=== PATIENT | male | born 1950 | race Hispanic/Latino ===

== ENCOUNTER 2018-06-04 16:01 | Inpatient (IN) | payer MEDICARE ==
[~2018-06-04] VITALS: Ht 165.1 cm; Wt 75.4 kg
--- OUTSIDE RECORDS SUMMARY | 2018-06-04 16:07 | XMS REPORT | Summary of Care ---
Author Author KAT García, SHAWNEE Organization Unknown Address [facility] Phone Unavailable Care Team Providers Care Cabinet Finisher Name Role Phone R.N. 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 Active Isosorbide Mononitrate ER 60 MG Oral Tablet Extended Release 24 Hour * Refills: 0 R.N. Active Aspirin 81 MG TABS * Refills: 0 R.N. Active Atorvastatin Calcium 80 MG Oral Tablet * Refills: 0 R.N. Active Bumetanide 2 MG Oral Tablet * Refills: 0 R.N. Active Famotidine 20 MG Oral Tablet * Refills: 0 R.N. Active Carvedilol 6.25 MG Oral Tablet * Refills: 0 R.N. Active Clopidogrel Bisulfate 75 MG Oral Tablet * Refills: 0 R.N. Active Warfarin Sodium 6 MG Oral Tablet * Refills: 0 R.N. Active Allergies and Adverse Reactions Name Dates Details Allergy history not documented Status: Past Medical History Name Dates Details History of Stage 3 chronic kidney disease (585.3, N18.3) Status: Resolved History of type 2 diabetes mellitus (V12.29, Z86.39) Status: Resolved Procedures Procedure Dates Details [QL] BASIC METABOLIC PANEL W/EGFR Date: 10-Mar-2018 [QL] BASIC METABOLIC PANEL W/EGFR Date: 25-Mar-2018 [QLH] FERRITIN Date: 25-Mar-2018 [QL] VITAMIN D, 25-HYDROXY, LC/MS/MS Date: 25-Mar-2018 [QL] PTH, INTACT (WITHOUT CALCIUM) Date: 25-Mar-2018 Immunization Name Dates Details Immunizations not documented Social History Name Dates Details Unknown if ever smoked Vital Signs Date Test Result Details [id number] BP Systolic 104 mm[Hg] Status: BP Diastolic 63 mm[Hg] Status: Height 65 in Status: Weight 167 lb Status: Body Mass Index Calculated 27.79 kg/m2 Status: Body Surface Area Calculated 1.83 m2 Status: Heart Rate 66 /min Status: Respiration Rate 18 /min Status: O2 SAT 93 % Status: Comments: Source: RA Results Date Description Value Details :06 [[facility]] BASIC METABOLIC PANEL W/EGFR Glucose Lvl 149 mg/dl (Above high threshold) Range: 70-99 Comments: Adult reference range values reflect the clinical guidelinesof the [place] [employer]. Blood Urea Nitrogen 49 mg/dl (Above high threshold) Range: 7-22 Creatinine Lvl 2.90 mg/dl (Above high threshold) Range: 0.50-1.40 Sodium Level 143 {mEq/l} Range: 135-145 Potassium Level 5.1 {mEq/l} Range: 3.5-5.1 Chloride Level 110 {mEq/l} (Above high threshold) Range: 95-109 Carbon Dioxide 27 {mEq/l} Range: 24-32 AGAP 11.1 {mEq/l} Range: 10.0-20.0 Calcium Level Total 8.0 mg/dl (Below low threshold) Range: 8.5-10.5 eGFR 21 {ML/MIN/1.7} Comments: The eGFR is calculated using the CKD-EPI formula. In most young, healthyindividuals the eGFR will be >90 mL/min/1.73m2. The eGFR declines with age. AneGFR of 60-89 may be normal in some populations, particularly the elderly, forwhom the CKD-EPI formula has not been extensively validated. Use of the eGFR isnot recommended in the following populations:Individuals with unstable creatinine concentrations, including patients and those with serious co-morbid conditions.Patients with extremes in muscle mass or diet.The data above are obtained from the National Kidney Disease Education Program(NKDEP) which additionally recommends that when the eGFR is used in patientswith extremes of body mass index for purposes of drug dosing, the eGFR shouldbe multiplied by the estimated BMI. :06 [QL] FERRITIN Ferritin Lvl 384 ng/ml (Above high threshold) Range: 22-275 :06 [QL] IRON AND TOTAL IRON BINDING CAPACITY Iron 28 ug/dL (Below low threshold) Range: 45-160 % Satur Fe 16 % Range: 12-57 TIBC 176 ug/dL (Below low threshold) Range: 228-428 UIBC 148 ug/dL Range: 110-370 [id number] [[facility]] PTH, INTACT (WITHOUT CALCIUM) Parathyroid Hormone Intact 145.5 pg/ml (Above high threshold) Range: 18.4-80.1 :06 [[facility]] URINALYSIS, COMPLETE UA Turbidity Clear Range: Clear UA Spec Grav 1.012 Range: <=1.030 UA pH 5.0 Range: 5.0-8.0 UA Protein >=300 mg/dl (Abnormal) Range: Negative UA Ketones Negative mg/dl Range: Negative UA Bili Negative Range: Negative UA Blood Small (Abnormal) Range: Negative UA Nitrite Negative Range: Negative UA Leuk Est Negative Range: Negative UA RBC 4 {/HPF} (Above high threshold) Range: 0-2 UA WBC 2 {/HPF} Range: 0-5 UA Mucus Few {/LPF} Range: None Seen UA Sq Epi Occasional {/LPF} Range: Few Urine Hyaline Casts 3 {/LPF} (Above high threshold) Range: 0-2 UA Color Ltyellow UA Glucose 50 mg/dl UROBILINOGEN <=1.0 mg/dl Range: 0.1-1.0 [id number] [] PROTEIN, TOTAL W/CREAT, RANDOM URINE U Creatinine 66.90 mg/dl Comments: No established reference ranges. Urine Protein Level 506.5 mg/dl Comments: No established reference ranges. U Prot/Creat 7.57 [id number] [[facility]] VITAMIN D, 25-HYDROXY, LC/MS/MS Vitamin D, 25-OH, Total 10.0 ng/ml (Below low threshold) Range: 30.0-100.0 Comments: Reference range is based on recommendations in the [employer] Clinical Practice Guideline (J Clin Endocrinol [id number];96:8230-6681) Plan of Care Name Dates Details Planned Observations Planned Goals not documented Planned Encounters Appointment; SHAWNEE STEPHENS M.D. On: 29-Jul-2018 14:15 Instructions Name Dates Details Instructions not documented Encounters Appointment; SHAWNEE STEPHENS M.D. Encounter Diagnosis: Problem not documented On: 25-Mar-2018 14:00
--- OUTSIDE RECORDS SUMMARY | 2018-06-04 16:07 | XMS REPORT ---
Author Author [facility] Address Unknown Phone Unavailable Care Team Providers Care Stock Associate Name Role Phone BRIGID GAYTAN PP Unavailable PATRICA WILLOUGHBY M.D. Unavailable Unavailable LYUDMILA DEAN M.D. Unavailable Unavailable HEATHER WOODSON M.D. Unavailable Unavailable Problems This patient has no known problems. Allergies, Adverse Reactions, Alerts This patient has no known allergies or adverse reactions. Medications This patient has no known medications. Encounters Start Date/Time End Date/Time Encounter Type Admission Type Attending [facility] Facility Care Department Encounter ID 2017-10-27 00:01:00 2017-10-27 00:01:00 Outpatient C [facility] [place] [id number] 2017-09-27 00:01:00 2017-09-27 00:01:00 Outpatient C [facility] [place] [id number] 2017-09-19 23:12:00 2017-09-22 07:27:00 Inpatient E PATRICA WILLOUGHBY M.D. [facility] [place] [id number] 2017-08-28 09:15:00 2017-08-28 09:15:00 Inpatient C [facility] [place] [id number] 2017-08-16 12:03:00 2017-08-19 13:21:00 Inpatient E LYUDMILA DEAN M.D. [facility] [place] [facility] [id number] 2017-06-15 09:36:00 2017-06-15 09:36:00 Outpatient HEATHER BARONE M.D. [facility] [place] [facility] [id number] 2014-05-04 08:43:00 2014-05-04 08:43:00 Emergency E [facility] [place] [facility] [id number] Results Test Description Test Time Test Comments Text Results Atomic Results Result Comments AFB Culture and Smear 2017-10-07 14:19:00 Specimen/Source: Abscess/Rt. GroinCollected: 08/18/2017 08:30 Status: Final Last Updated: 10/07/2017 14:19 [id number]-Rczydzmgjdcj (Final) (Final) 08/19/17 No acid fast bacill seen on direct smear Culture Result (Final) (Final) 10/07/17 No growth of AFB at six (6) weeks Fungus Culture with Stain 2017-10-05 09:05:00 Specimen/Source: Abscess/Rt. GroinCollected: 08/18/2017 08:30 Status: Final Last Updated: 10/05/2017 09:05 Fungal Smear Result (Final) (Final) 08/19/17 No yeast or hyphae seen Culture Result (Final) (Final) 10/05/17 No fungus isolated at 6 weeks Culture, Blood Routine 2017-09-24 20:23:00 Specimen: BloodCollected: 09/19/2017 18:31 Status: Final Last Updated: 09/24/2017 20:23 Culture Result (Final) (Final) No Growth After 5 Days Culture, Blood Routine 2017-09-24 20:23:00 Specimen: BloodCollected: 09/19/2017 18:31 Status: Final Last Updated: 09/24/2017 20:23 Culture Result (Final) (Final) No Growth After 5 Days POC Glucose, Blood 2017-09-22 07:47:00 POC Glucose (test code=POCGLUC) 96 mg/dL 70-115 If you consider your patient critically ill, the Miriam Accu-Chek InformII metershould not be used for Glucose determinations.Draw a venous Glucose and send to the Main Lab for Analysis. RBC, Crossmatch 06:00:00* Test Item Value Reference Range Comments Product 1 Code (test code=PRODCODE1) E4532 Unit 1 ID (test code=UNITID1) [id number] Unit 1 ABO (test code=UNITABO1) A Unit 1 Rh (test code=UNITRH1) POS Unit 1 Interp (test code=UNITINTERP1) Compatible Unit 1 Status (test code=UNITSTAT1) PT Product 2 Code (test code=PRODCODE2) E4532 Unit 2 ID (test code=UNITID2) [id number] Unit 2 ABO (test code=UNITABO2) A Unit 2 Rh (test code=UNITRH2) POS Unit 2 Interp (test code=UNITINTERP2) Compatible Unit 2 Status (test code=UNITSTAT2) PT POC Glucose, [id number] 20:32:00* Test Item Value Reference Range Comments POC Glucose (test code=POCGLUC) 176 mg/dL 70-115 If you consider your patient critically ill, the Miriam Accu-Chek InformII metershould not be used for Glucose determinations.Draw a venous Glucose and send to the Main Lab for Analysis. POC Glucose, [id number] 16:37:00* Test Item Value Reference Range Comments POC Glucose (test code=POCGLUC) 132 mg/dL 70-115 If you consider your patient critically ill, the Miriam Accu-Chek InformII metershould not be used for Glucose determinations.Draw a venous Glucose and send to the Main Lab for Analysis. XR CHEST 1 [id number] 12:16:47XR CHEST 1 VIEWLOCATION: [id number]: chest radiograph 09/19/2017INDICATION: edemaDISCUSSION:A single portable chest radiograph was submitted for interpretation.Lines/tubes: None.There is unchanged pulmonary edema with bibasilar opacity.The cardiac silhouette is prominent, but stable.Mild aortic calcification is present. Osseous structures are stable.IMPRESSION:Unchanged pulmonary edema with bibasilar opacity.POC Glucose, [id number] 11:41:00* Test Item Value Reference Range Comments POC Glucose (test code=POCGLUC) 105 mg/dL 70-115 If you consider your patient critically ill, the Miriam Accu-Chek InformII metershould not be used for Glucose determinations.Draw a venous Glucose and send to the Main Lab for Analysis. POC Glucose, [id number] 07:55:00* Test Item Value Reference Range Comments POC Glucose (test code=POCGLUC) 86 mg/dL 70-115 If you consider your patient critically ill, the Miriam Accu-Chek InformII metershould not be used for Glucose determinations.Draw a venous Glucose and send to the Main Lab for Analysis. Basic Metabolic [id number] 07:27:00* Test Item Value Reference Range Comments Sodium (test code=NA) 137 mmol/L 135-145 Potassium (test code=K) 4.2 mmol/L 3.5-5.1 Chloride (test code=CL) 97 mmol/L 98-105 Carbon Dioxide (test code=CO2) 27 mmol/L 22-29 Glucose (test code=GLU) 70 mg/dL 70-115 Blood Urea Nitrogen (test code=BUN) 51 mg/dL 8-23 Creatinine (test code=CREAT) 1.6 mg/dL 0.7-1.2 Calcium (test code=CA) 8.3 mg/dL 8.3-10.5 BUN/Creatinine Ratio (test code=BCRATIO) 31.9 Anion Gap (test code=AGAP) 13 mmol/L 7-16 Estimated GFR (test code=GFR) 46 mL/min/1.73m2 eGFR (estimated Glomerular Filtration Rate) is an estimated value,calculated from the patient's serum creatinine using the MDRD equation.It is NOT the patient's actual GFR. The eGFR provides a more clinicallyuseful measure of kidney disease than serum creatinine alone.This calculation takes sex and race into account, if the informationis provided. If the race is not provided, and the patient isAfrican-Prydeinig, multiply by 1.212. If sex is not provided, and thepatient is female, multiply by 0.742. Results for patients <18 years ofage have not been validated by the MDRD study and should be interpretedwith caution.eGFR Result Interpretation:eGFR > or=60 is in the Normal RangeeGFR < 60 may mean kidney diseaseeGFR < 15 may mean kidney failureRanges recommended by the National Kidney Foundat ion,http://nkdep.nih.gov CBC with [id number] 07:18:00* Test Item Value Reference Range Comments WBC (test code=WBC) 7.0 K/cumm 4.4-10.5 RBC (test code=RBC) 3.25 M/cumm 4.10-5.70 Hemoglobin (test code=HGB) 9.7 gm/dL 13.4-17.4 READ BACK LAB VALUESVERIFIED BY REPEAT TESTINGrechecked& called to dionna,rn @ 1743, no info given/cheryl Hematocrit (test code=HCT) 28.8 % 38.7-52.0 MCV (test code=MCV) 88.6 fL 80-100 MCH (test code=MCH) 29.8 pg 27.0-32.5 MCHC (test code=MCHC) 33.6 g/dL 32.0-37.5 RDW (test code=RDW) 14.9 % 11.5-14.5 Platelet Count (test code=PLTCT) 245 K/cumm 140-440 MPV (test code=MPV) 9.4 fL Diff Method (test code=DIFFM) Auto Neutrophil (test code=NEUT) 43.8 % 36-70 Lymphocyte (test code=LYMPH) 36.0 % 12-44 Monocyte (test code=MONO) 7.0 % 0-11 Eosinophil (test code=EOS) 12.6 % 0-7 Basophil (test code=BASO) 0.7 % 0-2 Neutro Abs (test code=ANEUT) 3.1 K/cumm 1.6-7.4 Lymph Abs (test code=ALYMPH) 2.5 K/cumm 0.5-4.6 Coamo Abs (test code=AMONO) 0.5 K/cumm 0.0-1.2 Eos Abs (test code=AEOS) 0.88 K/cumm 0.00-0.74 Baso Abs (test code=ABASO) 0.1 K/cumm 0.00-0.21 POC Glucose, [id number] 21:51:00* Test Item Value Reference Range Comments POC Glucose (test code=POCGLUC) 91 mg/dL 70-115 If you consider your patient critically ill, the Miriam Accu-Chek InformII metershould not be used for Glucose determinations.Draw a venous Glucose and send to the Main Lab for Analysis. POC Glucose, [id number] 17:19:00* Test Item Value Reference Range Comments POC Glucose (test code=POCGLUC) 102 mg/dL 70-115 If you consider your patient critically ill, the Miriam Accu-Chek InformII metershould not be used for Glucose determinations.Draw a venous Glucose and send to the Main Lab for Analysis. CK [id number] 12:46:00* Test Item Value Reference Range Comments CK (test code=CK) 342 U/L 39-308 Troponin [id number] 12:46:00* Test Item Value Reference Range Comments Troponin T (test code=ABBEY) 0.011 ng/mL 0.000-0.090 CK [id number] 12:46:00* Test Item Value Reference Range Comments CK (test code=CK) 342 U/L 39-308 CKMB (test code=CKMB) 2.4 ng/mL 0.0-4.9 CKMB% (test code=CKMBP) 0.7 % 0.0-3.4 POC Glucose, [id number] 07:38:00* Test Item Value Reference Range Comments POC Glucose (test code=POCGLUC) 128 mg/dL 70-115 Notify RN or MDIf you consider your patient critically ill, the Miriam Accu-Chek InformII metershould not be used for Glucose determinations.Draw a venous Glucose and send to the Main Lab for Analysis. Djy-[id number] 06:00:00* Test Item Value Reference Range Comments NT ProBnp (test code=PBNP) 30096 pg/mL 0-124 Troponin [id number] 06:00:00* Test Item Value Reference Range Comments Troponin T (test code=ABBEY) 0.020 ng/mL 0.000-0.090 CK [id number] 06:00:00* Test Item Value Reference Range Comments CK (test code=CK) 314 U/L 39-308 CKMB (test code=CKMB) 2.6 ng/mL 0.0-4.9 CKMB% (test code=CKMBP) 0.8 % 0.0-3.4 CK [id number] 05:59:00* Test Item Value Reference Range Comments CK (test code=CK) 314 U/L 39-308 Partial Thromboplastin [id number] 22:34:00* Test Item Value Reference Range Comments aPTT (test code=PTT) 31.00 seconds 24.39-37.25 Prothrombin [id number] 22:34:00* Test Item Value Reference Range Comments PT (test code=PT) 13.80 seconds 9.78-13.35 INR (test code=INR) 1.22 Ratio 0.6-1.2 Blood Type and [id number] 22:26:00* Test Item Value Reference Range Comments ABO type (test code=ABO) A Rh Type (test code=RH) Positive Antibody Screen - [id number] 22:26:00* Test Item Value Reference Range Comments Antibody Screen (test code=ABSCR) Negative CK [id number] 21:21:00* Test Item Value Reference Range Comments CK (test code=CK) 211 U/L 39-308 CKMB (test code=CKMB) 1.8 ng/mL 0.0-4.9 CKMB% (test code=CKMBP) 0.9 % 0.0-3.4 CK [id number] 21:21:00* Test Item Value Reference Range Comments CK (test code=CK) 211 U/L 39-308 CBC with [id number] 21:21:00* Test Item Value Reference Range Comments WBC (test code=WBC) 5.6 K/cumm 4.4-10.5 RBC (test code=RBC) 2.34 M/cumm 4.10-5.70 Hemoglobin (test code=HGB) 6.9 gm/dL 13.4-17.4 VERIFIED BY REPEAT TESTINGREAD BACK LAB VALUESLAWSON @ :09/19/2017 EO Hematocrit (test code=HCT) 21.0 % 38.7-52.0 VERIFIED BY REPEAT TESTINGREAD BACK LAB VALUESLAWSON @ :09/19/2017 EO MCV (test code=MCV) 89.6 fL 80-100 MCH (test code=MCH) 29.6 pg 27.0-32.5 MCHC (test code=MCHC) 33.0 g/dL 32.0-37.5 RDW (test code=RDW) 14.8 % 11.5-14.5 Platelet Count (test code=PLTCT) 212 K/cumm 140-440 MPV (test code=MPV) 6.8 fL Diff Method (test code=DIFFM) Auto Neutrophil (test code=NEUT) 71.6 % 36-70 Lymphocyte (test code=LYMPH) 17.8 % 12-44 Monocyte (test code=MONO) 8.7 % 0-11 Eosinophil (test code=EOS) 1.4 % 0-7 Basophil (test code=BASO) 0.5 % 0-2 Neutro Abs (test code=ANEUT) 4.0 K/cumm 1.6-7.4 Lymph Abs (test code=ALYMPH) 1.0 K/cumm 0.5-4.6 Coamo Abs (test code=AMONO) 0.5 K/cumm 0.0-1.2 Eos Abs (test code=AEOS) 0.08 K/cumm 0.00-0.74 Baso Abs (test code=ABASO) 0.0 K/cumm 0.00-0.21 [id number]-[id number] 21:20:00* Test Item Value Reference Range Comments NT ProBnp (test code=PBNP) 21438 pg/mL 0-124 Troponin [id number] 21:20:00* Test Item Value Reference Range Comments Troponin T (test code=ABBEY) 0.017 ng/mL 0.000-0.090 Comprehensive Metabolic [id number] 21:20:00* Test Item Value Reference Range Comments Sodium (test code=NA) 139 mmol/L 135-145 Potassium (test code=K) 4.2 mmol/L 3.5-5.1 Chloride (test code=CL) 101 mmol/L 98-105 Carbon Dioxide (test code=CO2) 27 mmol/L 22-29 Glucose (test code=GLU) 144 mg/dL 70-115 Blood Urea Nitrogen (test code=BUN) 41 mg/dL 8-23 Creatinine (test code=CREAT) 1.5 mg/dL 0.7-1.2 Calcium (test code=CA) 7.9 mg/dL 8.3-10.5 Prot Total (test code=TP) 6.9 g/dL 6.4-8.3 Albumin (test code=ALB) 3.1 g/dL 3.5-5.2 A/G Ratio (test code=AGRATIO) 0.8 Ratio Globulin (test code=GLOB) 3.8 2.9-3.1 Bili Total (test code=TBIL) 0.4 mg/dL 0.1-0.9 Alk Phos (test code=APHOS) 100 U/L 40-129 AST (test code=AST) 15 U/L 1-40 ALT (test code=ALT) 13 U/L 1-41 BUN/Creatinine Ratio (test code=BCRATIO) 27.3 Anion Gap (test code=AGAP) 11 mmol/L 7-16 Estimated GFR (test code=GFR) 49 mL/min/1.73m2 eGFR (estimated Glomerular Filtration Rate) is an estimated value,calculated from the patient's serum creatinine using the MDRD equation.It is NOT the patient's actual GFR. The eGFR provides a more clinicallyuseful measure of kidney disease than serum creatinine alone.This calculation takes sex and race into account, if the informationis provided. If the race is not provided, and the patient isAfrican-Prydeinig, multiply by 1.212. If sex is not provided, and thepatient is female, multiply by 0.742. Results for patients <18 years ofage have not been validated by the MDRD study and should be interpretedwith caution.eGFR Result Interpretation:eGFR > or=60 is in the Normal RangeeGFR < 60 may mean kidney diseaseeGFR < 15 may mean kidney failureRanges recommended by the National Kidney Foundat ion,http://nkdep.nih.gov Influenza B [id number] 20:20:00Specimen: NasalCollected: 09/19/2017 19:15 Status: Final Last Updated: 09/19/2017 20:20 Influenza B Ag (Final) (Final) Negative for Flu B protein antigen FLU COMMENT 1 (Final) (Final) A negative test result does not exclude infection with influenza Aor B. Flu A or B antigen in the sample may be below the detection limitof the test. Culture of negative samples is recommended. Influenza A Antigen 2017-09-19 20:18:00Specimen: NasalCollected: 09/19/2017 19:15 Status: Final Last Updated: 09/19/2017 20:18 Influenza A Ag (Final) (Final) Negative for Flu A protein antigen FLU COMMENT 1 (Final) (Final) A negative test result does not exclude infection with influenza Aor B. Flu A or B antigen in the sample may be below the detection limitof the test. Culture of negative samples is recommended. Lactic Acid [id number] 19:06:00 * Test Item Value Reference Range Comments Lactic Acid, Bld (test code=LAC) 1.2 mmol/L 0.5-1.9 XR CHEST 1 [id number] 19:03:04EXAM: CHEST ONE VIEWINDICATION: Shortness of breathCOMPARISON: July 24, 2017TECHNIQUE: AP view of the chest.FINDINGS: The cardiomediastinal silhouette is enlarged. There are diffusecongestive changes bilaterally. No pneumothorax or pleural effusion isidentified. The osseous structures are unremarkable.IMPRESSION: Cardiomegaly with diffuse congestive changes bilaterally.LOCATION: [id number], Wound [id number] 08:53:00 Specimen/Source: Abscess/Rt. GroinCollected: 08/18/2017 08:30 Status: Final Last Updated: 08/23/2017 08:53 Gram Stain (Final) (Final) No organs ims seen, No WBC's seen Culture Result (Final) (Final) 08/20/17 Rare Diphthe roids 08/23/17 Moderate Peptostreptococcus Isolate (Final) (Final) 8 Few Staph-coag positive Isolate (Final) (Final) 08/20/17 Rare Staph- coag negative Isolate Isolate Staph-coag positive Staph-coag negative MAURY (mcg/ml) Amoxicilli n/Clav (JAN)<=4/2 Susceptible <=4/2 Resistant Ampicillin (AM) 8 Resistant Ampicillin/Sulb (A/S) <=8/4 Susceptible <=8/4 Resistant Cefazolin (CFZ) <=4 Susceptible <=4 Resistant Ceftriaxone (DOOR LINER) <=4 Susceptible 32 Resistant Chloramphenicol (C) <=8 Susceptible <=8 Susceptible Ciprofloxacin (CP) <=1 Susceptible >2 Resistant Clindamycin (CM) <=0.25 Susceptible >4 Resistant Erythromycin (E) 0.5 Susceptible >4 Resistant Gentamicin (GM) 2 Susceptible >8 Resistant Imipenem (IMP) <=4 Susceptible 8 Resistant Levofloxacin (LEV) <=0.5 Susceptible >4 Resistant Linezolid (LNZ) 4 Susceptible 1 Susceptible Oxacillin (OX1) <=0.25 Susceptible >2 Resistant Penicillin (P) >8 Resistant 8 Resistant Rifampin (RA) < =1 Susceptible <=1 Susceptible Tetracycline (TE) <=1 Susceptible 2 Susceptible Trimethoprim/Sulfa <=0.5/9.Susceptible >2/38 Resistant (SXT) 5 Vancomycin (VA) 2 Susceptible 4 Susceptible Antibiotic Summary Grid: JAN AM A/S CFZ DOOR LINER C CP CM E GM IMP Staph-coag positive S R S S S S S S S S S Staph-coag negative R R R R S R R R R R LEV LNZ OX1 P RA TE SXT VA Staph-coag positive S S S R S S S S Staph-coag negative R S R R S S R S Culture, Blood [id number] 08:22:00Specimen: BloodCollected: 08/15/2017 20:23 Status: Final Last Updated: 08/21/2017 08:22 (1) ER Bed 5 Culture Result (Final) (Final) No Growth After 5 Days Culture, Blood [id number] 08:22:00Specimen: BloodCollected: 08/15/2017 20:23 Status: Final Last Updated: 08/21/2017 08:22 (1) ER Bed 5 Culture Result (Final) (Final) No Growth After 5 Days POC Glucose, [id number] 12:05:00* Test Item Value Reference Range Comments POC Glucose (test code=POCGLUC) 119 mg/dL 70-115 Notify RN or MDIf you consider your patient critically ill, the Miriam Accu-Chek InformII metershould not be used for Glucose determinations.Draw a venous Glucose and send to the Main Lab for Analysis. POC Glucose, [id number] 07:28:00* Test Item Value Reference Range Comments POC Glucose (test code=POCGLUC) 111 mg/dL 70-115 If you consider your patient critically ill, the Miriam Accu-Chek InformII metershould not be used for Glucose determinations.Draw a venous Glucose and send to the Main Lab for Analysis. CBC with [id number] 06:43:00* Test Item Value Reference Range Comments WBC (test code=WBC) 7.4 K/cumm 4.4-10.5 RBC (test code=RBC) 2.85 M/cumm 4.10-5.70 Hemoglobin (test code=HGB) 8.2 gm/dL 13.4-17.4 Hematocrit (test code=HCT) 26.0 % 38.7-52.0 MCV (test code=MCV) 91.3 fL 80-100 MCH (test code=MCH) 29.0 pg 27.0-32.5 MCHC (test code=MCHC) 31.7 g/dL 32.0-37.5 RDW (test code=RDW) 14.2 % 11.5-14.5 Platelet Count (test code=PLTCT) 225 K/cumm 140-440 MPV (test code=MPV) 9.4 fL Diff Method (test code=DIFFM) Auto Neutrophil (test code=NEUT) 55.3 % 36-70 Lymphocyte (test code=LYMPH) 25.1 % 12-44 Monocyte (test code=MONO) 7.2 % 0-11 Eosinophil (test code=EOS) 11.7 % 0-7 Basophil (test code=BASO) 0.7 % 0-2 Neutro Abs (test code=ANEUT) 4.1 K/cumm 1.6-7.4 Lymph Abs (test code=ALYMPH) 1.8 K/cumm 0.5-4.6 Coamo Abs (test code=AMONO) 0.5 K/cumm 0.0-1.2 Eos Abs (test code=AEOS) 0.86 K/cumm 0.00-0.74 Baso Abs (test code=ABASO) 0.1 K/cumm 0.00-0.21 Magnesium, [id number] 06:38:00* Test Item Value Reference Range Comments Magnesium (test code=MG) 2.1 mg/dL 1.7-2.5 [id number] 06:38:00* Test Item Value Reference Range Comments Phosphorus (test code=PO4) 4.9 mg/dL 2.70-4.50 Basic Metabolic [id number] 06:38:00* Test Item Value Reference Range Comments Sodium (test code=NA) 135 mmol/L 135-145 Potassium (test code=K) 4.9 mmol/L 3.5-5.1 Chloride (test code=CL) 101 mmol/L 98-105 Carbon Dioxide (test code=CO2) 26 mmol/L 22-29 Glucose (test code=GLU) 101 mg/dL 70-115 Blood Urea Nitrogen (test code=BUN) 39 mg/dL 8-23 Creatinine (test code=CREAT) 1.9 mg/dL 0.7-1.2 Calcium (test code=CA) 8.2 mg/dL 8.3-10.5 BUN/Creatinine Ratio (test code=BCRATIO) 20.5 Anion Gap (test code=AGAP) 8 mmol/L 7-16 Estimated GFR (test code=GFR) 38 mL/min/1.73m2 eGFR (estimated Glomerular Filtration Rate) is an estimated value,calculated from the patient's serum creatinine using the MDRD equation.It is NOT the patient's actual GFR. The eGFR provides a more clinicallyuseful measure of kidney disease than serum creatinine alone.This calculation takes sex and race into account, if the informationis provided. If the race is not provided, and the patient isAfrican-Prydeinig, multiply by 1.212. If sex is not provided, and thepatient is female, multiply by 0.742. Results for patients <18 years ofage have not been validated by the MDRD study and should be interpretedwith caution.eGFR Result Interpretation:eGFR > or=60 is in the Normal RangeeGFR < 60 may mean kidney diseaseeGFR < 15 may mean kidney failureRanges recommended by the National Kidney Foundat ion,http://nkdep.nih.gov Vancomycin, [id number] 22:26:00* Test Item Value Reference Range Comments [place] (test code=VANTR) 13.4 ug/mL 10.0-20.0 POC Glucose, [id number] 20:35:00* Test Item Value Reference Range Comments POC Glucose (test code=POCGLUC) 161 mg/dL 70-115 If you consider your patient critically ill, the Miriam Accu-Chek InformII metershould not be used for Glucose determinations.Draw a venous Glucose and send to the Main Lab for Analysis. POC Glucose, [id number] 16:31:00* Test Item Value Reference Range Comments POC Glucose (test code=POCGLUC) 116 mg/dL 70-115 Notify RN or MDIf you consider your patient critically ill, the Miriam Accu-Chek InformII metershould not be used for Glucose determinations.Draw a venous Glucose and send to the Main Lab for Analysis. POC Glucose, [id number] 12:12:00* Test Item Value Reference Range Comments POC Glucose (test code=POCGLUC) 96 mg/dL 70-115 Notify RN or MDIf you consider your patient critically ill, the Miriam Accu-Chek InformII metershould not be used for Glucose determinations.Draw a venous Glucose and send to the Main Lab for Analysis. POC Glucose, [id number] 09:55:00* Test Item Value Reference Range Comments POC Glucose (test code=POCGLUC) 101 mg/dL 70-115 If you consider your patient critically ill, the Miriam Accu-Chek InformII metershould not be used for Glucose determinations.Draw a venous Glucose and send to the Main Lab for Analysis. Sed Rate ESR ([place])2017-08-18 08:06:00* Test Item Value Reference Range Comments ESR (test code=HESR) 89 mm/Hr 0-9 Basic Metabolic [id number] 07:22:00* Test Item Value Reference Range Comments Sodium (test code=NA) 139 mmol/L 135-145 Potassium (test code=K) 4.7 mmol/L 3.5-5.1 Chloride (test code=CL) 102 mmol/L 98-105 Carbon Dioxide (test code=CO2) 25 mmol/L 22-29 Glucose (test code=GLU) 106 mg/dL 70-115 Blood Urea Nitrogen (test code=BUN) 30 mg/dL 8-23 Creatinine (test code=CREAT) 1.5 mg/dL 0.7-1.2 Calcium (test code=CA) 9.1 mg/dL 8.3-10.5 BUN/Creatinine Ratio (test code=BCRATIO) 20.0 Anion Gap (test code=AGAP) 12 mmol/L 7-16 Estimated GFR (test code=GFR) 49 mL/min/1.73m2 eGFR (estimated Glomerular Filtration Rate) is an estimated value,calculated from the patient's serum creatinine using the MDRD equation.It is NOT the patient's actual GFR. The eGFR provides a more clinicallyuseful measure of kidney disease than serum creatinine alone.This calculation takes sex and race into account, if the informationis provided. If the race is not provided, and the patient isAfrican-Prydeinig, multiply by 1.212. If sex is not provided, and thepatient is female, multiply by 0.742. Results for patients <18 years ofage have not been validated by the MDRD study and should be interpretedwith caution.eGFR Result Interpretation:eGFR > or=60 is in the Normal RangeeGFR < 60 may mean kidney diseaseeGFR < 15 may mean kidney failureRanges recommended by the National Kidney Foundat ion,http://nkdep.nih.gov C-Reactive Protein, [id number] 07:22:00* Test Item Value Reference Range Comments CRP (test code=CRP) 4.0 mg/L 0.0-5.0 POC Glucose, [id number] 04:20:00* Test Item Value Reference Range Comments POC Glucose (test code=POCGLUC) 108 mg/dL 70-115 Notify RN or MDIf you consider your patient critically ill, the Miriam Accu-Chek InformII metershould not be used for Glucose determinations.Draw a venous Glucose and send to the Main Lab for Analysis. POC Glucose, [id number] 20:54:00* Test Item Value Reference Range Comments POC Glucose (test code=POCGLUC) 146 mg/dL 70-115 Notify RN or MDIf you consider your patient critically ill, the Miriam Accu-Chek InformII metershould not be used for Glucose determinations.Draw a venous Glucose and send to the Main Lab for Analysis. POC Glucose, [id number] 17:18:00* Test Item Value Reference Range Comments POC Glucose (test code=POCGLUC) 128 mg/dL 70-115 Notify RN or MDIf you consider your patient critically ill, the Miriam Accu-Chek InformII metershould not be used for Glucose determinations.Draw a venous Glucose and send to the Main Lab for Analysis. POC Glucose, [id number] 11:56:00* Test Item Value Reference Range Comments POC Glucose (test code=POCGLUC) 160 mg/dL 70-115 Notify RN or MDIf you consider your patient critically ill, the [facility] Accu-Chek InformII metershould not be used for Glucose determinations.Draw a venous Glucose and send to the Main Lab for Analysis. US DUPLX LWR EXT ART/BPG, [id number] 08:14:56EXAM: US RIGHT LOWER EXTREMITY ARTERIAL DOPPLERDATE: 08/16/2017 9:17 PM INDICATION: Peripheral vascular disease ADDITIONAL INFORMATION: None.COMPARISON: Right lower extremity arterial Doppler July 31, 2017 TECHNIQUE: Multiplanar grayscale, color Doppler and spectral Dopplerultrasound images of the right lower extremity arteries.LOCATION: [id number]:Right Extremity Waveforms:Common Femoral Artery: 132cm/s TriphasicSuperficial Femoral Artery: 258cm/s Triphasic. At area of st enosisDistal superficial femoral artery: 110 cm/s, triphasic.Popliteal Artery: 7 7cm/s TriphasicPosterior Tibialis Artery: 141cm/s TriphasicAnterior Tibialis Art cornelius: 72cm/s TriphasicDorsalis Pedis Artery: 54cm/s monophasicIMPRESSION:1. Flow -limiting stenosis of the mid superficial femoral artery2. Probable additional stenosis in the posterior tibialis artery3. Abnormal waveform in the dorsalis p rylee artery may be secondary toupstream focal stenoses or diffuse stenosis of th e distal vasculature.Further evaluation could be obtained with digitally subtrac tedangiogram.POC Glucose, [id number] 07:49:00* Test Item Value Reference Range Comments POC Glucose (test code=POCGLUC) 145 mg/dL 70-115 Notify RN or MDIf you consider your patient critically ill, the [facility] Accu-Chek InformII metershould not be used for Glucose determinations.Draw a venous Glucose and send to the Main Lab for Analysis. Basic Metabolic [id number] 07:17:00* Test Item Value Reference Range Comments Sodium (test code=NA) 138 mmol/L 135-145 Potassium (test code=K) 4.7 mmol/L 3.5-5.1 Chloride (test code=CL) 104 mmol/L 98-105 Carbon Dioxide (test code=CO2) 25 mmol/L 22-29 Glucose (test code=GLU) 142 mg/dL 70-115 Blood Urea Nitrogen (test code=BUN) 34 mg/dL 8-23 Creatinine (test code=CREAT) 1.5 mg/dL 0.7-1.2 Calcium (test code=CA) 8.3 mg/dL 8.3-10.5 BUN/Creatinine Ratio (test code=BCRATIO) 22.7 Anion Gap (test code=AGAP) 9 mmol/L 7-16 Estimated GFR (test code=GFR) 49 mL/min/1.73m2 eGFR (estimated Glomerular Filtration Rate) is an estimated value,calculated from the patient's serum creatinine using the MDRD equation.It is NOT the patient's actual GFR. The eGFR provides a more clinicallyuseful measure of kidney disease than serum creatinine alone.This calculation takes sex and race into account, if the informationis provided. If the race is not provided, and the patient isAfrican-Prydeinig, multiply by 1.212. If sex is not provided, and thepatient is female, multiply by 0.742. Results for patients <18 years ofage have not been validated by the MDRD study and should be interpretedwith caution.eGFR Result Interpretation:eGFR > or=60 is in the Normal RangeeGFR < 60 may mean kidney diseaseeGFR < 15 may mean kidney failureRanges recommended by the National Kidney Foundat ion,http://nkdep.nih.gov Magnesium, [id number] 07:17:00* Test Item Value Reference Range Comments Magnesium (test code=MG) 2.1 mg/dL 1.7-2.5 [id number] 07:17:00* Test Item Value Reference Range Comments Phosphorus (test code=PO4) 4.4 mg/dL 2.70-4.50 POC Glucose, [id number] 19:16:00* Test Item Value Reference Range Comments POC Glucose (test code=POCGLUC) 173 mg/dL 70-115 If you consider your patient critically ill, the [facility] Accu-Chek InformII metershould not be used for Glucose determinations.Draw a venous Glucose and send to the Main Lab for Analysis. POC Glucose, [id number] 16:36:00* Test Item Value Reference Range Comments POC Glucose (test code=POCGLUC) 127 mg/dL 70-115 If you consider your patient critically ill, the [facility] Accu-Chek InformII metershould not be used for Glucose determinations.Draw a venous Glucose and send to the Main Lab for Analysis. POC Glucose, [id number] 11:21:00* Test Item Value Reference Range Comments POC Glucose (test code=POCGLUC) 143 mg/dL 70-115 If you consider your patient critically ill, the [facility] Accu-Chek InformII metershould not be used for Glucose determinations.Draw a venous Glucose and send to the Main Lab for Analysis. CBC with [id number] 06:59:00* Test Item Value Reference Range Comments WBC (test code=WBC) 9.4 K/cumm 4.4-10.5 RBC (test code=RBC) 3.30 M/cumm 4.10-5.70 Hemoglobin (test code=HGB) 9.7 gm/dL 13.4-17.4 Hematocrit (test code=HCT) 29.9 % 38.7-52.0 MCV (test code=MCV) 90.5 fL 80-100 MCH (test code=MCH) 29.3 pg 27.0-32.5 MCHC (test code=MCHC) 32.4 g/dL 32.0-37.5 RDW (test code=RDW) 14.0 % 11.5-14.5 Platelet Count (test code=PLTCT) 282 K/cumm 140-440 MPV (test code=MPV) 9.5 fL Diff Method (test code=DIFFM) Auto Neutrophil (test code=NEUT) 56.1 % 36-70 Lymphocyte (test code=LYMPH) 22.8 % 12-44 Monocyte (test code=MONO) 6.6 % 0-11 Eosinophil (test code=EOS) 13.4 % 0-7 Basophil (test code=BASO) 1.0 % 0-2 Neutro Abs (test code=ANEUT) 5.3 K/cumm 1.6-7.4 Lymph Abs (test code=ALYMPH) 2.1 K/cumm 0.5-4.6 Coamo Abs (test code=AMONO) 0.6 K/cumm 0.0-1.2 Eos Abs (test code=AEOS) 1.26 K/cumm 0.00-0.74 Baso Abs (test code=ABASO) 0.1 K/cumm 0.00-0.21 Comprehensive Metabolic [id number] 06:59:00* Test Item Value Reference Range Comments Sodium (test code=NA) 138 mmol/L 135-145 Potassium (test code=K) 5.3 mmol/L 3.5-5.1 Chloride (test code=CL) 104 mmol/L 98-105 Carbon Dioxide (test code=CO2) 25 mmol/L 22-29 Glucose (test code=GLU) 123 mg/dL 70-115 Blood Urea Nitrogen (test code=BUN) 37 mg/dL 8-23 Creatinine (test code=CREAT) 1.5 mg/dL 0.7-1.2 Calcium (test code=CA) 8.6 mg/dL 8.3-10.5 Prot Total (test code=TP) 7.2 g/dL 6.4-8.3 Albumin (test code=ALB) 3.3 g/dL 3.5-5.2 A/G Ratio (test code=AGRATIO) 0.8 Ratio Globulin (test code=GLOB) 3.9 2.9-3.1 Bili Total (test code=TBIL) 0.4 mg/dL 0.1-0.9 Alk Phos (test code=APHOS) 94 U/L 40-129 AST (test code=AST) 19 U/L 1-40 ALT (test code=ALT) 32 U/L 1-41 BUN/Creatinine Ratio (test code=BCRATIO) 24.7 Anion Gap (test code=AGAP) 9 mmol/L 7-16 Estimated GFR (test code=GFR) 49 mL/min/1.73m2 eGFR (estimated Glomerular Filtration Rate) is an estimated value,calculated from the patient's serum creatinine using the MDRD equation.It is NOT the patient's actual GFR. The eGFR provides a more clinicallyuseful measure of kidney disease than serum creatinine alone.This calculation takes sex and race into account, if the informationis provided. If the race is not provided, and the patient isAfrican-Prydeinig, multiply by 1.212. If sex is not provided, and thepatient is female, multiply by 0.742. Results for patients <18 years ofage have not been validated by the MDRD study and should be interpretedwith caution.eGFR Result Interpretation:eGFR > or=60 is in the Normal RangeeGFR < 60 may mean kidney diseaseeGFR < 15 may mean kidney failureRanges recommended by the National Kidney Foundat ion,http://nkdep.nih.gov CBC with [id number] 21:23:00* Test Item Value Reference Range Comments WBC (test code=WBC) 8.5 K/cumm 4.4-10.5 RBC (test code=RBC) 3.34 M/cumm 4.10-5.70 Hemoglobin (test code=HGB) 9.9 gm/dL 13.4-17.4 Hematocrit (test code=HCT) 30.4 % 38.7-52.0 MCV (test code=MCV) 91.0 fL 80-100 MCH (test code=MCH) 29.7 pg 27.0-32.5 MCHC (test code=MCHC) 32.7 g/dL 32.0-37.5 RDW (test code=RDW) 14.2 % 11.5-14.5 Platelet Count (test code=PLTCT) 300 K/cumm 140-440 MPV (test code=MPV) 9.2 fL Diff Method (test code=DIFFM) Manual Neutrophil (test code=NEUT) 52.0 % 36-70 Lymphocyte (test code=LYMPH) 25.0 % 12-44 Monocyte (test code=MONO) 4.0 % 0-11 Eosinophil (test code=EOS) 18.0 % 0-7 Basophil (test code=BASO) 1.0 % 0-2 Neutro Abs (test code=ANEUT) 4.4 K/cumm 1.6-7.4 Lymph Abs (test code=ALYMPH) 2.1 K/cumm 0.5-4.6 Coamo Abs (test code=AMONO) 0.3 K/cumm 0.0-1.2 Eos Abs (test code=AEOS) 1.53 K/cumm 0.00-0.74 Baso Abs (test code=ABASO) 0.1 K/cumm 0.00-0.21 RBC Morphology (test code=RBCMRPH) Moderate Hypochromia Platelet Est (test code=PLTEST) Normal Platelet on Smear Lactic Acid [id number] 20:53:00* Test Item Value Reference Range Comments Lactic Acid, Bld (test code=LAC) 0.9 mmol/L 0.5-1.9 Comprehensive Metabolic [id number] 20:53:00* Test Item Value Reference Range Comments Sodium (test code=NA) 134 mmol/L 135-145 Potassium (test code=K) 5.7 mmol/L 3.5-5.1 Chloride (test code=CL) 102 mmol/L 98-105 Carbon Dioxide (test code=CO2) 26 mmol/L 22-29 Glucose (test code=GLU) 145 mg/dL 70-115 Blood Urea Nitrogen (test code=BUN) 40 mg/dL 8-23 Creatinine (test code=CREAT) 1.7 mg/dL 0.7-1.2 Calcium (test code=CA) 8.5 mg/dL 8.3-10.5 Prot Total (test code=TP) 7.7 g/dL 6.4-8.3 Albumin (test code=ALB) 3.6 g/dL 3.5-5.2 A/G Ratio (test code=AGRATIO) 0.9 Ratio Globulin (test code=GLOB) 4.1 2.9-3.1 Bili Total (test code=TBIL) 0.3 mg/dL 0.1-0.9 Alk Phos (test code=APHOS) 97 U/L 40-129 AST (test code=AST) 18 U/L 1-40 ALT (test code=ALT) 32 U/L 1-41 BUN/Creatinine Ratio (test code=BCRATIO) 23.5 Anion Gap (test code=AGAP) 6 mmol/L 7-16 Estimated GFR (test code=GFR) 43 mL/min/1.73m2 eGFR (estimated Glomerular Filtration Rate) is an estimated value,calculated from the patient's serum creatinine using the MDRD equation.It is NOT the patient's actual GFR. The eGFR provides a more clinicallyuseful measure of kidney disease than serum creatinine alone.This calculation takes sex and race into account, if the informationis provided. If the race is not provided, and the patient isAfrican-Prydeinig, multiply by 1.212. If sex is not provided, and thepatient is female, multiply by 0.742. Results for patients <18 years ofage have not been validated by the MDRD study and should be interpretedwith caution.eGFR Result Interpretation:eGFR > or=60 is in the Normal RangeeGFR < 60 may mean kidney diseaseeGFR < 15 may mean kidney failureRanges recommended by the National Kidney Foundat ion,http://nkdep.nih.gov POC Glucose, [id number] 11:05:00* Test Item Value Reference Range Comments POC Glucose (test code=POCGLUC) 168 mg/dL 70-115 Notify RN or MDIf you consider your patient critically ill, the [facility] Accu-Chek InformII metershould not be used for Glucose determinations.Draw a venous Glucose and send to the Main Lab for Analysis. POC Glucose, [id number] 07:53:00* Test Item Value Reference Range Comments POC Glucose (test code=POCGLUC) 130 mg/dL 70-115 If you consider your patient critically ill, the [facility] Accu-Chek InformII metershould not be used for Glucose determinations.Draw a venous Glucose and send to the Main Lab for Analysis. CBC with [id number] 06:28:00* Test Item Value Reference Range Comments WBC (test code=WBC) 8.1 K/cumm 4.4-10.5 RBC (test code=RBC) 3.14 M/cumm 4.10-5.70 Hemoglobin (test code=HGB) 9.3 gm/dL 13.4-17.4 Hematocrit (test code=HCT) 28.8 % 38.7-52.0 MCV (test code=MCV) 91.9 fL 80-100 MCH (test code=MCH) 29.6 pg 27.0-32.5 MCHC (test code=MCHC) 32.2 g/dL 32.0-37.5 RDW (test code=RDW) 13.1 % 11.5-14.5 Platelet Count (test code=PLTCT) 354 K/cumm 140-440 MPV (test code=MPV) 6.4 fL Diff Method (test code=DIFFM) Auto Neutrophil (test code=NEUT) 54.1 % 36-70 Lymphocyte (test code=LYMPH) 26.6 % 12-44 Monocyte (test code=MONO) 6.9 % 0-11 Eosinophil (test code=EOS) 11.4 % 0-7 Basophil (test code=BASO) 0.9 % 0-2 Neutro Abs (test code=ANEUT) 4.4 K/cumm 1.6-7.4 Lymph Abs (test code=ALYMPH) 2.2 K/cumm 0.5-4.6 Coamo Abs (test code=AMONO) 0.6 K/cumm 0.0-1.2 Eos Abs (test code=AEOS) 0.93 K/cumm 0.00-0.74 Baso Abs (test code=ABASO) 0.1 K/cumm 0.00-0.21 POC Glucose, [id number] 21:31:00* Test Item Value Reference Range Comments POC Glucose (test code=POCGLUC) 186 mg/dL 70-115 If you consider your patient critically ill, the [facility] Accu-Chek InformII metershould not be used for Glucose determinations.Draw a venous Glucose and send to the Main Lab for Analysis. POC Glucose, [id number] 17:25:00* Test Item Value Reference Range Comments POC Glucose (test code=POCGLUC) 107 mg/dL 70-115 If you consider your patient critically ill, the [facility] Accu-Chek InformII metershould not be used for Glucose determinations.Draw a venous Glucose and send to the Main Lab for Analysis. POC Glucose, [id number] 12:17:00* Test Item Value Reference Range Comments POC Glucose (test code=POCGLUC) 99 mg/dL 70-115 If you consider your patient critically ill, the [facility] Accu-Chek InformII metershould not be used for Glucose determinations.Draw a venous Glucose and send to the Main Lab for Analysis. POC Glucose, [id number] 07:45:00* Test Item Value Reference Range Comments POC Glucose (test code=POCGLUC) 111 mg/dL 70-115 If you consider your patient critically ill, the [facility] Accu-Chek InformII metershould not be used for Glucose determinations.Draw a venous Glucose and send to the Main Lab for Analysis. CBC with [id number] 05:49:00* Test Item Value Reference Range Comments WBC (test code=WBC) 7.9 K/cumm 4.4-10.5 RBC (test code=RBC) 3.13 M/cumm 4.10-5.70 Hemoglobin (test code=HGB) 9.1 gm/dL 13.4-17.4 Hematocrit (test code=HCT) 27.0 % 38.7-52.0 MCV (test code=MCV) 86.2 fL 80-100 MCH (test code=MCH) 29.0 pg 27.0-32.5 MCHC (test code=MCHC) 33.7 g/dL 32.0-37.5 RDW (test code=RDW) 13.5 % 11.5-14.5 Platelet Count (test code=PLTCT) 342 K/cumm 140-440 MPV (test code=MPV) 9.7 fL Diff Method (test code=DIFFM) Auto Neutrophil (test code=NEUT) 52.5 % 36-70 Lymphocyte (test code=LYMPH) 22.6 % 12-44 Monocyte (test code=MONO) 9.4 % 0-11 Eosinophil (test code=EOS) 14.1 % 0-7 Basophil (test code=BASO) 1.5 % 0-2 Neutro Abs (test code=ANEUT) 4.1 K/cumm 1.6-7.4 Lymph Abs (test code=ALYMPH) 1.8 K/cumm 0.5-4.6 Coamo Abs (test code=AMONO) 0.7 K/cumm 0.0-1.2 Eos Abs (test code=AEOS) 1.11 K/cumm 0.00-0.74 Baso Abs (test code=ABASO) 0.1 K/cumm 0.00-0.21 POC Glucose, [id number] 20:54:00* Test Item Value Reference Range Comments POC Glucose (test code=POCGLUC) 119 mg/dL 70-115 If you consider your patient critically ill, the [facility] Accu-Chek InformII metershould not be used for Glucose determinations.Draw a venous Glucose and send to the Main Lab for Analysis. POC Glucose, [id number] 16:20:00* Test Item Value Reference Range Comments POC Glucose (test code=POCGLUC) 120 mg/dL 70-115 If you consider your patient critically ill, the [facility] Accu-Chek InformII metershould not be used for Glucose determinations.Draw a venous Glucose and send to the Main Lab for Analysis. POC Glucose, [id number] 11:11:00* Test Item Value Reference Range Comments POC Glucose (test code=POCGLUC) 98 mg/dL 70-115 If you consider your patient critically ill, the [facility] Accu-Chek InformII metershould not be used for Glucose determinations.Draw a venous Glucose and send to the Main Lab for Analysis. POC Glucose, [id number] 07:21:00* Test Item Value Reference Range Comments POC Glucose (test code=POCGLUC) 90 mg/dL 70-115 If you consider your patient critically ill, the [facility] Accu-Chek InformII metershould not be used for Glucose determinations.Draw a venous Glucose and send to the Main Lab for Analysis. CBC with [id number] 05:40:00* Test Item Value Reference Range Comments WBC (test code=WBC) 8.1 K/cumm 4.4-10.5 RBC (test code=RBC) 3.04 M/cumm 4.10-5.70 Hemoglobin (test code=HGB) 8.8 gm/dL 13.4-17.4 Hematocrit (test code=HCT) 26.3 % 38.7-52.0 MCV (test code=MCV) 86.5 fL 80-100 MCH (test code=MCH) 28.9 pg 27.0-32.5 MCHC (test code=MCHC) 33.4 g/dL 32.0-37.5 RDW (test code=RDW) 13.5 % 11.5-14.5 Platelet Count (test code=PLTCT) 343 K/cumm 140-440 MPV (test code=MPV) 9.3 fL Diff Method (test code=DIFFM) Auto Neutrophil (test code=NEUT) 51.0 % 36-70 Lymphocyte (test code=LYMPH) 24.7 % 12-44 Monocyte (test code=MONO) 9.2 % 0-11 Eosinophil (test code=EOS) 14.1 % 0-7 Basophil (test code=BASO) 1.0 % 0-2 Neutro Abs (test code=ANEUT) 4.1 K/cumm 1.6-7.4 Lymph Abs (test code=ALYMPH) 2.0 K/cumm 0.5-4.6 Coamo Abs (test code=AMONO) 0.7 K/cumm 0.0-1.2 Eos Abs (test code=AEOS) 1.14 K/cumm 0.00-0.74 Baso Abs (test code=ABASO) 0.1 K/cumm 0.00-0.21 POC Glucose, [id number] 20:03:00* Test Item Value Reference Range Comments POC Glucose (test code=POCGLUC) 85 mg/dL 70-115 If you consider your patient critically ill, the [facility] Accu-Chek InformII metershould not be used for Glucose determinations.Draw a venous Glucose and send to the Main Lab for Analysis. POC Glucose, [id number] 15:56:00* Test Item Value Reference Range Comments POC Glucose (test code=POCGLUC) 80 mg/dL 70-115 If you consider your patient critically ill, the [facility] Accu-Chek InformII metershould not be used for Glucose determinations.Draw a venous Glucose and send to the Main Lab for Analysis. POC Glucose, [id number] 15:56:00* Test Item Value Reference Range Comments POC Glucose (test code=POCGLUC) 88 mg/dL 70-115 If you consider your patient critically ill, the [facility] Accu-Chek InformII metershould not be used for Glucose determinations.Draw a venous Glucose and send to the Main Lab for Analysis. POC Glucose, [id number] 11:12:00* Test Item Value Reference Range Comments POC Glucose (test code=POCGLUC) 181 mg/dL 70-115 If you consider your patient critically ill, the [facility] Accu-Chek InformII metershould not be used for Glucose determinations.Draw a venous Glucose and send to the Main Lab for Analysis. Renal [id number] 07:14:00* Test Item Value Reference Range Comments Sodium (test code=NA) 139 mmol/L 135-145 Potassium (test code=K) 5.0 mmol/L 3.5-5.1 Chloride (test code=CL) 104 mmol/L 98-105 Carbon Dioxide (test code=CO2) 25 mmol/L 22-29 Glucose (test code=GLU) 78 mg/dL 70-115 Blood Urea Nitrogen (test code=BUN) 32 mg/dL 8-23 Creatinine (test code=CREAT) 1.7 mg/dL 0.7-1.2 Calcium (test code=CA) 8.1 mg/dL 8.3-10.5 Albumin (test code=ALB) 3.0 g/dL 3.5-5.2 Phosphorus (test code=PO4) 3.7 mg/dL 2.70-4.50 BUN/Creatinine Ratio (test code=BCRATIO) 18.8 Anion Gap (test code=AGAP) 10 mmol/L 7-16 Estimated GFR (test code=GFR) 43 mL/min/1.73m2 eGFR (estimated Glomerular Filtration Rate) is an estimated value,calculated from the patient's serum creatinine using the MDRD equation.It is NOT the patient's actual GFR. The eGFR provides a more clinicallyuseful measure of kidney disease than serum creatinine alone.This calculation takes sex and race into account, if the informationis provided. If the race is not provided, and the patient isAfrican-Prydeinig, multiply by 1.212. If sex is not provided, and thepatient is female, multiply by 0.742. Results for patients <18 years ofage have not been validated by the MDRD study and should be interpretedwith caution.eGFR Result Interpretation:eGFR > or=60 is in the Normal RangeeGFR < 60 may mean kidney diseaseeGFR < 15 may mean kidney failureRanges recommended by the National Kidney Foundat ion,http://nkdep.nih.gov Basic Metabolic [id number] 07:12:00* Test Item Value Reference Range Comments Sodium (test code=NA) 137 mmol/L 135-145 Potassium (test code=K) 4.9 mmol/L 3.5-5.1 Chloride (test code=CL) 102 mmol/L 98-105 Carbon Dioxide (test code=CO2) 25 mmol/L 22-29 Glucose (test code=GLU) 76 mg/dL 70-115 Blood Urea Nitrogen (test code=BUN) 32 mg/dL 8-23 Creatinine (test code=CREAT) 1.7 mg/dL 0.7-1.2 Calcium (test code=CA) 8.1 mg/dL 8.3-10.5 BUN/Creatinine Ratio (test code=BCRATIO) 18.8 Anion Gap (test code=AGAP) 10 mmol/L 7-16 Estimated GFR (test code=GFR) 43 mL/min/1.73m2 eGFR (estimated Glomerular Filtration Rate) is an estimated value,calculated from the patient's serum creatinine using the MDRD equation.It is NOT the patient's actual GFR. The eGFR provides a more clinicallyuseful measure of kidney disease than serum creatinine alone.This calculation takes sex and race into account, if the informationis provided. If the race is not provided, and the patient isAfrican-Prydeinig, multiply by 1.212. If sex is not provided, and thepatient is female, multiply by 0.742. Results for patients <18 years ofage have not been validated by the MDRD study and should be interpretedwith caution.eGFR Result Interpretation:eGFR > or=60 is in the Normal RangeeGFR < 60 may mean kidney diseaseeGFR < 15 may mean kidney failureRanges recommended by the National Kidney Foundat ion,http://nkdep.nih.gov [id number] 07:12:00* Test Item Value Reference Range Comments Phosphorus (test code=PO4) 3.7 mg/dL 2.70-4.50 Magnesium, [id number] 07:12:00* Test Item Value Reference Range Comments Magnesium (test code=MG) 2.3 mg/dL 1.7-2.5 POC Glucose, [id number] 06:50:00* Test Item Value Reference Range Comments POC Glucose (test code=POCGLUC) 96 mg/dL 70-115 If you consider your patient critically ill, the [facility] Accu-Chek InformII metershould not be used for Glucose determinations.Draw a venous Glucose and send to the Main Lab for Analysis. CBC with [id number] 06:37:00* Test Item Value Reference Range Comments WBC (test code=WBC) 8.1 K/cumm 4.4-10.5 RBC (test code=RBC) 3.09 M/cumm 4.10-5.70 Hemoglobin (test code=HGB) 9.2 gm/dL 13.4-17.4 Hematocrit (test code=HCT) 28.3 % 38.7-52.0 MCV (test code=MCV) 91.5 fL 80-100 MCH (test code=MCH) 29.8 pg 27.0-32.5 MCHC (test code=MCHC) 32.5 g/dL 32.0-37.5 RDW (test code=RDW) 13.4 % 11.5-14.5 Platelet Count (test code=PLTCT) 308 K/cumm 140-440 MPV (test code=MPV) 6.7 fL Diff Method (test code=DIFFM) Auto Neutrophil (test code=NEUT) 56.8 % 36-70 Lymphocyte (test code=LYMPH) 22.3 % 12-44 Monocyte (test code=MONO) 8.4 % 0-11 Eosinophil (test code=EOS) 11.5 % 0-7 Basophil (test code=BASO) 1.0 % 0-2 Neutro Abs (test code=ANEUT) 4.6 K/cumm 1.6-7.4 Lymph Abs (test code=ALYMPH) 1.8 K/cumm 0.5-4.6 Coamo Abs (test code=AMONO) 0.7 K/cumm 0.0-1.2 Eos Abs (test code=AEOS) 0.93 K/cumm 0.00-0.74 Baso Abs (test code=ABASO) 0.1 K/cumm 0.00-0.21 POC Glucose, [id number] 20:54:00* Test Item Value Reference Range Comments POC Glucose (test code=POCGLUC) 156 mg/dL 70-115 Notify RN or MDIf you consider your patient critically ill, the [facility] Accu-Chek InformII metershould not be used for Glucose determinations.Draw a venous Glucose and send to the Main Lab for Analysis. US DUPLX LWR EXT ART/BPG, [id number] 17:44:09Right lower extremity arterial ultrasoundLocation R 16INDICATION: Rule out groin pseudoaneurysm.COMPARISON: 07/23/2017.TECHNIQUE: Vera scale and color-flow Doppl er images were obtained.FINDINGS: Triphasic flow with diffuse spectral broadenin g is present inthe common femoral, superficial femoral, popliteal, posterior tib ial,anterior tibial and posterior tibial arteries. Peak systolic velocity iselev ated in the mid superficial femoral artery at 213 cm/s, and isnormal elsewhere.A right common femoral artery stent has been placed. No evidence ofpseudoaneurysm formation.IMPRESSION:1. Right common femoral artery stent.2. No evidence of pse udoaneurysm formation.3. Excellent flow throughout the right lower extremity.4. Elevated peak systolic velocity in the mid right SFA at 213 cm/ssuggests presenc e of focal high-grade (greater than 50%) stenosis.POC Glucose, [id number] 16:27:00* Test Item Value Reference Range Comments POC Glucose (test code=POCGLUC) 144 mg/dL 70-115 If you consider your patient critically ill, the [facility] Accu-Chek InformII metershould not be used for Glucose determinations.Draw a venous Glucose and send to the Main Lab for Analysis. Culture, Wound [id number] 13:40:00Specimen: GroinCollected: 07/28/2017 04:45 Status: Final Last Updated: 07/31/2017 13:40 (1) left groin Gram Stain (Final) (Final) 07/28/17 Few Gram Positive Cocci In Pairs and clumps , Few WBC'S Culture Result (Final) (Final) 07/29/17 Normal jeff at 24 hours 2 Normal jeff at 48 hours POC Glucose, [id number] 12:10:00* Test Item Value Reference Range Comments POC Glucose (test code=POCGLUC) 160 mg/dL 70-115 If you consider your patient critically ill, the [facility] Accu-Chek InformII metershould not be used for Glucose determinations.Draw a venous Glucose and send to the Main Lab for Analysis. POC Glucose, [id number] 08:36:00* Test Item Value Reference Range Comments POC Glucose (test code=POCGLUC) 95 mg/dL 70-115 If you consider your patient critically ill, the [facility] Accu-Chek InformII metershould not be used for Glucose determinations.Draw a venous Glucose and send to the Main Lab for Analysis. Renal [id number] 07:34:00* Test Item Value Reference Range Comments Sodium (test code=NA) 136 mmol/L 135-145 Potassium (test code=K) 5.4 mmol/L 3.5-5.1 Chloride (test code=CL) 102 mmol/L 98-105 Carbon Dioxide (test code=CO2) 24 mmol/L 22-29 Glucose (test code=GLU) 80 mg/dL 70-115 Blood Urea Nitrogen (test code=BUN) 31 mg/dL 8-23 Creatinine (test code=CREAT) 1.7 mg/dL 0.7-1.2 Calcium (test code=CA) 8.0 mg/dL 8.3-10.5 Albumin (test code=ALB) 3.0 g/dL 3.5-5.2 Phosphorus (test code=PO4) 2.8 mg/dL 2.70-4.50 BUN/Creatinine Ratio (test code=BCRATIO) 18.2 Anion Gap (test code=AGAP) 10 mmol/L 7-16 Estimated GFR (test code=GFR) 43 mL/min/1.73m2 eGFR (estimated Glomerular Filtration Rate) is an estimated value,calculated from the patient's serum creatinine using the MDRD equation.It is NOT the patient's actual GFR. The eGFR provides a more clinicallyuseful measure of kidney disease than serum creatinine alone.This calculation takes sex and race into account, if the informationis provided. If the race is not provided, and the patient isAfrican-Prydeinig, multiply by 1.212. If sex is not provided, and thepatient is female, multiply by 0.742. Results for patients <18 years ofage have not been validated by the MDRD study and should be interpretedwith caution.eGFR Result Interpretation:eGFR > or=60 is in the Normal RangeeGFR < 60 may mean kidney diseaseeGFR < 15 may mean kidney failureRanges recommended by the National Kidney Foundat ion,http://nkdep.nih.gov CK [id number] 07:32:00* Test Item Value Reference Range Comments CK (test code=CK) 148 U/L 39-308 CBC with [id number] 07:05:00* Test Item Value Reference Range Comments WBC (test code=WBC) 8.3 K/cumm 4.4-10.5 RBC (test code=RBC) 2.84 M/cumm 4.10-5.70 Hemoglobin (test code=HGB) 8.6 gm/dL 13.4-17.4 Hematocrit (test code=HCT) 25.9 % 38.7-52.0 MCV (test code=MCV) 91.1 fL 80-100 MCH (test code=MCH) 30.2 pg 27.0-32.5 MCHC (test code=MCHC) 33.1 g/dL 32.0-37.5 RDW (test code=RDW) 13.6 % 11.5-14.5 Platelet Count (test code=PLTCT) 289 K/cumm 140-440 MPV (test code=MPV) 6.4 fL Diff Method (test code=DIFFM) Auto Neutrophil (test code=NEUT) 55.0 % 36-70 Lymphocyte (test code=LYMPH) 23.3 % 12-44 Monocyte (test code=MONO) 9.2 % 0-11 Eosinophil (test code=EOS) 11.8 % 0-7 Basophil (test code=BASO) 0.8 % 0-2 Neutro Abs (test code=ANEUT) 4.5 K/cumm 1.6-7.4 Lymph Abs (test code=ALYMPH) 1.9 K/cumm 0.5-4.6 Coamo Abs (test code=AMONO) 0.8 K/cumm 0.0-1.2 Eos Abs (test code=AEOS) 0.97 K/cumm 0.00-0.74 Baso Abs (test code=ABASO) 0.1 K/cumm 0.00-0.21 POC Glucose, [id number] 21:32:00* Test Item Value Reference Range Comments POC Glucose (test code=POCGLUC) 146 mg/dL 70-115 If you consider your patient critically ill, the [facility] Accu-Chek InformII metershould not be used for Glucose determinations.Draw a venous Glucose and send to the Main Lab for Analysis. POC Glucose, [id number] 17:09:00* Test Item Value Reference Range Comments POC Glucose (test code=POCGLUC) 179 mg/dL 70-115 If you consider your patient critically ill, the [facility] Accu-Chek InformII metershould not be used for Glucose determinations.Draw a venous Glucose and send to the Main Lab for Analysis. POC Glucose, [id number] 11:50:00* Test Item Value Reference Range Comments POC Glucose (test code=POCGLUC) 130 mg/dL 70-115 If you consider your patient critically ill, the [facility] Accu-Chek InformII metershould not be used for Glucose determinations.Draw a venous Glucose and send to the Main Lab for Analysis. POC Glucose, [id number] 07:30:00* Test Item Value Reference Range Comments POC Glucose (test code=POCGLUC) 87 mg/dL 70-115 Notify RN or MDIf you consider your patient critically ill, the [facility] Accu-Chek InformII metershould not be used for Glucose determinations.Draw a venous Glucose and send to the Main Lab for Analysis. CBC with [id number] 05:20:00* Test Item Value Reference Range Comments WBC (test code=WBC) 9.5 K/cumm 4.4-10.5 RBC (test code=RBC) 3.01 M/cumm 4.10-5.70 Hemoglobin (test code=HGB) 8.8 gm/dL 13.4-17.4 Hematocrit (test code=HCT) 25.9 % 38.7-52.0 MCV (test code=MCV) 85.9 fL 80-100 MCH (test code=MCH) 29.4 pg 27.0-32.5 MCHC (test code=MCHC) 34.2 g/dL 32.0-37.5 RDW (test code=RDW) 13.7 % 11.5-14.5 Platelet Count (test code=PLTCT) 276 K/cumm 140-440 MPV (test code=MPV) 8.9 fL Diff Method (test code=DIFFM) Auto Neutrophil (test code=NEUT) 56.3 % 36-70 Lymphocyte (test code=LYMPH) 22.0 % 12-44 Monocyte (test code=MONO) 7.5 % 0-11 Eosinophil (test code=EOS) 13.4 % 0-7 Basophil (test code=BASO) 0.7 % 0-2 Neutro Abs (test code=ANEUT) 5.3 K/cumm 1.6-7.4 Lymph Abs (test code=ALYMPH) 2.1 K/cumm 0.5-4.6 Coamo Abs (test code=AMONO) 0.7 K/cumm 0.0-1.2 Eos Abs (test code=AEOS) 1.27 K/cumm 0.00-0.74 Baso Abs (test code=ABASO) 0.1 K/cumm 0.00-0.21 POC Glucose, [id number] 21:16:00* Test Item Value Reference Range Comments POC Glucose (test code=POCGLUC) 174 mg/dL 70-115 If you consider your patient critically ill, the [facility] Accu-Chek InformII metershould not be used for Glucose determinations.Draw a venous Glucose and send to the Main Lab for Analysis. POC Glucose, [id number] 16:12:00* Test Item Value Reference Range Comments POC Glucose (test code=POCGLUC) 106 mg/dL 70-115 If you consider your patient critically ill, the [facility] Accu-Chek InformII metershould not be used for Glucose determinations.Draw a venous Glucose and send to the Main Lab for Analysis. POC Glucose, [id number] 11:11:00* Test Item Value Reference Range Comments POC Glucose (test code=POCGLUC) 163 mg/dL 70-115 If you consider your patient critically ill, the [facility] Accu-Chek InformII metershould not be used for Glucose determinations.Draw a venous Glucose and send to the Main Lab for Analysis. POC Glucose, [id number] 07:32:00* Test Item Value Reference Range Comments POC Glucose (test code=POCGLUC) 113 mg/dL 70-115 If you consider your patient critically ill, the [facility] Accu-Chek InformII metershould not be used for Glucose determinations.Draw a venous Glucose and send to the Main Lab for Analysis. Renal [id number] 06:51:00* Test Item Value Reference Range Comments Sodium (test code=NA) 136 mmol/L 135-145 Potassium (test code=K) 5.1 mmol/L 3.5-5.1 Chloride (test code=CL) 103 mmol/L 98-105 Carbon Dioxide (test code=CO2) 25 mmol/L 22-29 Glucose (test code=GLU) 105 mg/dL 70-115 Blood Urea Nitrogen (test code=BUN) 47 mg/dL 8-23 Creatinine (test code=CREAT) 2.6 mg/dL 0.7-1.2 Calcium (test code=CA) 8.0 mg/dL 8.3-10.5 Albumin (test code=ALB) 3.0 g/dL 3.5-5.2 Phosphorus (test code=PO4) 2.8 mg/dL 2.70-4.50 BUN/Creatinine Ratio (test code=BCRATIO) 18.1 Anion Gap (test code=AGAP) 8 mmol/L 7-16 Estimated GFR (test code=GFR) 26 mL/min/1.73m2 eGFR (estimated Glomerular Filtration Rate) is an estimated value,calculated from the patient's serum creatinine using the MDRD equation.It is NOT the patient's actual GFR. The eGFR provides a more clinicallyuseful measure of kidney disease than serum creatinine alone.This calculation takes sex and race into account, if the informationis provided. If the race is not provided, and the patient isAfrican-Prydeinig, multiply by 1.212. If sex is not provided, and thepatient is female, multiply by 0.742. Results for patients <18 years ofage have not been validated by the MDRD study and should be interpretedwith caution.eGFR Result Interpretation:eGFR > or=60 is in the Normal RangeeGFR < 60 may mean kidney diseaseeGFR < 15 may mean kidney failureRanges recommended by the National Kidney Foundat ion,http://nkdep.nih.gov CK [id number] 06:51:00* Test Item Value Reference Range Comments CK (test code=CK) 317 U/L 39-308 CBC with [id number] 06:50:00* Test Item Value Reference Range Comments WBC (test code=WBC) 8.9 K/cumm 4.4-10.5 RBC (test code=RBC) 3.10 M/cumm 4.10-5.70 Hemoglobin (test code=HGB) 9.0 gm/dL 13.4-17.4 Hematocrit (test code=HCT) 26.2 % 38.7-52.0 MCV (test code=MCV) 84.8 fL 80-100 MCH (test code=MCH) 29.2 pg 27.0-32.5 MCHC (test code=MCHC) 34.4 g/dL 32.0-37.5 RDW (test code=RDW) 14.0 % 11.5-14.5 Platelet Count (test code=PLTCT) 253 K/cumm 140-440 MPV (test code=MPV) 9.4 fL Diff Method (test code=DIFFM) Auto Neutrophil (test code=NEUT) 61.7 % 36-70 Lymphocyte (test code=LYMPH) 17.0 % 12-44 Monocyte (test code=MONO) 8.2 % 0-11 Eosinophil (test code=EOS) 12.5 % 0-7 Basophil (test code=BASO) 0.7 % 0-2 Neutro Abs (test code=ANEUT) 5.5 K/cumm 1.6-7.4 Lymph Abs (test code=ALYMPH) 1.5 K/cumm 0.5-4.6 Coamo Abs (test code=AMONO) 0.7 K/cumm 0.0-1.2 Eos Abs (test code=AEOS) 1.12 K/cumm 0.00-0.74 Baso Abs (test code=ABASO) 0.1 K/cumm 0.00-0.21 POC Glucose, [id number] 21:43:00* Test Item Value Reference Range Comments POC Glucose (test code=POCGLUC) 159 mg/dL 70-115 If you consider your patient critically ill, the [facility] Accu-Chek InformII metershould not be used for Glucose determinations.Draw a venous Glucose and send to the Main Lab for Analysis. POC Glucose, [id number] 16:31:00* Test Item Value Reference Range Comments POC Glucose (test code=POCGLUC) 98 mg/dL 70-115 If you consider your patient critically ill, the [facility] Accu-Chek InformII metershould not be used for Glucose determinations.Draw a venous Glucose and send to the Main Lab for Analysis. POC Glucose, [id number] 11:22:00* Test Item Value Reference Range Comments POC Glucose (test code=POCGLUC) 124 mg/dL 70-115 If you consider your patient critically ill, the [facility] Accu-Chek InformII metershould not be used for Glucose determinations.Draw a venous Glucose and send to the Main Lab for Analysis. Magnesium, [id number] 08:10:00* Test Item Value Reference Range Comments Magnesium (test code=MG) 2.4 mg/dL 1.7-2.5 POC Glucose, [id number] 05:30:00* Test Item Value Reference Range Comments POC Glucose (test code=POCGLUC) 155 mg/dL 70-115 If you consider your patient critically ill, the [facility] Accu-Chek InformII metershould not be used for Glucose determinations.Draw a venous Glucose and send to the Main Lab for Analysis. POC Glucose, [id number] 04:52:00* Test Item Value Reference Range Comments POC Glucose (test code=POCGLUC) 70 mg/dL 70-115 If you consider your patient critically ill, the [facility] Accu-Chek InformII metershould not be used for Glucose determinations.Draw a venous Glucose and send to the Main Lab for Analysis. Renal [id number] 04:31:00* Test Item Value Reference Range Comments Sodium (test code=NA) 136 mmol/L 135-145 Potassium (test code=K) 4.4 mmol/L 3.5-5.1 Chloride (test code=CL) 100 mmol/L 98-105 Carbon Dioxide (test code=CO2) 22 mmol/L 22-29 Glucose (test code=GLU) 61 mg/dL 70-115 Blood Urea Nitrogen (test code=BUN) 64 mg/dL 8-23 Creatinine (test code=CREAT) 4.3 mg/dL 0.7-1.2 Calcium (test code=CA) 7.8 mg/dL 8.3-10.5 Albumin (test code=ALB) 3.2 g/dL 3.5-5.2 Phosphorus (test code=PO4) 4.3 mg/dL 2.70-4.50 BUN/Creatinine Ratio (test code=BCRATIO) 14.9 Anion Gap (test code=AGAP) 14 mmol/L 7-16 Estimated GFR (test code=GFR) 15 mL/min/1.73m2 eGFR (estimated Glomerular Filtration Rate) is an estimated value,calculated from the patient's serum creatinine using the MDRD equation.It is NOT the patient's actual GFR. The eGFR provides a more clinicallyuseful measure of kidney disease than serum creatinine alone.This calculation takes sex and race into account, if the informationis provided. If the race is not provided, and the patient isAfrican-Prydeinig, multiply by 1.212. If sex is not provided, and thepatient is female, multiply by 0.742. Results for patients <18 years ofage have not been validated by the MDRD study and should be interpretedwith caution.eGFR Result Interpretation:eGFR > or=60 is in the Normal RangeeGFR < 60 may mean kidney diseaseeGFR < 15 may mean kidney failureRanges recommended by the National Kidney Foundat ion,http://nkdep.nih.gov [id number] 04:31:00* Test Item Value Reference Range Comments NT ProBnp (test code=PBNP) 87899 pg/mL 0-124 CBC with [id number] 04:12:00* Test Item Value Reference Range Comments WBC (test code=WBC) 10.8 K/cumm 4.4-10.5 RBC (test code=RBC) 3.40 M/cumm 4.10-5.70 Hemoglobin (test code=HGB) 9.7 gm/dL 13.4-17.4 Hematocrit (test code=HCT) 28.9 % 38.7-52.0 MCV (test code=MCV) 85.0 fL 80-100 MCH (test code=MCH) 28.6 pg 27.0-32.5 MCHC (test code=MCHC) 33.7 g/dL 32.0-37.5 RDW (test code=RDW) 14.2 % 11.5-14.5 Platelet Count (test code=PLTCT) 229 K/cumm 140-440 MPV (test code=MPV) 9.2 fL Diff Method (test code=DIFFM) Auto Neutrophil (test code=NEUT) 66.9 % 36-70 Lymphocyte (test code=LYMPH) 17.2 % 12-44 Monocyte (test code=MONO) 6.8 % 0-11 Eosinophil (test code=EOS) 8.3 % 0-7 Basophil (test code=BASO) 0.6 % 0-2 Neutro Abs (test code=ANEUT) 7.2 K/cumm 1.6-7.4 Lymph Abs (test code=ALYMPH) 1.9 K/cumm 0.5-4.6 Coamo Abs (test code=AMONO) 0.7 K/cumm 0.0-1.2 Eos Abs (test code=AEOS) 0.90 K/cumm 0.00-0.74 Baso Abs (test code=ABASO) 0.1 K/cumm 0.00-0.21 POC Glucose, [id number] 21:30:00* Test Item Value Reference Range Comments POC Glucose (test code=POCGLUC) 162 mg/dL 70-115 If you consider your patient critically ill, the [facility] Accu-Chek InformII metershould not be used for Glucose determinations.Draw a venous Glucose and send to the Main Lab for Analysis. POC Glucose, [id number] 17:27:00* Test Item Value Reference Range Comments POC Glucose (test code=POCGLUC) 230 mg/dL 70-115 If you consider your patient critically ill, the [facility] Accu-Chek InformII metershould not be used for Glucose determinations.Draw a venous Glucose and send to the Main Lab for Analysis. POC Glucose, [id number] 14:00:00* Test Item Value Reference Range Comments POC Glucose (test code=POCGLUC) 156 mg/dL 70-115 If you consider your patient critically ill, the [facility] Accu-Chek InformII metershould not be used for Glucose determinations.Draw a venous Glucose and send to the Main Lab for Analysis. POC Glucose, [id number] 09:33:00* Test Item Value Reference Range Comments POC Glucose (test code=POCGLUC) 106 mg/dL 70-115 If you consider your patient critically ill, the [facility] Accu-Chek InformII metershould not be used for Glucose determinations.Draw a venous Glucose and send to the Main Lab for Analysis. RBC, Crossmatch 06:00:00* Test Item Value Reference Range Comments Product 1 Code (test code=PRODCODE1) E4543 Unit 1 ID (test code=UNITID1) [id number] Unit 1 ABO (test code=UNITABO1) A Unit 1 Rh (test code=UNITRH1) POS Unit 1 Interp (test code=UNITINTERP1) Compatible Unit 1 Status (test code=UNITSTAT1) PT Product 2 Code (test code=PRODCODE2) E0336 Unit 2 ID (test code=UNITID2) [id number] Unit 2 ABO (test code=UNITABO2) A Unit 2 Rh (test code=UNITRH2) POS Unit 2 Interp (test code=UNITINTERP2) Compatible Unit 2 Status (test code=UNITSTAT2) RE RBC, Crossmatch 06:00:00* Test Item Value Reference Range Comments Product 1 Code (test code=PRODCODE1) E4533 Unit 1 ID (test code=UNITID1) [id number] Unit 1 ABO (test code=UNITABO1) A Unit 1 Rh (test code=UNITRH1) POS Unit 1 Interp (test code=UNITINTERP1) Compatible Unit 1 Status (test code=UNITSTAT1) PT Product 2 Code (test code=PRODCODE2) E4533 Unit 2 ID (test code=UNITID2) [id number] Unit 2 ABO (test code=UNITABO2) A Unit 2 Rh (test code=UNITRH2) POS Unit 2 Interp (test code=UNITINTERP2) Compatible Unit 2 Status (test code=UNITSTAT2) PT Thyroid Stimulating Hormone (TSH)2017-07-27 05:03:00* Test Item Value Reference Range Comments TSH (test code=TSH) 1.47 mIU/mL 0.270-4.200 Renal [id number] 04:32:00* Test Item Value Reference Range Comments Sodium (test code=NA) 135 mmol/L 135-145 Potassium (test code=K) 5.1 mmol/L 3.5-5.1 Chloride (test code=CL) 98 mmol/L 98-105 Carbon Dioxide (test code=CO2) 23 mmol/L 22-29 Glucose (test code=GLU) 85 mg/dL 70-115 Blood Urea Nitrogen (test code=BUN) 86 mg/dL 8-23 Creatinine (test code=CREAT) 6.5 mg/dL 0.7-1.2 Calcium (test code=CA) 7.3 mg/dL 8.3-10.5 Albumin (test code=ALB) 2.9 g/dL 3.5-5.2 Phosphorus (test code=PO4) 6.8 mg/dL 2.70-4.50 BUN/Creatinine Ratio (test code=BCRATIO) 13.2 Anion Gap (test code=AGAP) 14 mmol/L 7-16 Estimated GFR (test code=GFR) 9 mL/min/1.73m2 eGFR (estimated Glomerular Filtration Rate) is an estimated value,calculated from the patient's serum creatinine using the MDRD equation.It is NOT the patient's actual GFR. The eGFR provides a more clinicallyuseful measure of kidney disease than serum creatinine alone.This calculation takes sex and race into account, if the informationis provided. If the race is not provided, and the patient isAfrican-Prydeinig, multiply by 1.212. If sex is not provided, and thepatient is female, multiply by 0.742. Results for patients <18 years ofage have not been validated by the MDRD study and should be interpretedwith caution.eGFR Result Interpretation:eGFR > or=60 is in the Normal RangeeGFR < 60 may mean kidney diseaseeGFR < 15 may mean kidney failureRanges recommended by the National Kidney Foundat ion,http://nkdep.nih.gov CBC with [id number] 04:11:00* Test Item Value Reference Range Comments WBC (test code=WBC) 10.6 K/cumm 4.4-10.5 RBC (test code=RBC) 3.08 M/cumm 4.10-5.70 Hemoglobin (test code=HGB) 9.1 gm/dL 13.4-17.4 Hematocrit (test code=HCT) 27.0 % 38.7-52.0 MCV (test code=MCV) 87.7 fL 80-100 MCH (test code=MCH) 29.7 pg 27.0-32.5 MCHC (test code=MCHC) 33.9 g/dL 32.0-37.5 RDW (test code=RDW) 14.4 % 11.5-14.5 Platelet Count (test code=PLTCT) 184 K/cumm 140-440 MPV (test code=MPV) 7.0 fL Diff Method (test code=DIFFM) Auto Neutrophil (test code=NEUT) 69.3 % 36-70 Lymphocyte (test code=LYMPH) 16.0 % 12-44 Monocyte (test code=MONO) 6.5 % 0-11 Eosinophil (test code=EOS) 7.6 % 0-7 Basophil (test code=BASO) 0.6 % 0-2 Neutro Abs (test code=ANEUT) 7.4 K/cumm 1.6-7.4 Lymph Abs (test code=ALYMPH) 1.7 K/cumm 0.5-4.6 Coamo Abs (test code=AMONO) 0.7 K/cumm 0.0-1.2 Eos Abs (test code=AEOS) 0.81 K/cumm 0.00-0.74 Baso Abs (test code=ABASO) 0.1 K/cumm 0.00-0.21 POC Glucose, [id number] 22:18:00* Test Item Value Reference Range Comments POC Glucose (test code=POCGLUC) 119 mg/dL 70-115 If you consider your patient critically ill, the [facility] Accu-Chek InformII metershould not be used for Glucose determinations.Draw a venous Glucose and send to the Main Lab for Analysis. POC Glucose, [id number] 17:42:00* Test Item Value Reference Range Comments POC Glucose (test code=POCGLUC) 229 mg/dL 70-115 If you consider your patient critically ill, the [facility] Accu-Chek InformII metershould not be used for Glucose determinations.Draw a venous Glucose and send to the Main Lab for Analysis. POC Glucose, [id number] 13:55:00* Test Item Value Reference Range Comments POC Glucose (test code=POCGLUC) 143 mg/dL 70-115 If you consider your patient critically ill, the [facility] Accu-Chek InformII metershould not be used for Glucose determinations.Draw a venous Glucose and send to the Main Lab for Analysis. POC Glucose, [id number] 09:51:00* Test Item Value Reference Range Comments POC Glucose (test code=POCGLUC) 104 mg/dL 70-115 If you consider your patient critically ill, the [facility] Accu-Chek InformII metershould not be used for Glucose determinations.Draw a venous Glucose and send to the Main Lab for Analysis. Microalb/Creat Ratio, Randm [id number] 07:42:00* Test Item Value Reference Range Comments Creatinine, Urine Rm (test code=CREURRM) 76.2 mg/dL 10.0-300.0 Microalbumin, Urine (test code=MAUR) 813 mg/L 0-23 Microalb/Creat Ratio (test code=MACRRUR) 1067 mg/G 0-20 Urinalysis [id number] 07:29:00* Test Item Value Reference Range Comments Color (test code=COLOR) Yellow Yellow,Straw,Pl yellow Clarity (test code=CLAR) Clear Clear Specific Hollis (test code=SPGR) 1.027 1.001-1.035 pH (test code=PH) 5.0 5.0-9.0 Ketone (test code=KET) Negative mg/dL Negative Glucose (test code=GLUCUR) 100 mg/dL Negative Protein (test code=PROT) 150 mg/dL Negative Bilirubin (test code=BILI) Negative mg/dL Negative Occult Blood (test code=UDOB) Small Negative Urobilinogen (test code=UROB) 0.2 mg/dL 0.2-1.0 Nitrite (test code=NIT) Negative Negative Leuk Esterase (test code=LEUK) Negative Negative Micros Exam (test code=MEXAM) Indicated Epithelial Cells (test code=EPI) Few /LPF 0-30 WBC, Urine (test code=UWBC) 0-5 /HPF 0-5 RBC, Urine (test code=URBC) 3-5 /HPF 0-5 Bacteria (test code=BACT) Few /HPF US [id number] 07:12:57RENAL ULTRASOUNDCLINICAL HISTORY: Acute kidney injuryCOMMENTS: Grayscale and color Doppler ultrasound the kidneys wasperformed.Both kidneys show increased cortical echogenicity compatible withunderlying medical renal disease. A simple cyst in the mid right kidneymeasures 1.4 cm. A simple cyst in the mid left kidney measures 0.9 cm. No hydronephrosis or nephrolithiasis is seen.The right kidney measures 11.9 x 4.9 x 5.2 cm. The left kidney tuxritav43.6 x 6.2 x 5.2 cm.The urinary bladder wall appears mildly thickened. Bladder volume is240 mL.There is trace free fluid in the right upper quadrant/subhepatic recess. IMPRESSION: 1. Medical renal disease.2. No hydronephrosis.3. Trace fluid in the right upper max drant.Location: [facility] with [id number] 04:07:00* Test Item Value Reference Range Comments WBC (test code=WBC) 10.0 K/cumm 4.4-10.5 RBC (test code=RBC) 2.50 M/cumm 4.10-5.70 Hemoglobin (test code=HGB) 7.6 gm/dL 13.4-17.4 Hematocrit (test code=HCT) 22.6 % 38.7-52.0 MCV (test code=MCV) 90.6 fL 80-100 MCH (test code=MCH) 30.2 pg 27.0-32.5 MCHC (test code=MCHC) 33.4 g/dL 32.0-37.5 RDW (test code=RDW) 14.2 % 11.5-14.5 Platelet Count (test code=PLTCT) 178 K/cumm 140-440 MPV (test code=MPV) 7.0 fL Diff Method (test code=DIFFM) Auto Neutrophil (test code=NEUT) 65.6 % 36-70 Lymphocyte (test code=LYMPH) 18.4 % 12-44 Monocyte (test code=MONO) 9.8 % 0-11 Eosinophil (test code=EOS) 5.5 % 0-7 Basophil (test code=BASO) 0.6 % 0-2 Neutro Abs (test code=ANEUT) 6.6 K/cumm 1.6-7.4 Lymph Abs (test code=ALYMPH) 1.8 K/cumm 0.5-4.6 Coamo Abs (test code=AMONO) 1.0 K/cumm 0.0-1.2 Eos Abs (test code=AEOS) 0.55 K/cumm 0.00-0.74 Baso Abs (test code=ABASO) 0.1 K/cumm 0.00-0.21 Renal [id number] 03:56:00* Test Item Value Reference Range Comments Sodium (test code=NA) 130 mmol/L 135-145 Potassium (test code=K) 5.3 mmol/L 3.5-5.1 Chloride (test code=CL) 93 mmol/L 98-105 Carbon Dioxide (test code=CO2) 23 mmol/L 22-29 Glucose (test code=GLU) 89 mg/dL 70-115 Blood Urea Nitrogen (test code=BUN) 84 mg/dL 8-23 Creatinine (test code=CREAT) 6.4 mg/dL 0.7-1.2 Calcium (test code=CA) 7.3 mg/dL 8.3-10.5 Albumin (test code=ALB) 2.9 g/dL 3.5-5.2 Phosphorus (test code=PO4) 7.6 mg/dL 2.70-4.50 BUN/Creatinine Ratio (test code=BCRATIO) 13.1 Anion Gap (test code=AGAP) 14 mmol/L 7-16 Estimated GFR (test code=GFR) 9 mL/min/1.73m2 eGFR (estimated Glomerular Filtration Rate) is an estimated value,calculated from the patient's serum creatinine using the MDRD equation.It is NOT the patient's actual GFR. The eGFR provides a more clinicallyuseful measure of kidney disease than serum creatinine alone.This calculation takes sex and race into account, if the informationis provided. If the race is not provided, and the patient isAfrican-P[place]dein[place], multiply by 1.212. If sex is not provided, and thepatient is female, multiply by 0.742. Results for patients <18 years ofage have not been validated by the MDRD study and should be interpretedwith caution.eGFR Result Interpretation:eGFR > or=60 is in the Normal RangeeGFR < 60 may mean kidney diseaseeGFR < 15 may mean kidney failureRanges recommended by the National Kidney Foundat ion,http://nkdep.nih.gov POC Glucose, [id number] 21:30:00* Test Item Value Reference Range Comments POC Glucose (test code=POCGLUC) 197 mg/dL 70-115 If you consider your patient critically ill, the [facility] Accu-Chek InformII metershould not be used for Glucose determinations.Draw a venous Glucose and send to the Main Lab for Analysis. PTH, [id number] 18:18:00* Test Item Value Reference Range Comments Parathyroid Hormone, Intact (test code=PTH INTACT) 146.80 pg/mL 15.00-65.00 CK [id number] 18:15:00* Test Item Value Reference Range Comments CK (test code=CK) 882 U/L 39-308 [id number]-[id number] 18:15:00* Test Item Value Reference Range Comments NT ProBnp (test code=PBNP) 8659 pg/mL 0-124 POC Glucose, [id number] 18:14:00* Test Item Value Reference Range Comments POC Glucose (test code=POCGLUC) 77 mg/dL 70-115 If you consider your patient critically ill, the [facility] Accu-Chek InformII metershould not be used for Glucose determinations.Draw a venous Glucose and send to the Main Lab for Analysis. POC Glucose, [id number] 11:46:00* Test Item Value Reference Range Comments POC Glucose (test code=POCGLUC) 176 mg/dL 70-115 If you consider your patient critically ill, the [facility] Accu-Chek InformII metershould not be used for Glucose determinations.Draw a venous Glucose and send to the Main Lab for Analysis. POC Glucose, [id number] 08:06:00* Test Item Value Reference Range Comments POC Glucose (test code=POCGLUC) 108 mg/dL 70-115 If you consider your patient critically ill, the [facility] Accu-Chek InformII metershould not be used for Glucose determinations.Draw a venous Glucose and send to the Main Lab for Analysis. Magnesium, [id number] 04:56:00* Test Item Value Reference Range Comments Magnesium (test code=MG) 2.3 mg/dL 1.7-2.5 [id number] 04:56:00* Test Item Value Reference Range Comments Phosphorus (test code=PO4) 7.6 mg/dL 2.70-4.50 CBC with Ddnvluuoezzo5732-02-30 04:36:00* Test Item Value Reference Range Comments WBC (test code=WBC) 12.0 K/cumm 4.4-10.5 RBC (test code=RBC) 3.14 M/cumm 4.10-5.70 Hemoglobin (test code=HGB) 9.2 gm/dL 13.4-17.4 Hematocrit (test code=HCT) 26.7 % 38.7-52.0 MCV (test code=MCV) 85.0 fL 80-100 MCH (test code=MCH) 29.2 pg 27.0-32.5 MCHC (test code=MCHC) 34.4 g/dL 32.0-37.5 RDW (test code=RDW) 14.6 % 11.5-14.5 Platelet Count (test code=PLTCT) 212 K/cumm 140-440 MPV (test code=MPV) 9.0 fL Diff Method (test code=DIFFM) Auto Neutrophil (test code=NEUT) 71.8 % 36-70 Lymphocyte (test code=LYMPH) 16.3 % 12-44 Monocyte (test code=MONO) 7.9 % 0-11 Eosinophil (test code=EOS) 3.3 % 0-7 Basophil (test code=BASO) 0.7 % 0-2 Neutro Abs (test code=ANEUT) 8.6 K/cumm 1.6-7.4 Lymph Abs (test code=ALYMPH) 2.0 K/cumm 0.5-4.6 Coamo Abs (test code=AMONO) 1.0 K/cumm 0.0-1.2 Eos Abs (test code=AEOS) 0.40 K/cumm 0.00-0.74 Baso Abs (test code=ABASO) 0.1 K/cumm 0.00-0.21 Basic Metabolic [id number] 04:34:00* Test Item Value Reference Range Comments Sodium (test code=NA) 133 mmol/L 135-145 Potassium (test code=K) 5.3 mmol/L 3.5-5.1 Chloride (test code=CL) 93 mmol/L 98-105 Carbon Dioxide (test code=CO2) 27 mmol/L 22-29 Glucose (test code=GLU) 89 mg/dL 70-115 Blood Urea Nitrogen (test code=BUN) 73 mg/dL 8-23 Creatinine (test code=CREAT) 4.7 mg/dL 0.7-1.2 Calcium (test code=CA) 7.9 mg/dL 8.3-10.5 BUN/Creatinine Ratio (test code=BCRATIO) 15.5 Anion Gap (test code=AGAP) 13 mmol/L 7-16 Estimated GFR (test code=GFR) 13 mL/min/1.73m2 eGFR (estimated Glomerular Filtration Rate) is an estimated value,calculated from the patient's serum creatinine using the MDRD equation.It is NOT the patient's actual GFR. The eGFR provides a more clinicallyuseful measure of kidney disease than serum creatinine alone.This calculation takes sex and race into account, if the informationis provided. If the race is not provided, and the patient isAfrican-Prydeinig, multiply by 1.212. If sex is not provided, and thepatient is female, multiply by 0.742. Results for patients <18 years ofage have not been validated by the MDRD study and should be interpretedwith caution.eGFR Result Interpretation:eGFR > or=60 is in the Normal RangeeGFR < 60 may mean kidney diseaseeGFR < 15 may mean kidney failureRanges recommended by the National Kidney Foundat ion,http://nkdep.nih.gov POC Glucose, [id number] 20:43:00* Test Item Value Reference Range Comments POC Glucose (test code=POCGLUC) 196 mg/dL 70-115 If you consider your patient critically ill, the [facility] Accu-Chek InformII metershould not be used for Glucose determinations.Draw a venous Glucose and send to the Main Lab for Analysis. Prothrombin [id number] 19:28:00* Test Item Value Reference Range Comments PT (test code=PT) 13.20 seconds 9.78-13.35 INR (test code=INR) 1.16 Ratio 0.6-1.2 Prothrombin [id number] 17:33:00* Test Item Value Reference Range Comments PT (test code=PT) 12.80 seconds 9.78-13.35 INR (test code=INR) 1.12 Ratio 0.6-1.2 CBC with [id number] 17:33:00* Test Item Value Reference Range Comments WBC (test code=WBC) 12.6 K/cumm 4.4-10.5 RBC (test code=RBC) 3.29 M/cumm 4.10-5.70 Hemoglobin (test code=HGB) 9.9 gm/dL 13.4-17.4 Hematocrit (test code=HCT) 30.3 % 38.7-52.0 MCV (test code=MCV) 92.1 fL 80-100 MCH (test code=MCH) 29.9 pg 27.0-32.5 MCHC (test code=MCHC) 32.5 g/dL 32.0-37.5 RDW (test code=RDW) 14.1 % 11.5-14.5 Platelet Count (test code=PLTCT) 211 K/cumm 140-440 MPV (test code=MPV) 7.4 fL Diff Method (test code=DIFFM) Auto Neutrophil (test code=NEUT) 79.1 % 36-70 Lymphocyte (test code=LYMPH) 14.0 % 12-44 Monocyte (test code=MONO) 6.1 % 0-11 Eosinophil (test code=EOS) 0.2 % 0-7 Basophil (test code=BASO) 0.5 % 0-2 Neutro Abs (test code=ANEUT) 10.0 K/cumm 1.6-7.4 Lymph Abs (test code=ALYMPH) 1.8 K/cumm 0.5-4.6 Coamo Abs (test code=AMONO) 0.8 K/cumm 0.0-1.2 Eos Abs (test code=AEOS) 0.02 K/cumm 0.00-0.74 Baso Abs (test code=ABASO) 0.1 K/cumm 0.00-0.21 POC Glucose, [id number] 17:19:00* Test Item Value Reference Range Comments POC Glucose (test code=POCGLUC) 178 mg/dL 70-115 If you consider your patient critically ill, the [facility] Accu-Chek InformII metershould not be used for Glucose determinations.Draw a venous Glucose and send to the Main Lab for Analysis. XR CHEST 1 [id number] 16:42:07XR CHEST 1 VIEWLOCATION: [id number]: chest radiograph 07/20/2017 at 1358INDICATION: picc line placementDISCUSSION:A single portable chest radiograph was submitted for interpretation.Lines/tubes: Right PICC line terminates over the low SVC.There is mild central pulmonary vascular congestion with mild bibasilaropacity.No pneumothorax is seen.The cardiac silhouette is prominent, but stable. Mild aortic calcifications are present. Osseous structures are stable.IMPRESSION:1. Right PICC line terminates over the low SVC.2. No evidence for pneumothorax. 3. Mild central pulmonary vascular congestion with mild bibasilaropacity.POC Glucose, [id number] 12:31:00* Test Item Value Reference Range Comments POC Glucose (test code=POCGLUC) 182 mg/dL 70-115 Notify RN or MDIf you consider your patient critically ill, the [facility] Accu-Chek InformII metershould not be used for Glucose determinations.Draw a venous Glucose and send to the Main Lab for Analysis. Prothrombin [id number] 09:32:00* Test Item Value Reference Range Comments PT (test code=PT) 13.20 seconds 9.78-13.35 INR (test code=INR) 1.17 Ratio 0.6-1.2 CBC with [id number] 09:13:00* Test Item Value Reference Range Comments WBC (test code=WBC) 8.9 K/cumm 4.4-10.5 RBC (test code=RBC) 2.92 M/cumm 4.10-5.70 Hemoglobin (test code=HGB) 8.7 gm/dL 13.4-17.4 Hematocrit (test code=HCT) 25.3 % 38.7-52.0 MCV (test code=MCV) 86.6 fL 80-100 MCH (test code=MCH) 29.8 pg 27.0-32.5 MCHC (test code=MCHC) 34.4 g/dL 32.0-37.5 RDW (test code=RDW) 14.3 % 11.5-14.5 Platelet Count (test code=PLTCT) 254 K/cumm 140-440 MPV (test code=MPV) 9.2 fL Diff Method (test code=DIFFM) Auto Neutrophil (test code=NEUT) 71.4 % 36-70 Lymphocyte (test code=LYMPH) 19.9 % 12-44 Monocyte (test code=MONO) 7.7 % 0-11 Eosinophil (test code=EOS) 0.2 % 0-7 Basophil (test code=BASO) 0.8 % 0-2 Neutro Abs (test code=ANEUT) 6.4 K/cumm 1.6-7.4 Lymph Abs (test code=ALYMPH) 1.8 K/cumm 0.5-4.6 Coamo Abs (test code=AMONO) 0.7 K/cumm 0.0-1.2 Eos Abs (test code=AEOS) 0.02 K/cumm 0.00-0.74 Baso Abs (test code=ABASO) 0.1 K/cumm 0.00-0.21 Basic Metabolic [id number] 04:34:00* Test Item Value Reference Range Comments Sodium (test code=NA) 135 mmol/L 135-145 Potassium (test code=K) 4.9 mmol/L 3.5-5.1 Chloride (test code=CL) 96 mmol/L 98-105 Carbon Dioxide (test code=CO2) 27 mmol/L 22-29 Glucose (test code=GLU) 162 mg/dL 70-115 Blood Urea Nitrogen (test code=BUN) 55 mg/dL 8-23 Creatinine (test code=CREAT) 2.8 mg/dL 0.7-1.2 Calcium (test code=CA) 7.5 mg/dL 8.3-10.5 BUN/Creatinine Ratio (test code=BCRATIO) 19.6 Anion Gap (test code=AGAP) 12 mmol/L 7-16 Estimated GFR (test code=GFR) 24 mL/min/1.73m2 eGFR (estimated Glomerular Filtration Rate) is an estimated value,calculated from the patient's serum creatinine using the MDRD equation.It is NOT the patient's actual GFR. The eGFR provides a more clinicallyuseful measure of kidney disease than serum creatinine alone.This calculation takes sex and race into account, if the informationis provided. If the race is not provided, and the patient isAfrican-Prydeinig, multiply by 1.212. If sex is not provided, and thepatient is female, multiply by 0.742. Results for patients <18 years ofage have not been validated by the MDRD study and should be interpretedwith caution.eGFR Result Interpretation:eGFR > or=60 is in the Normal RangeeGFR < 60 may mean kidney diseaseeGFR < 15 may mean kidney failureRanges recommended by the National Kidney Foundat ion,http://nkdep.nih.gov CBC with [id number] 04:04:00* Test Item Value Reference Range Comments WBC (test code=WBC) 9.3 K/cumm 4.4-10.5 RBC (test code=RBC) 3.04 M/cumm 4.10-5.70 Hemoglobin (test code=HGB) 9.0 gm/dL 13.4-17.4 Hematocrit (test code=HCT) 26.2 % 38.7-52.0 MCV (test code=MCV) 86.1 fL 80-100 MCH (test code=MCH) 29.8 pg 27.0-32.5 MCHC (test code=MCHC) 34.6 g/dL 32.0-37.5 RDW (test code=RDW) 14.2 % 11.5-14.5 Platelet Count (test code=PLTCT) 259 K/cumm 140-440 MPV (test code=MPV) 9.3 fL Diff Method (test code=DIFFM) Auto Neutrophil (test code=NEUT) 78.7 % 36-70 Lymphocyte (test code=LYMPH) 13.6 % 12-44 Monocyte (test code=MONO) 7.1 % 0-11 Eosinophil (test code=EOS) 0.2 % 0-7 Basophil (test code=BASO) 0.4 % 0-2 Neutro Abs (test code=ANEUT) 7.3 K/cumm 1.6-7.4 Lymph Abs (test code=ALYMPH) 1.3 K/cumm 0.5-4.6 Coamo Abs (test code=AMONO) 0.7 K/cumm 0.0-1.2 Eos Abs (test code=AEOS) 0.02 K/cumm 0.00-0.74 Baso Abs (test code=ABASO) 0.0 K/cumm 0.00-0.21 Prothrombin [id number] 03:15:00* Test Item Value Reference Range Comments PT (test code=PT) 13.10 seconds 9.78-13.35 INR (test code=INR) 1.16 Ratio 0.6-1.2 Prothrombin [id number] 22:41:00* Test Item Value Reference Range Comments PT (test code=PT) 13.30 seconds 9.78-13.35 INR (test code=INR) 1.18 Ratio 0.6-1.2 [id number] 22:10:00* Test Item Value Reference Range Comments WBC (test code=WBC) 9.7 K/cumm 4.4-10.5 RBC (test code=RBC) 3.56 M/cumm 4.10-5.70 Hemoglobin (test code=HGB) 10.4 gm/dL 13.4-17.4 Hematocrit (test code=HCT) 30.9 % 38.7-52.0 MCV (test code=MCV) 86.9 fL 80-100 MCH (test code=MCH) 29.2 pg 27.0-32.5 MCHC (test code=MCHC) 33.6 g/dL 32.0-37.5 RDW (test code=RDW) 14.3 % 11.5-14.5 Platelet Count (test code=PLTCT) 275 K/cumm 140-440 MPV (test code=MPV) 9.0 fL POC Glucose, [id number] 21:58:00* Test Item Value Reference Range Comments POC Glucose (test code=POCGLUC) 194 mg/dL 70-115 If you consider your patient critically ill, the [facility] Accu-Chek InformII metershould not be used for Glucose determinations.Draw a venous Glucose and send to the Main Lab for Analysis. POC Glucose, [id number] 17:49:00* Test Item Value Reference Range Comments POC Glucose (test code=POCGLUC) 154 mg/dL 70-115 Notify RN or MDIf you consider your patient critically ill, the [facility] Accu-Chek InformII metershould not be used for Glucose determinations.Draw a venous Glucose and send to the Main Lab for Analysis. Antibody Screen - [id number] 16:37:00* Test Item Value Reference Range Comments Antibody Screen (test code=ABSCR) Negative Blood Type and [id number] 16:21:00* Test Item Value Reference Range Comments ABO type (test code=ABO) A Rh Type (test code=RH) Positive US DUPLX LWR EXT ART/BPG, UNI/KMP-[id number] 13:11:14RIGHT LOWER EXTREMITY ARTERIAL DOPPLER:CLINICAL HISTORY: Cold leg, arterial occlusionTECHNIQUE: Vera scale, color, and duplex spectral waveform analysissonography of the arteries of the right lower extremities was performed.FINDINGS: The right common femoral, superficial femoral, popliteal, andinfrapopliteal arteries are occluded. 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 [id number] 06:05:00* Test Item Value Reference Range Comments Phosphorus (test code=PO4) 5.4 mg/dL 2.70-4.50 Magnesium, [id number] 06:05:00* Test Item Value Reference Range Comments Magnesium (test code=MG) 2.0 mg/dL 1.7-2.5 Basic Metabolic [id number] 06:05:00* Test Item Value Reference Range Comments Sodium (test code=NA) 137 mmol/L 135-145 Potassium (test code=K) 4.5 mmol/L 3.5-5.1 Chloride (test code=CL) 96 mmol/L 98-105 Carbon Dioxide (test code=CO2) 32 mmol/L 22-29 Glucose (test code=GLU) 118 mg/dL 70-115 Blood Urea Nitrogen (test code=BUN) 51 mg/dL 8-23 Creatinine (test code=CREAT) 2.0 mg/dL 0.7-1.2 Calcium (test code=CA) 8.7 mg/dL 8.3-10.5 BUN/Creatinine Ratio (test code=BCRATIO) 25.5 Anion Gap (test code=AGAP) 9 mmol/L 7-16 Estimated GFR (test code=GFR) 35 mL/min/1.73m2 eGFR (estimated Glomerular Filtration Rate) is an estimated value,calculated from the patient's serum creatinine using the MDRD equation.It is NOT the patient's actual GFR. The eGFR provides a more clinicallyuseful measure of kidney disease than serum creatinine alone.This calculation takes sex and race into account, if the informationis provided. If the race is not provided, and the patient isAfrican-Prydeinig, multiply by 1.212. If sex is not provided, and thepatient is female, multiply by 0.742. Results for patients <18 years ofage have not been validated by the MDRD study and should be interpretedwith caution.eGFR Result Interpretation:eGFR > or=60 is in the Normal RangeeGFR < 60 may mean kidney diseaseeGFR < 15 may mean kidney failureRanges recommended by the National Kidney Foundat ion,http://nkdep.nih.gov POC Glucose, [id number] 20:26:00* Test Item Value Reference Range Comments POC Glucose (test code=POCGLUC) 89 mg/dL 70-115 If you consider your patient critically ill, the [facility] Accu-Chek InformII metershould not be used for Glucose determinations.Draw a venous Glucose and send to the Main Lab for Analysis. POC Glucose, [id number] 16:34:00* Test Item Value Reference Range Comments POC Glucose (test code=POCGLUC) 204 mg/dL 70-115 If you consider your patient critically ill, the [facility] Accu-Chek InformII metershould not be used for Glucose determinations.Draw a venous Glucose and send to the Main Lab for Analysis. POC Glucose, [id number] 12:10:00* Test Item Value Reference Range Comments POC Glucose (test code=POCGLUC) 109 mg/dL 70-115 If you consider your patient critically ill, the [facility] Accu-Chek InformII metershould not be used for Glucose determinations.Draw a venous Glucose and send to the Main Lab for Analysis. POC Glucose, [id number] 10:49:00* Test Item Value Reference Range Comments POC Glucose (test code=POCGLUC) 73 mg/dL 70-115 If you consider your patient critically ill, the [facility] Accu-Chek InformII metershould not be used for Glucose determinations.Draw a venous Glucose and send to the Main Lab for Analysis. POC Glucose, [id number] 07:35:00* Test Item Value Reference Range Comments POC Glucose (test code=POCGLUC) 258 mg/dL 70-115 If you consider your patient critically ill, the [facility] Accu-Chek InformII metershould not be used for Glucose determinations.Draw a venous Glucose and send to the Main Lab for Analysis. CBC with [id number] 06:15:00* Test Item Value Reference Range Comments WBC (test code=WBC) 8.4 K/cumm 4.4-10.5 RBC (test code=RBC) 3.55 M/cumm 4.10-5.70 Hemoglobin (test code=HGB) 10.7 gm/dL 13.4-17.4 Hematocrit (test code=HCT) 32.7 % 38.7-52.0 MCV (test code=MCV) 91.9 fL 80-100 MCH (test code=MCH) 30.2 pg 27.0-32.5 MCHC (test code=MCHC) 32.8 g/dL 32.0-37.5 RDW (test code=RDW) 14.3 % 11.5-14.5 Platelet Count (test code=PLTCT) 259 K/cumm 140-440 MPV (test code=MPV) 7.1 fL Diff Method (test code=DIFFM) Auto Neutrophil (test code=NEUT) 55.7 % 36-70 Lymphocyte (test code=LYMPH) 23.0 % 12-44 Monocyte (test code=MONO) 7.8 % 0-11 Eosinophil (test code=EOS) 12.7 % 0-7 Basophil (test code=BASO) 0.9 % 0-2 Neutro Abs (test code=ANEUT) 4.7 K/cumm 1.6-7.4 Lymph Abs (test code=ALYMPH) 1.9 K/cumm 0.5-4.6 Coamo Abs (test code=AMONO) 0.7 K/cumm 0.0-1.2 Eos Abs (test code=AEOS) 1.07 K/cumm 0.00-0.74 Baso Abs (test code=ABASO) 0.1 K/cumm 0.00-0.21 [id number] 05:44:00* Test Item Value Reference Range Comments Phosphorus (test code=PO4) 5.7 mg/dL 2.70-4.50 Magnesium, [id number] 05:44:00* Test Item Value Reference Range Comments Magnesium (test code=MG) 1.9 mg/dL 1.7-2.5 POC Glucose, [id number] 20:12:00* Test Item Value Reference Range Comments POC Glucose (test code=POCGLUC) 136 mg/dL 70-115 If you consider your patient critically ill, the [facility] Accu-Chek InformII metershould not be used for Glucose determinations.Draw a venous Glucose and send to the Main Lab for Analysis. POC Glucose, [id number] 16:34:00* Test Item Value Reference Range Comments POC Glucose (test code=POCGLUC) 240 mg/dL 70-115 If you consider your patient critically ill, the [facility] Accu-Chek InformII metershould not be used for Glucose determinations.Draw a venous Glucose and send to the Main Lab for Analysis. POC Glucose, [id number] 11:49:00* Test Item Value Reference Range Comments POC Glucose (test code=POCGLUC) 107 mg/dL 70-115 If you consider your patient critically ill, the [facility] Accu-Chek InformII metershould not be used for Glucose determinations.Draw a venous Glucose and send to the Main Lab for Analysis. [id number] 08:20:00* Test Item Value Reference Range Comments Phosphorus (test code=PO4) 4.7 mg/dL 2.70-4.50 Comprehensive Metabolic [id number] 08:20:00* Test Item Value Reference Range Comments Sodium (test code=NA) 138 mmol/L 135-145 Potassium (test code=K) 4.7 mmol/L 3.5-5.1 Chloride (test code=CL) 99 mmol/L 98-105 Carbon Dioxide (test code=CO2) 30 mmol/L 22-29 Glucose (test code=GLU) 78 mg/dL 70-115 Blood Urea Nitrogen (test code=BUN) 34 mg/dL 8-23 Creatinine (test code=CREAT) 1.6 mg/dL 0.7-1.2 Calcium (test code=CA) 8.5 mg/dL 8.3-10.5 Prot Total (test code=TP) 6.1 g/dL 6.4-8.3 Albumin (test code=ALB) 3.0 g/dL 3.5-5.2 A/G Ratio (test code=AGRATIO) 1.0 Ratio Globulin (test code=GLOB) 3.1 2.9-3.1 Bili Total (test code=TBIL) 0.7 mg/dL 0.1-0.9 Alk Phos (test code=APHOS) 100 U/L 40-129 AST (test code=AST) 13 U/L 1-40 ALT (test code=ALT) 12 U/L 1-41 BUN/Creatinine Ratio (test code=BCRATIO) 21.3 Anion Gap (test code=AGAP) 9 mmol/L 7-16 Estimated GFR (test code=GFR) 46 mL/min/1.73m2 eGFR (estimated Glomerular Filtration Rate) is an estimated value,calculated from the patient's serum creatinine using the MDRD equation.It is NOT the patient's actual GFR. The eGFR provides a more clinicallyuseful measure of kidney disease than serum creatinine alone.This calculation takes sex and race into account, if the informationis provided. If the race is not provided, and the patient isAfrican-Prydeinig, multiply by 1.212. If sex is not provided, and thepatient is female, multiply by 0.742. Results for patients <18 years ofage have not been validated by the MDRD study and should be interpretedwith caution.eGFR Result Interpretation:eGFR > or=60 is in the Normal RangeeGFR < 60 may mean kidney diseaseeGFR < 15 may mean kidney failureRanges recommended by the National Kidney Foundat ion,http://nkdep.nih.gov Lactate [id number] 08:20:00* Test Item Value Reference Range Comments LDH (test code=LDH) 201 U/L 135-225 Magnesium, [id number] 08:20:00* Test Item Value Reference Range Comments Magnesium (test code=MG) 2.0 mg/dL 1.7-2.5 POC Glucose, [id number] 07:39:00* Test Item Value Reference Range Comments POC Glucose (test code=POCGLUC) 86 mg/dL 70-115 If you consider your patient critically ill, the [facility] Accu-Chek InformII metershould not be used for Glucose determinations.Draw a venous Glucose and send to the Main Lab for Analysis. CBC with [id number] 07:39:00* Test Item Value Reference Range Comments WBC (test code=WBC) 8.0 K/cumm 4.4-10.5 RBC (test code=RBC) 3.60 M/cumm 4.10-5.70 Hemoglobin (test code=HGB) 10.6 gm/dL 13.4-17.4 Hematocrit (test code=HCT) 30.6 % 38.7-52.0 MCV (test code=MCV) 84.9 fL 80-100 MCH (test code=MCH) 29.5 pg 27.0-32.5 MCHC (test code=MCHC) 34.8 g/dL 32.0-37.5 RDW (test code=RDW) 14.6 % 11.5-14.5 Platelet Count (test code=PLTCT) 254 K/cumm 140-440 MPV (test code=MPV) 9.0 fL Diff Method (test code=DIFFM) Auto Neutrophil (test code=NEUT) 59.5 % 36-70 Lymphocyte (test code=LYMPH) 23.1 % 12-44 Monocyte (test code=MONO) 6.0 % 0-11 Eosinophil (test code=EOS) 10.6 % 0-7 Basophil (test code=BASO) 0.7 % 0-2 Neutro Abs (test code=ANEUT) 4.7 K/cumm 1.6-7.4 Lymph Abs (test code=ALYMPH) 1.8 K/cumm 0.5-4.6 Coamo Abs (test code=AMONO) 0.5 K/cumm 0.0-1.2 Eos Abs (test code=AEOS) 0.85 K/cumm 0.00-0.74 Baso Abs (test code=ABASO) 0.1 K/cumm 0.00-0.21 RBC, Crossmatch 06:00:00* Test Item Value Reference Range Comments Product 1 Code (test code=PRODCODE1) E4543 Unit 1 ID (test code=UNITID1) [id number] Unit 1 ABO (test code=UNITABO1) A Unit 1 Rh (test code=UNITRH1) POS Unit 1 Interp (test code=UNITINTERP1) Compatible Unit 1 Status (test code=UNITSTAT1) PT Product 2 Code (test code=PRODCODE2) E0336 Unit 2 ID (test code=UNITID2) [id number] Unit 2 ABO (test code=UNITABO2) A Unit 2 Rh (test code=UNITRH2) POS Unit 2 Interp (test code=UNITINTERP2) Compatible Unit 2 Status (test code=UNITSTAT2) PT POC Glucose, [id number] 21:16:00* Test Item Value Reference Range Comments POC Glucose (test code=POCGLUC) 188 mg/dL 70-115 Notify RN or MDIf you consider your patient critically ill, the [facility] Accu-Chek InformII metershould not be used for Glucose determinations.Draw a venous Glucose and send to the Main Lab for Analysis. POC Glucose, [id number] 16:26:00* Test Item Value Reference Range Comments POC Glucose (test code=POCGLUC) 98 mg/dL 70-115 If you consider your patient critically ill, the [facility] Accu-Chek InformII metershould not be used for Glucose determinations.Draw a venous Glucose and send to the Main Lab for Analysis. SP ASPIRATE PLEURA W/ [id number] 14:30:28ULTRASOUND-GUIDED THORACENTESISHISTORY: Right pleural effusionPROCEDURE IN DETAIL:Following the explanation of risks, benefits and alternative treatmentoptions, informed written consent was obtained. The procedure wasperformed with the patient in the seated position. 1% Xylocaine was usedfor local anesthesia.Under ultrasound guidance, a 5 Divehi SignalSetesis catheter needle wasadvanced into the right pleural space from a posterior access.Approximately 1 L of clear straw-colored fluid was drained. The catheterwas removed, and a sterile dressing was applied. The patient toleratedthe procedure well and left the radiology department in stablecondition.Complications: None immediateIMPRESSION: Successful removal of 1 L of clear fluid from the right hemithoraxwithout complication. Location: R16 XR CHEST 1 [id number] 14:28:24EXAM: Portable AP chest x-rayLOCATION: R16 INDICATION: thoracentesisCOMPARISON: 07/18/2017FINDINGS:The cardiac silhouette is stable and enlarged. There is aortic archcalcification.Diffuse bilateral interstitial opacities are seen. There are smallbilateral pleural effusions. No discernible pneumothorax. IMPRESSION:Interstitial edema and small bilateral pleural effusions.Vitamin [id number] 13:18:00* Test Item Value Reference Range Comments Vitamin B 12 (test code=VITB12) 553 pg/mL [id number] Ferritin, [id number] 13:18:00* Test Item Value Reference Range Comments Ferritin (test code=FERR) 352 ng/mL 30-400 TIBC and [id number] 13:02:00* Test Item Value Reference Range Comments Iron (test code=FE) 145 ug/dL 59-158 UIBC (test code=UIBC) 64 ug/dL 112-346 TIBC (test code=TIBC) 209 ug/dL 171-504 % Saturation (test code=PSAT) 69 % 20-50 [id number] 11:42:00* Test Item Value Reference Range Comments Phosphorus (test code=PO4) 4.3 mg/dL 2.70-4.50 Lipid [id number] 11:42:00* Test Item Value Reference Range Comments Cholesterol (test code=CHOL) 119 mg/dL 0-200 Triglycerides (test code=TRIG) 130 mg/dL 9-200 HDL (test code=HDL) 39 mg/dL 40-60 Chol/HDL (test code=CHOLPHDL) 3.1 Ratio 0.0-5.0 LDL, Calculated (test code=LDLC) 54 0-130 (NOTE)RISK OF HEART DISEASEPublished by Prydeinig Heart AssociationAnalyte Optimal Boderline Increased RiskCHOL <200 200-239 >240TRIG <150 150- 199 >200HDL Male: >60 <40HDL Female: >60 <50LDL <100 130-159 >160LDL NEAR OPTIMAL IS 100-129 VLDL (test code=VLDL) 26 mg/dL 5-40 LDL/HDL (test code=LDLPHDL) 1 Basic Metabolic [id number] 11:42:00* Test Item Value Reference Range Comments Sodium (test code=NA) 138 mmol/L 135-145 Potassium (test code=K) 4.5 mmol/L 3.5-5.1 Chloride (test code=CL) 101 mmol/L 98-105 Carbon Dioxide (test code=CO2) 28 mmol/L 22-29 Glucose (test code=GLU) 168 mg/dL 70-115 Blood Urea Nitrogen (test code=BUN) 33 mg/dL 8-23 Creatinine (test code=CREAT) 1.6 mg/dL 0.7-1.2 Calcium (test code=CA) 8.7 mg/dL 8.3-10.5 BUN/Creatinine Ratio (test code=BCRATIO) 20.6 Anion Gap (test code=AGAP) 9 mmol/L 7-16 Estimated GFR (test code=GFR) 46 mL/min/1.73m2 eGFR (estimated Glomerular Filtration Rate) is an estimated value,calculated from the patient's serum creatinine using the MDRD equation.It is NOT the patient's actual GFR. The eGFR provides a more clinicallyuseful measure of kidney disease than serum creatinine alone.This calculation takes sex and race into account, if the informationis provided. If the race is not provided, and the patient isAfrican-Prydein[place], multiply by 1.212. If sex is not provided, and thepatient is female, multiply by 0.742. Results for patients <18 years ofage have not been validated by the MDRD study and should be interpretedwith caution.eGFR Result Interpretation:eGFR > or=60 is in the Normal RangeeGFR < 60 may mean kidney diseaseeGFR < 15 may mean kidney failureRanges recommended by the National Kidney Foundat ion,http://nkdep.nih.gov Magnesium, [id number] 11:42:00* Test Item Value Reference Range Comments Magnesium (test code=MG) 2.1 mg/dL 1.7-2.5 POC Glucose, [id number] 11:27:00* Test Item Value Reference Range Comments POC Glucose (test code=POCGLUC) 180 mg/dL 70-115 If you consider your patient critically ill, the [facility] Accu-Chek InformII metershould not be used for Glucose determinations.Draw a venous Glucose and send to the Main Lab for Analysis. Prothrombin [id number] 11:21:00* Test Item Value Reference Range Comments PT (test code=PT) 13.20 seconds 9.78-13.35 INR (test code=INR) 1.17 Ratio 0.6-1.2 Thyroid Stimulating Hormone (TSH)2017-07-20 11:13:00* Test Item Value Reference Range Comments TSH (test code=TSH) 4.23 mIU/mL 0.270-4.200 Glycosylated [id number] 11:07:00* Test Item Value Reference Range Comments HBA1c (test code=HBA1C) 7.3 % 4.8-5.9 CBC with [id number] 10:36:00* Test Item Value Reference Range Comments WBC (test code=WBC) 7.9 K/cumm 4.4-10.5 RBC (test code=RBC) 3.31 M/cumm 4.10-5.70 Hemoglobin (test code=HGB) 10.1 gm/dL 13.4-17.4 READ BACK LAB VALUESVERIFIED BY REPEAT TESTINGrechecked & called to hank,rn @ 6290, post txn/mdj Hematocrit (test code=HCT) 29.8 % 38.7-52.0 MCV (test code=MCV) 89.9 fL 80-100 MCH (test code=MCH) 30.6 pg 27.0-32.5 MCHC (test code=MCHC) 34.1 g/dL 32.0-37.5 RDW (test code=RDW) 14.5 % 11.5-14.5 Platelet Count (test code=PLTCT) 237 K/cumm 140-440 MPV (test code=MPV) 7.1 fL Diff Method (test code=DIFFM) Auto Neutrophil (test code=NEUT) 58.6 % 36-70 Lymphocyte (test code=LYMPH) 23.9 % 12-44 Monocyte (test code=MONO) 6.3 % 0-11 Eosinophil (test code=EOS) 10.5 % 0-7 Basophil (test code=BASO) 0.7 % 0-2 Neutro Abs (test code=ANEUT) 4.6 K/cumm 1.6-7.4 Lymph Abs (test code=ALYMPH) 1.9 K/cumm 0.5-4.6 Coamo Abs (test code=AMONO) 0.5 K/cumm 0.0-1.2 Eos Abs (test code=AEOS) 0.84 K/cumm 0.00-0.74 Baso Abs (test code=ABASO) 0.1 K/cumm 0.00-0.21 Occult [id number] 09:58:00* Test Item Value Reference Range Comments Occ Bld (test code=HSOB) Negative Negative POC Glucose, [id number] 08:07:00* Test Item Value Reference Range Comments POC Glucose (test code=POCGLUC) 94 mg/dL 70-115 If you consider your patient critically ill, the [facility] Accu-Chek InformII metershould not be used for Glucose determinations.Draw a venous Glucose and send to the Main Lab for Analysis. POC Glucose, [id number] 22:07:00* Test Item Value Reference Range Comments POC Glucose (test code=POCGLUC) 80 mg/dL 70-115 If you consider your patient critically ill, the [facility] Accu-Chek InformII metershould not be used for Glucose determinations.Draw a venous Glucose and send to the Main Lab for Analysis. POC Glucose, [id number] 16:18:00* Test Item Value Reference Range Comments POC Glucose (test code=POCGLUC) 189 mg/dL 70-115 Notify RN or MDIf you consider your patient critically ill, the [facility] Accu-Chek InformII metershould not be used for Glucose determinations.Draw a venous Glucose and send to the Main Lab for Analysis. Blood Type and [id number] 13:52:00* Test Item Value Reference Range Comments ABO type (test code=ABO) A Rh Type (test code=RH) Positive Antibody Screen - [id number] 13:52:00* Test Item Value Reference Range Comments Antibody Screen (test code=ABSCR) Negative POC Glucose, [id number] 12:29:00* Test Item Value Reference Range Comments POC Glucose (test code=POCGLUC) 206 mg/dL 70-115 Notify RN or MDIf you consider your patient critically ill, the [facility] Accu-Chek InformII metershould not be used for Glucose determinations.Draw a venous Glucose and send to the Main Lab for Analysis. POC Glucose, [id number] 07:39:00* Test Item Value Reference Range Comments POC Glucose (test code=POCGLUC) 97 mg/dL 70-115 If you consider your patient critically ill, the [facility] Accu-Chek InformII metershould not be used for Glucose determinations.Draw a venous Glucose and send to the Main Lab for Analysis. CBC with [id number] 06:11:00* Test Item Value Reference Range Comments WBC (test code=WBC) 7.6 K/cumm 4.4-10.5 RBC (test code=RBC) 2.39 M/cumm 4.10-5.70 Hemoglobin (test code=HGB) 7.0 gm/dL 13.4-17.4 Hematocrit (test code=HCT) 21.8 % 38.7-52.0 MCV (test code=MCV) 91.2 fL 80-100 MCH (test code=MCH) 29.1 pg 27.0-32.5 MCHC (test code=MCHC) 31.9 g/dL 32.0-37.5 RDW (test code=RDW) 14.8 % 11.5-14.5 Platelet Count (test code=PLTCT) 247 K/cumm 140-440 MPV (test code=MPV) 6.9 fL Diff Method (test code=DIFFM) Auto Neutrophil (test code=NEUT) 57.3 % 36-70 Lymphocyte (test code=LYMPH) 27.1 % 12-44 Monocyte (test code=MONO) 6.3 % 0-11 Eosinophil (test code=EOS) 8.6 % 0-7 Basophil (test code=BASO) 0.6 % 0-2 Neutro Abs (test code=ANEUT) 4.3 K/cumm 1.6-7.4 Lymph Abs (test code=ALYMPH) 2.0 K/cumm 0.5-4.6 Coamo Abs (test code=AMONO) 0.5 K/cumm 0.0-1.2 Eos Abs (test code=AEOS) 0.65 K/cumm 0.00-0.74 Baso Abs (test code=ABASO) 0.1 K/cumm 0.00-0.21 CK [id number] 06:05:00* Test Item Value Reference Range Comments CK (test code=CK) na U/L 39-308 CKMB (test code=CKMB) 2.4 ng/mL 0.0-4.9 CKMB% (test code=CKMBP) 0.0 % 0.0-3.4 Lipid [id number] 05:58:00* Test Item Value Reference Range Comments Cholesterol (test code=CHOL) 111 mg/dL 0-200 Triglycerides (test code=TRIG) 113 mg/dL 9-200 HDL (test code=HDL) 37 mg/dL 40-60 Chol/HDL (test code=CHOLPHDL) 3.0 Ratio 0.0-5.0 LDL, Calculated (test code=LDLC) 51 0-130 (NOTE)RISK OF HEART DISEASEPublished by Prydeinig Heart AssociationAnalyte Optimal Boderline Increased RiskCHOL <200 200-239 >240TRIG <150 150- 199 >200HDL Male: >60 <40HDL Female: >60 <50LDL <100 130-159 >160LDL NEAR OPTIMAL IS 100-129 VLDL (test code=VLDL) 23 mg/dL 5-40 LDL/HDL (test code=LDLPHDL) 1 Troponin [id number] 05:57:00* Test Item Value Reference Range Comments Troponin T (test code=ABBEY) <0.010 ng/mL 0.000-0.090 Urinalysis [id number] 05:48:00* Test Item Value Reference Range Comments Color (test code=COLOR) Yellow Yellow,Straw,Pl yellow Clarity (test code=CLAR) Clear Clear Specific Hollis (test code=SPGR) 1.014 1.001-1.035 pH (test code=PH) 5.0 5.0-9.0 Ketone (test code=KET) Negative mg/dL Negative Glucose (test code=GLUCUR) Negative mg/dL Negative Protein (test code=PROT) 500 mg/dL Negative Bilirubin (test code=BILI) Negative mg/dL Negative Occult Blood (test code=UDOB) Trace Negative Urobilinogen (test code=UROB) 0.2 mg/dL 0.2-1.0 Nitrite (test code=NIT) Negative Negative Leuk Esterase (test code=LEUK) Negative Negative Micros Exam (test code=MEXAM) Indicated Epithelial Cells (test code=EPI) Few /LPF 0-30 WBC, Urine (test code=UWBC) 0-5 /HPF 0-5 RBC, Urine (test code=URBC) 0-3 /HPF 0-5 Bacteria (test code=BACT) Few /HPF CK [id number] 02:17:00* Test Item Value Reference Range Comments CK (test code=CK) 144 U/L 39-308 CKMB (test code=CKMB) 2.2 ng/mL 0.0-4.9 CKMB% (test code=CKMBP) 1.5 % 0.0-3.4 Troponin [id number] 02:11:00* Test Item Value Reference Range Comments Troponin T (test code=ABBEY) <0.010 ng/mL 0.000-0.090 POC Glucose, [id number] 23:54:00* Test Item Value Reference Range Comments POC Glucose (test code=POCGLUC) 122 mg/dL 70-115 If you consider your patient critically ill, the [facility] Accu-Chek InformII metershould not be used for Glucose determinations.Draw a venous Glucose and send to the Main Lab for Analysis. [id number] 20:14:00* Test Item Value Reference Range Comments NT ProBnp (test code=PBNP) 7002 pg/mL 0-124 Troponin [id number] 20:14:00* Test Item Value Reference Range Comments Troponin T (test code=ABBEY) <0.010 ng/mL 0.000-0.090 CK [id number] 20:14:00* Test Item Value Reference Range Comments CK (test code=CK) 158 U/L 39-308 Comprehensive Metabolic [id number] 20:14:00* Test Item Value Reference Range Comments Sodium (test code=NA) 139 mmol/L 135-145 Potassium (test code=K) 5.6 mmol/L 3.5-5.1 Chloride (test code=CL) 105 mmol/L 98-105 Carbon Dioxide (test code=CO2) 28 mmol/L 22-29 Glucose (test code=GLU) 136 mg/dL 70-115 Blood Urea Nitrogen (test code=BUN) 37 mg/dL 8-23 Creatinine (test code=CREAT) 1.6 mg/dL 0.7-1.2 Calcium (test code=CA) 8.5 mg/dL 8.3-10.5 Prot Total (test code=TP) 6.9 g/dL 6.4-8.3 Albumin (test code=ALB) 3.4 g/dL 3.5-5.2 A/G Ratio (test code=AGRATIO) 1.0 Ratio Globulin (test code=GLOB) 3.5 2.9-3.1 Bili Total (test code=TBIL) 0.4 mg/dL 0.1-0.9 Alk Phos (test code=APHOS) 107 U/L 40-129 AST (test code=AST) 16 U/L 1-40 ALT (test code=ALT) 19 U/L 1-41 BUN/Creatinine Ratio (test code=BCRATIO) 23.1 Anion Gap (test code=AGAP) 6 mmol/L 7-16 Estimated GFR (test code=GFR) 46 mL/min/1.73m2 eGFR (estimated Glomerular Filtration Rate) is an estimated value,calculated from the patient's serum creatinine using the MDRD equation.It is NOT the patient's actual GFR. The eGFR provides a more clinicallyuseful measure of kidney disease than serum creatinine alone.This calculation takes sex and race into account, if the informationis provided. If the race is not provided, and the patient isAfrican-Prydein[place], multiply by 1.212. If sex is not provided, and thepatient is female, multiply by 0.742. Results for patients <18 years ofage have not been validated by the MDRD study and should be interpretedwith caution.eGFR Result Interpretation:eGFR > or=60 is in the Normal RangeeGFR < 60 may mean kidney diseaseeGFR < 15 may mean kidney failureRanges recommended by the National Kidney Foundat ion,http://nkdep.nih.gov CBC with [id number] 19:21:00* Test Item Value Reference Range Comments WBC (test code=WBC) 7.6 K/cumm 4.4-10.5 RBC (test code=RBC) 2.46 M/cumm 4.10-5.70 Hemoglobin (test code=HGB) 7.3 gm/dL 13.4-17.4 Hematocrit (test code=HCT) 22.7 % 38.7-52.0 MCV (test code=MCV) 91.9 fL 80-100 MCH (test code=MCH) 29.5 pg 27.0-32.5 MCHC (test code=MCHC) 32.1 g/dL 32.0-37.5 RDW (test code=RDW) 14.9 % 11.5-14.5 Platelet Count (test code=PLTCT) 253 K/cumm 140-440 MPV (test code=MPV) 7.6 fL Diff Method (test code=DIFFM) Auto Neutrophil (test code=NEUT) 56.3 % 36-70 Lymphocyte (test code=LYMPH) 28.2 % 12-44 Monocyte (test code=MONO) 5.5 % 0-11 Eosinophil (test code=EOS) 9.2 % 0-7 Basophil (test code=BASO) 0.9 % 0-2 Neutro Abs (test code=ANEUT) 4.3 K/cumm 1.6-7.4 Lymph Abs (test code=ALYMPH) 2.1 K/cumm 0.5-4.6 Coamo Abs (test code=AMONO) 0.4 K/cumm 0.0-1.2 Eos Abs (test code=AEOS) 0.70 K/cumm 0.00-0.74 Baso Abs (test code=ABASO) 0.1 K/cumm 0.00-0.21 XR CHEST 1 [id number] 19:12:50AFTER HOURS SERVICE ON: 07/18/2017 7:12 PMAP Portable ChestLocation Code [id number]: DyspneaFINDINGS: There is pulmonary edema. There are small bilateral pleural effusions. Apatchy infiltrate is present in the right lung base as well as streakysubsegmental atelectatic changes. Cardiac silhouette is mildly enlarged.There is no pneumothorax.IMPRESSION: 1. Pulmonary edema and small pleural effusions.2. Right basilar alveolar infiltrate. POC Glucose, [id number] 11:41:00* Test Item Value Reference Range Comments POC Glucose (test code=POCGLUC) 132 mg/dL 70-115 If you consider your patient critically ill, the [facility] Accu-Chek InformII metershould not be used for Glucose determinations.Draw a venous Glucose and send to the Main Lab for Analysis. POC Glucose, [id number] 07:38:00* Test Item Value Reference Range Comments POC Glucose (test code=POCGLUC) 87 mg/dL 70-115 If you consider your patient critically ill, the [facility] Accu-Chek InformII metershould not be used for Glucose determinations.Draw a venous Glucose and send to the Main Lab for Analysis. Magnesium, [id number] 05:23:00* Test Item Value Reference Range Comments Magnesium (test code=MG) 2.2 mg/dL 1.7-2.5 [id number] 05:23:00* Test Item Value Reference Range Comments Phosphorus (test code=PO4) 5.2 mg/dL 2.70-4.50 Basic Metabolic [id number] 05:23:00* Test Item Value Reference Range Comments Sodium (test code=NA) 140 mmol/L 135-145 Potassium (test code=K) 4.4 mmol/L 3.5-5.1 Chloride (test code=CL) 102 mmol/L 98-105 Carbon Dioxide (test code=CO2) 31 mmol/L 22-29 Glucose (test code=GLU) 98 mg/dL 70-115 Blood Urea Nitrogen (test code=BUN) 51 mg/dL 8-23 Creatinine (test code=CREAT) 1.7 mg/dL 0.7-1.2 Calcium (test code=CA) 9.0 mg/dL 8.3-10.5 BUN/Creatinine Ratio (test code=BCRATIO) 30.0 Anion Gap (test code=AGAP) 7 mmol/L 7-16 Estimated GFR (test code=GFR) 43 mL/min/1.73m2 eGFR (estimated Glomerular Filtration Rate) is an estimated value,calculated from the patient's serum creatinine using the MDRD equation.It is NOT the patient's actual GFR. The eGFR provides a more clinicallyuseful measure of kidney disease than serum creatinine alone.This calculation takes sex and race into account, if the informationis provided. If the race is not provided, and the patient isAfrican-P[place]in[place], multiply by 1.212. If sex is not provided, and thepatient is female, multiply by 0.742. Results for patients <18 years ofage have not been validated by the MDRD study and should be interpretedwith caution.eGFR Result Interpretation:eGFR > or=60 is in the Normal RangeeGFR < 60 may mean kidney diseaseeGFR < 15 may mean kidney failureRanges recommended by the National Kidney Foundat ion,http://nkdep.nih.gov POC Glucose, [id number] 19:37:00* Test Item Value Reference Range Comments POC Glucose (test code=POCGLUC) 131 mg/dL 70-115 Notify RN or MDIf you consider your patient critically ill, the [facility] Accu-Chek InformII metershould not be used for Glucose determinations.Draw a venous Glucose and send to the Main Lab for Analysis. POC Glucose, [id number] 16:26:00* Test Item Value Reference Range Comments POC Glucose (test code=POCGLUC) 102 mg/dL 70-115 Notify RN or MDIf you consider your patient critically ill, the [facility] Accu-Chek InformII metershould not be used for Glucose determinations.Draw a venous Glucose and send to the Main Lab for Analysis. POC Glucose, [id number] 12:41:00* Test Item Value Reference Range Comments POC Glucose (test code=POCGLUC) 187 mg/dL 70-115 Notify RN or MDIf you consider your patient critically ill, the [facility] Accu-Chek InformII metershould not be used for Glucose determinations.Draw a venous Glucose and send to the Main Lab for Analysis. POC Glucose, [id number] 07:40:00* Test Item Value Reference Range Comments POC Glucose (test code=POCGLUC) 133 mg/dL 70-115 If you consider your patient critically ill, the [facility] Accu-Chek InformII metershould not be used for Glucose determinations.Draw a venous Glucose and send to the Main Lab for Analysis. Renal [id number] 06:08:00* Test Item Value Reference Range Comments Sodium (test code=NA) 141 mmol/L 135-145 Potassium (test code=K) 4.5 mmol/L 3.5-5.1 Chloride (test code=CL) 103 mmol/L 98-105 Carbon Dioxide (test code=CO2) 26 mmol/L 22-29 Glucose (test code=GLU) 107 mg/dL 70-115 Blood Urea Nitrogen (test code=BUN) 47 mg/dL 8-23 Creatinine (test code=CREAT) 1.7 mg/dL 0.7-1.2 Calcium (test code=CA) 8.4 mg/dL 8.3-10.5 Albumin (test code=ALB) 3.1 g/dL 3.5-5.2 Phosphorus (test code=PO4) 5.0 mg/dL 2.70-4.50 BUN/Creatinine Ratio (test code=BCRATIO) 27.6 Anion Gap (test code=AGAP) 12 mmol/L 7-16 Estimated GFR (test code=GFR) 43 mL/min/1.73m2 eGFR (estimated Glomerular Filtration Rate) is an estimated value,calculated from the patient's serum creatinine using the MDRD equation.It is NOT the patient's actual GFR. The eGFR provides a more clinicallyuseful measure of kidney disease than serum creatinine alone.This calculation takes sex and race into account, if the informationis provided. If the race is not provided, and the patient isAfrican-P[place]dein[place], multiply by 1.212. If sex is not provided, and thepatient is female, multiply by 0.742. Results for patients <18 years ofage have not been validated by the MDRD study and should be interpretedwith caution.eGFR Result Interpretation:eGFR > or=60 is in the Normal RangeeGFR < 60 may mean kidney diseaseeGFR < 15 may mean kidney failureRanges recommended by the National Kidney Foundat ion,http://nkdep.nih.gov Epz-[id number] 06:07:00* Test Item Value Reference Range Comments NT ProBnp (test code=PBNP) 6516 pg/mL 0-124 CBC with [id number] 05:36:00* Test Item Value Reference Range Comments WBC (test code=WBC) 8.7 K/cumm 4.4-10.5 RBC (test code=RBC) 2.92 M/cumm 4.10-5.70 Hemoglobin (test code=HGB) 8.7 gm/dL 13.4-17.4 Hematocrit (test code=HCT) 25.9 % 38.7-52.0 MCV (test code=MCV) 88.9 fL 80-100 MCH (test code=MCH) 29.7 pg 27.0-32.5 MCHC (test code=MCHC) 33.4 g/dL 32.0-37.5 RDW (test code=RDW) 13.9 % 11.5-14.5 Platelet Count (test code=PLTCT) 255 K/cumm 140-440 MPV (test code=MPV) 9.7 fL Diff Method (test code=DIFFM) Auto Neutrophil (test code=NEUT) 59.5 % 36-70 Lymphocyte (test code=LYMPH) 24.4 % 12-44 Monocyte (test code=MONO) 7.2 % 0-11 Eosinophil (test code=EOS) 8.2 % 0-7 Basophil (test code=BASO) 0.6 % 0-2 Neutro Abs (test code=ANEUT) 5.2 K/cumm 1.6-7.4 Lymph Abs (test code=ALYMPH) 2.1 K/cumm 0.5-4.6 Coamo Abs (test code=AMONO) 0.6 K/cumm 0.0-1.2 Eos Abs (test code=AEOS) 0.71 K/cumm 0.00-0.74 Baso Abs (test code=ABASO) 0.1 K/cumm 0.00-0.21 POC Glucose, [id number] 21:13:00* Test Item Value Reference Range Comments POC Glucose (test code=POCGLUC) 221 mg/dL 70-115 Notify RN or MDIf you consider your patient critically ill, the [facility] Accu-Chek InformII metershould not be used for Glucose determinations.Draw a venous Glucose and send to the Main Lab for Analysis. POC Glucose, [id number] 16:41:00* Test Item Value Reference Range Comments POC Glucose (test code=POCGLUC) 207 mg/dL 70-115 If you consider your patient critically ill, the [facility] Accu-Chek InformII metershould not be used for Glucose determinations.Draw a venous Glucose and send to the Main Lab for Analysis. POC Glucose, [id number] 12:37:00* Test Item Value Reference Range Comments POC Glucose (test code=POCGLUC) 104 mg/dL 70-115 If you consider your patient critically ill, the [facility] Accu-Chek InformII metershould not be used for Glucose determinations.Draw a venous Glucose and send to the Main Lab for Analysis. US [id number] 11:10:12DICTATION LOCATION: [id number]: [id number]: None available.TECHNIQUE: Sonography of the kidneys and bladder. FINDINGS:Right kidney: 11.7 x 6.0 x 5.7 cm. 1.4 x 1.7 x 0.9 cm lower polesimple cyst. No hydronephrosis or gross calculi.Left kidney: 10.8 x 5.7 x 5.0 cm. 1.1 x 1.1 x 0.8 cm simple cyst at thelower pole. No hydronephrosis or gross calculi.Urinary bladder: Within normal limits.IMPRESSION: No hydronephrosis.Bilateral simple cysts measuring 1.7 cm on the right and 1.1 cm on theleft.XR CHEST 2V, [id number] 10:48:23EXAM: Chest x-ray, 2 viewsLOCATION: R16 INDICATION: sobCOMPARISON: 05/13/2017DISCUSSION:The cardiomediastinal silhouette is within normal limits. There are diffuse bilateral interstitial opacities. Small bilateralpleural effusions with ove rlying atelectasis/consolidation. No acute bony abnormalities are identified. I MPRESSION:Pulmonary edema with small bilateral pleural effusions.Bibasilar opaci ties may represent compressive atelectasis orsuperimposed pneumonia.POC Glucose, [id number] 07:28:00* Test Item Value Reference Range Comments POC Glucose (test code=POCGLUC) 104 mg/dL 70-115 If you consider your patient critically ill, the [facility] Accu-Chek InformII metershould not be used for Glucose determinations.Draw a venous Glucose and send to the Main Lab for Analysis. RBC, Crossmatch [id number] 06:00:00* Test Item Value Reference Range Comments Product 1 Code (test code=PRODCODE1) E4533 Unit 1 ID (test code=UNITID1) [id number] Unit 1 ABO (test code=UNITABO1) A Unit 1 Rh (test code=UNITRH1) POS Unit 1 Interp (test code=UNITINTERP1) Compatible Unit 1 Status (test code=UNITSTAT1) PT RBC, Crossmatch 06:00:00* Test Item Value Reference Range Comments Product 1 Code (test code=PRODCODE1) E4533 Unit 1 ID (test code=UNITID1) [id number] Unit 1 ABO (test code=UNITABO1) A Unit 1 Rh (test code=UNITRH1) POS Unit 1 Interp (test code=UNITINTERP1) Compatible Unit 1 Status (test code=UNITSTAT1) RE Product 2 Code (test code=PRODCODE2) E4533 Unit 2 ID (test code=UNITID2) [id number] Unit 2 ABO (test code=UNITABO2) A Unit 2 Rh (test code=UNITRH2) POS Unit 2 Interp (test code=UNITINTERP2) Compatible Unit 2 Status (test code=UNITSTAT2) PT Basic Metabolic [id number] 05:45:00* Test Item Value Reference Range Comments Sodium (test code=NA) 140 mmol/L 135-145 Potassium (test code=K) 5.1 mmol/L 3.5-5.1 Chloride (test code=CL) 105 mmol/L 98-105 Carbon Dioxide (test code=CO2) 24 mmol/L 22-29 Glucose (test code=GLU) 107 mg/dL 70-115 Blood Urea Nitrogen (test code=BUN) 42 mg/dL 8-23 Creatinine (test code=CREAT) 1.6 mg/dL 0.7-1.2 Calcium (test code=CA) 8.4 mg/dL 8.3-10.5 BUN/Creatinine Ratio (test code=BCRATIO) 26.3 Anion Gap (test code=AGAP) 11 mmol/L 7-16 Estimated GFR (test code=GFR) 46 mL/min/1.73m2 eGFR (estimated Glomerular Filtration Rate) is an estimated value,calculated from the patient's serum creatinine using the MDRD equation.It is NOT the patient's actual GFR. The eGFR provides a more clinicallyuseful measure of kidney disease than serum creatinine alone.This calculation takes sex and race into account, if the informationis provided. If the race is not provided, and the patient isAfrican-Prydein[place], multiply by 1.212. If sex is not provided, and thepatient is female, multiply by 0.742. Results for patients <18 years ofage have not been validated by the MDRD study and should be interpretedwith caution.eGFR Result Interpretation:eGFR > or=60 is in the Normal RangeeGFR < 60 may mean kidney diseaseeGFR < 15 may mean kidney failureRanges recommended by the National Kidney Foundat ion,http://nkdep.nih.gov CBC with [id number] 05:21:00* Test Item Value Reference Range Comments WBC (test code=WBC) 11.1 K/cumm 4.4-10.5 RBC (test code=RBC) 3.18 M/cumm 4.10-5.70 Hemoglobin (test code=HGB) 9.5 gm/dL 13.4-17.4 Hematocrit (test code=HCT) 27.5 % 38.7-52.0 MCV (test code=MCV) 86.5 fL 80-100 MCH (test code=MCH) 30.0 pg 27.0-32.5 MCHC (test code=MCHC) 34.7 g/dL 32.0-37.5 RDW (test code=RDW) 14.1 % 11.5-14.5 Platelet Count (test code=PLTCT) 273 K/cumm 140-440 MPV (test code=MPV) 9.8 fL Diff Method (test code=DIFFM) Auto Neutrophil (test code=NEUT) 65.3 % 36-70 Lymphocyte (test code=LYMPH) 19.9 % 12-44 Monocyte (test code=MONO) 6.1 % 0-11 Eosinophil (test code=EOS) 8.0 % 0-7 Basophil (test code=BASO) 0.6 % 0-2 Neutro Abs (test code=ANEUT) 7.2 K/cumm 1.6-7.4 Lymph Abs (test code=ALYMPH) 2.2 K/cumm 0.5-4.6 Coamo Abs (test code=AMONO) 0.7 K/cumm 0.0-1.2 Eos Abs (test code=AEOS) 0.89 K/cumm 0.00-0.74 Baso Abs (test code=ABASO) 0.1 K/cumm 0.00-0.21 POC Glucose, [id number] 20:40:00* Test Item Value Reference Range Comments POC Glucose (test code=POCGLUC) 137 mg/dL 70-115 Notify RN or MDIf you consider your patient critically ill, the [facility] Accu-Chek InformII metershould not be used for Glucose determinations.Draw a venous Glucose and send to the Main Lab for Analysis. POC Glucose, [id number] 16:44:00* Test Item Value Reference Range Comments POC Glucose (test code=POCGLUC) 137 mg/dL 70-115 If you consider your patient critically ill, the [facility] Accu-Chek InformII metershould not be used for Glucose determinations.Draw a venous Glucose and send to the Main Lab for Analysis. POC Glucose, [id number] 12:06:00* Test Item Value Reference Range Comments POC Glucose (test code=POCGLUC) 217 mg/dL 70-115 If you consider your patient critically ill, the [facility] Accu-Chek InformII metershould not be used for Glucose determinations.Draw a venous Glucose and send to the Main Lab for Analysis. POC Glucose, [id number] 07:22:00* Test Item Value Reference Range Comments POC Glucose (test code=POCGLUC) 131 mg/dL 70-115 If you consider your patient critically ill, the [facility] Accu-Chek InformII metershould not be used for Glucose determinations.Draw a venous Glucose and send to the Main Lab for Analysis. Magnesium, [id number] 06:00:00* Test Item Value Reference Range Comments Magnesium (test code=MG) 2.5 mg/dL 1.7-2.5 [id number] 06:00:00* Test Item Value Reference Range Comments Phosphorus (test code=PO4) 4.7 mg/dL 2.70-4.50 Basic Metabolic [id number] 06:00:00* Test Item Value Reference Range Comments Sodium (test code=NA) 137 mmol/L 135-145 Potassium (test code=K) 4.8 mmol/L 3.5-5.1 Chloride (test code=CL) 102 mmol/L 98-105 Carbon Dioxide (test code=CO2) 25 mmol/L 22-29 Glucose (test code=GLU) 90 mg/dL 70-115 Blood Urea Nitrogen (test code=BUN) 41 mg/dL 8-23 Creatinine (test code=CREAT) 1.7 mg/dL 0.7-1.2 Calcium (test code=CA) 8.4 mg/dL 8.3-10.5 BUN/Creatinine Ratio (test code=BCRATIO) 24.1 Anion Gap (test code=AGAP) 10 mmol/L 7-16 Estimated GFR (test code=GFR) 43 mL/min/1.73m2 eGFR (estimated Glomerular Filtration Rate) is an estimated value,calculated from the patient's serum creatinine using the MDRD equation.It is NOT the patient's actual GFR. The eGFR provides a more clinicallyuseful measure of kidney disease than serum creatinine alone.This calculation takes sex and race into account, if the informationis provided. If the race is not provided, and the patient isAfrican-Prydein[place], multiply by 1.212. If sex is not provided, and thepatient is female, multiply by 0.742. Results for patients <18 years ofage have not been validated by the MDRD study and should be interpretedwith caution.eGFR Result Interpretation:eGFR > or=60 is in the Normal RangeeGFR < 60 may mean kidney diseaseeGFR < 15 may mean kidney failureRanges recommended by the National Kidney Foundat ion,http://nkdep.nih.gov CBC with [id number] 05:58:00* Test Item Value Reference Range Comments WBC (test code=WBC) 8.6 K/cumm 4.4-10.5 RBC (test code=RBC) 2.70 M/cumm 4.10-5.70 Hemoglobin (test code=HGB) 8.0 gm/dL 13.4-17.4 Hematocrit (test code=HCT) 25.1 % 38.7-52.0 MCV (test code=MCV) 92.8 fL 80-100 MCH (test code=MCH) 29.7 pg 27.0-32.5 MCHC (test code=MCHC) 32.0 g/dL 32.0-37.5 RDW (test code=RDW) 13.9 % 11.5-14.5 Platelet Count (test code=PLTCT) 283 K/cumm 140-440 MPV (test code=MPV) 7.3 fL Diff Method (test code=DIFFM) Auto Neutrophil (test code=NEUT) 53.9 % 36-70 Lymphocyte (test code=LYMPH) 29.6 % 12-44 Monocyte (test code=MONO) 6.4 % 0-11 Eosinophil (test code=EOS) 9.4 % 0-7 Basophil (test code=BASO) 0.7 % 0-2 Neutro Abs (test code=ANEUT) 4.6 K/cumm 1.6-7.4 Lymph Abs (test code=ALYMPH) 2.5 K/cumm 0.5-4.6 Coamo Abs (test code=AMONO) 0.6 K/cumm 0.0-1.2 Eos Abs (test code=AEOS) 0.81 K/cumm 0.00-0.74 Baso Abs (test code=ABASO) 0.1 K/cumm 0.00-0.21 POC Glucose, [id number] 22:14:00* Test Item Value Reference Range Comments POC Glucose (test code=POCGLUC) 187 mg/dL 70-115 Notify RN or MDIf you consider your patient critically ill, the [facility] Accu-Chek InformII metershould not be used for Glucose determinations.Draw a venous Glucose and send to the Main Lab for Analysis. POC Glucose, [id number] 20:13:00* Test Item Value Reference Range Comments POC Glucose (test code=POCGLUC) 186 mg/dL 70-115 Notify RN or MDIf you consider your patient critically ill, the [facility] Accu-Chek InformII metershould not be used for Glucose determinations.Draw a venous Glucose and send to the Main Lab for Analysis. Blood Type and [id number] 16:30:00* Test Item Value Reference Range Comments ABO type (test code=ABO) A Rh Type (test code=RH) Positive Antibody Screen - [id number] 16:30:00* Test Item Value Reference Range Comments Antibody Screen (test code=ABSCR) Negative POC Glucose, [id number] 15:56:00* Test Item Value Reference Range Comments POC Glucose (test code=POCGLUC) 150 mg/dL 70-115 If you consider your patient critically ill, the [facility] Accu-Chek InformII metershould not be used for Glucose determinations.Draw a venous Glucose and send to the Main Lab for Analysis. POC Glucose, [id number] 11:17:00* Test Item Value Reference Range Comments POC Glucose (test code=POCGLUC) 216 mg/dL 70-115 If you consider your patient critically ill, the [facility] Accu-Chek InformII metershould not be used for Glucose determinations.Draw a venous Glucose and send to the Main Lab for Analysis. POC Glucose, [id number] 07:08:00* Test Item Value Reference Range Comments POC Glucose (test code=POCGLUC) 165 mg/dL 70-115 If you consider your patient critically ill, the [facility] Accu-Chek InformII metershould not be used for Glucose determinations.Draw a venous Glucose and send to the Main Lab for Analysis. CBC with [id number] 06:12:00* Test Item Value Reference Range Comments WBC (test code=WBC) 8.2 K/cumm 4.4-10.5 RBC (test code=RBC) 2.41 M/cumm 4.10-5.70 Hemoglobin (test code=HGB) 7.1 gm/dL 13.4-17.4 Hematocrit (test code=HCT) 21.0 % 38.7-52.0 MCV (test code=MCV) 87.3 fL 80-100 MCH (test code=MCH) 29.4 pg 27.0-32.5 MCHC (test code=MCHC) 33.7 g/dL 32.0-37.5 RDW (test code=RDW) 13.2 % 11.5-14.5 Platelet Count (test code=PLTCT) 256 K/cumm 140-440 MPV (test code=MPV) 10.5 fL Diff Method (test code=DIFFM) Auto Neutrophil (test code=NEUT) 49.0 % 36-70 Lymphocyte (test code=LYMPH) 33.4 % 12-44 Monocyte (test code=MONO) 6.4 % 0-11 Eosinophil (test code=EOS) 10.4 % 0-7 Basophil (test code=BASO) 0.7 % 0-2 Neutro Abs (test code=ANEUT) 4.0 K/cumm 1.6-7.4 Lymph Abs (test code=ALYMPH) 2.7 K/cumm 0.5-4.6 Coamo Abs (test code=AMONO) 0.5 K/cumm 0.0-1.2 Eos Abs (test code=AEOS) 0.85 K/cumm 0.00-0.74 Baso Abs (test code=ABASO) 0.1 K/cumm 0.00-0.21 Renal [id number] 05:56:00* Test Item Value Reference Range Comments Sodium (test code=NA) 138 mmol/L 135-145 Potassium (test code=K) HEMO mmol/L 3.5-5.1 Chloride (test code=CL) 103 mmol/L 98-105 Carbon Dioxide (test code=CO2) 23 mmol/L 22-29 Glucose (test code=GLU) 104 mg/dL 70-115 Blood Urea Nitrogen (test code=BUN) 41 mg/dL 8-23 Creatinine (test code=CREAT) 1.9 mg/dL 0.7-1.2 Calcium (test code=CA) 8.2 mg/dL 8.3-10.5 Albumin (test code=ALB) 3.0 g/dL 3.5-5.2 Phosphorus (test code=PO4) 4.9 mg/dL 2.70-4.50 BUN/Creatinine Ratio (test code=BCRATIO) 21.6 Anion Gap (test code=AGAP) 12 mmol/L 7-16 Estimated GFR (test code=GFR) 38 mL/min/1.73m2 eGFR (estimated Glomerular Filtration Rate) is an estimated value,calculated from the patient's serum creatinine using the MDRD equation.It is NOT the patient's actual GFR. The eGFR provides a more clinicallyuseful measure of kidney disease than serum creatinine alone.This calculation takes sex and race into account, if the informationis provided. If the race is not provided, and the patient isAfrican-[place], multiply by 1.212. If sex is not provided, and thepatient is female, multiply by 0.742. Results for patients <18 years ofage have not been validated by the MDRD study and should be interpretedwith caution.eGFR Result Interpretation:eGFR > or=60 is in the Normal RangeeGFR < 60 may mean kidney diseaseeGFR < 15 may mean kidney failureRanges recommended by the National Kidney Foundat ion,http://nkdep.nih.gov Occult [id number] 00:11:00* Test Item Value Reference Range Comments Occ Bld (test code=HSOB) Negative Negative POC Glucose, [id number] 19:56:00* Test Item Value Reference Range Comments POC Glucose (test code=POCGLUC) 181 mg/dL 70-115 Notify RN or MDIf you consider your patient critically ill, the [facility] Accu-Chek InformII metershould not be used for Glucose determinations.Draw a venous Glucose and send to the Main Lab for Analysis. POC Glucose, [id number] 16:37:00* Test Item Value Reference Range Comments POC Glucose (test code=POCGLUC) 102 mg/dL 70-115 Notify RN or MDIf you consider your patient critically ill, the [facility] Accu-Chek InformII metershould not be used for Glucose determinations.Draw a venous Glucose and send to the Main Lab for Analysis. POC Glucose, [id number] 12:16:00* Test Item Value Reference Range Comments POC Glucose (test code=POCGLUC) 190 mg/dL 70-115 Notify RN or MDIf you consider your patient critically ill, the [facility] Accu-Chek InformII metershould not be used for Glucose determinations.Draw a venous Glucose and send to the Main Lab for Analysis. Renal [id number] 07:17:00* Test Item Value Reference Range Comments Sodium (test code=NA) 137 mmol/L 135-145 Potassium (test code=K) 4.6 mmol/L 3.5-5.1 Chloride (test code=CL) 102 mmol/L 98-105 Carbon Dioxide (test code=CO2) 27 mmol/L 22-29 Glucose (test code=GLU) 94 mg/dL 70-115 Blood Urea Nitrogen (test code=BUN) 43 mg/dL 8-23 Creatinine (test code=CREAT) 1.8 mg/dL 0.7-1.2 Calcium (test code=CA) 8.4 mg/dL 8.3-10.5 Albumin (test code=ALB) 3.1 g/dL 3.5-5.2 Phosphorus (test code=PO4) 5.6 mg/dL 2.70-4.50 BUN/Creatinine Ratio (test code=BCRATIO) 23.9 Anion Gap (test code=AGAP) 8 mmol/L 7-16 Estimated GFR (test code=GFR) 40 mL/min/1.73m2 eGFR (estimated Glomerular Filtration Rate) is an estimated value,calculated from the patient's serum creatinine using the MDRD equation.It is NOT the patient's actual GFR. The eGFR provides a more clinicallyuseful measure of kidney disease than serum creatinine alone.This calculation takes sex and race into account, if the informationis provided. If the race is not provided, and the patient isAfrican-[place], multiply by 1.212. If sex is not provided, and thepatient is female, multiply by 0.742. Results for patients <18 years ofage have not been validated by the MDRD study and should be interpretedwith caution.eGFR Result Interpretation:eGFR > or=60 is in the Normal RangeeGFR < 60 may mean kidney diseaseeGFR < 15 may mean kidney failureRanges recommended by the National Kidney Foundat ion,http://nkdep.nih.gov CK [id number] 07:17:00* Test Item Value Reference Range Comments CK (test code=CK) 351 U/L 39-308 CBC with [id number] 07:07:00* Test Item Value Reference Range Comments WBC (test code=WBC) 8.7 K/cumm 4.4-10.5 RBC (test code=RBC) 2.43 M/cumm 4.10-5.70 Hemoglobin (test code=HGB) 7.1 gm/dL 13.4-17.4 Hematocrit (test code=HCT) 21.8 % 38.7-52.0 MCV (test code=MCV) 89.6 fL 80-100 MCH (test code=MCH) 29.0 pg 27.0-32.5 MCHC (test code=MCHC) 32.4 g/dL 32.0-37.5 RDW (test code=RDW) 13.5 % 11.5-14.5 Platelet Count (test code=PLTCT) 261 K/cumm 140-440 MPV (test code=MPV) 7.2 fL Diff Method (test code=DIFFM) Auto Neutrophil (test code=NEUT) 53.6 % 36-70 Lymphocyte (test code=LYMPH) 30.3 % 12-44 Monocyte (test code=MONO) 6.1 % 0-11 Eosinophil (test code=EOS) 9.4 % 0-7 Basophil (test code=BASO) 0.6 % 0-2 Neutro Abs (test code=ANEUT) 4.7 K/cumm 1.6-7.4 Lymph Abs (test code=ALYMPH) 2.6 K/cumm 0.5-4.6 Coamo Abs (test code=AMONO) 0.5 K/cumm 0.0-1.2 Eos Abs (test code=AEOS) 0.82 K/cumm 0.00-0.74 Baso Abs (test code=ABASO) 0.1 K/cumm 0.00-0.21 POC Glucose, [id number] 06:59:00* Test Item Value Reference Range Comments POC Glucose (test code=POCGLUC) 99 mg/dL 70-115 Notify RN or MDIf you consider your patient critically ill, the [facility] Accu-Chek InformII metershould not be used for Glucose determinations.Draw a venous Glucose and send to the Main Lab for Analysis. PTH, [id number] 21:15:00* Test Item Value Reference Range Comments Parathyroid Hormone, Intact (test code=PTH INTACT) 48.44 pg/mL 15.00-65.00 Microalb/Creat Ratio, Randm [id number] 20:57:00* Test Item Value Reference Range Comments Creatinine, Urine Rm (test code=CREURRM) 134.8 mg/dL 10.0-300.0 Microalbumin, Urine (test code=MAUR) 1257 mg/L 0-23 VERIFIED BY REPEAT TESTING Microalb/Creat Ratio (test code=MACRRUR) 932 mg/G 0-20 Urinalysis [id number] 20:44:00* Test Item Value Reference Range Comments Color (test code=COLOR) Yellow Yellow,Straw,Pl yellow Clarity (test code=CLAR) Clear Clear Specific [place] (test code=SPGR) 1.016 1.001-1.035 pH (test code=PH) 5.0 5.0-9.0 Ketone (test code=KET) Negative mg/dL Negative Glucose (test code=GLUCUR) Negative mg/dL Negative Protein (test code=PROT) 150 mg/dL Negative Bilirubin (test code=BILI) Negative mg/dL Negative Occult Blood (test code=UDOB) Small Negative Urobilinogen (test code=UROB) 0.2 mg/dL 0.2-1.0 Nitrite (test code=NIT) Negative Negative Leuk Esterase (test code=LEUK) Negative Negative Micros Exam (test code=MEXAM) Indicated Epithelial Cells (test code=EPI) None /LPF 0-30 WBC, Urine (test code=UWBC) None seen /HPF 0-5 RBC, Urine (test code=URBC) None Seen /HPF 0-5 Bacteria (test code=BACT) None /HPF POC Glucose, [id number] 20:38:00* Test Item Value Reference Range Comments POC Glucose (test code=POCGLUC) 90 mg/dL 70-115 If you consider your patient critically ill, the [facility] Accu-Chek InformII metershould not be used for Glucose determinations.Draw a venous Glucose and send to the Main Lab for Analysis. POC Glucose, [id number] 17:08:00* Test Item Value Reference Range Comments POC Glucose (test code=POCGLUC) 109 mg/dL 70-115 If you consider your patient critically ill, the [facility] Accu-Chek InformII metershould not be used for Glucose determinations.Draw a venous Glucose and send to the Main Lab for Analysis. POC Glucose, [id number] 12:54:00* Test Item Value Reference Range Comments POC Glucose (test code=POCGLUC) 190 mg/dL 70-115 Notify RN or MDIf you consider your patient critically ill, the [facility] Accu-Chek InformII metershould not be used for Glucose determinations.Draw a venous Glucose and send to the Main Lab for Analysis. POC Glucose, [id number] 07:30:00* Test Item Value Reference Range Comments POC Glucose (test code=POCGLUC) 133 mg/dL 70-115 If you consider your patient critically ill, the [facility] Accu-Chek InformII metershould not be used for Glucose determinations.Draw a venous Glucose and send to the Main Lab for Analysis. [id number] 06:22:00* Test Item Value Reference Range Comments Phosphorus (test code=PO4) 5.4 mg/dL 2.70-4.50 Magnesium, [id number] 06:22:00* Test Item Value Reference Range Comments Magnesium (test code=MG) 2.0 mg/dL 1.7-2.5 Basic Metabolic [id number] 06:22:00* Test Item Value Reference Range Comments Sodium (test code=NA) 140 mmol/L 135-145 Potassium (test code=K) 4.7 mmol/L 3.5-5.1 Chloride (test code=CL) 102 mmol/L 98-105 Carbon Dioxide (test code=CO2) 27 mmol/L 22-29 Glucose (test code=GLU) 138 mg/dL 70-115 Blood Urea Nitrogen (test code=BUN) 39 mg/dL 8-23 Creatinine (test code=CREAT) 1.9 mg/dL 0.7-1.2 Calcium (test code=CA) 8.7 mg/dL 8.3-10.5 BUN/Creatinine Ratio (test code=BCRATIO) 20.5 Anion Gap (test code=AGAP) 11 mmol/L 7-16 Estimated GFR (test code=GFR) 38 mL/min/1.73m2 eGFR (estimated Glomerular Filtration Rate) is an estimated value,calculated from the patient's serum creatinine using the MDRD equation.It is NOT the patient's actual GFR. The eGFR provides a more clinicallyuseful measure of kidney disease than serum creatinine alone.This calculation takes sex and race into account, if the informationis provided. If the race is not provided, and the patient isAfrican-[place], multiply by 1.212. If sex is not provided, and thepatient is female, multiply by 0.742. Results for patients <18 years ofage have not been validated by the MDRD study and should be interpretedwith caution.eGFR Result Interpretation:eGFR > or=60 is in the Normal RangeeGFR < 60 may mean kidney diseaseeGFR < 15 may mean kidney failureRanges recommended by the National Kidney Foundat ion,http://nkdep.nih.gov POC Glucose, [id number] 20:12:00* Test Item Value Reference Range Comments POC Glucose (test code=POCGLUC) 187 mg/dL 70-115 If you consider your patient critically ill, the [facility] Accu-Chek InformII metershould not be used for Glucose determinations.Draw a venous Glucose and send to the Main Lab for Analysis. POC Glucose, [id number] 16:03:00* Test Item Value Reference Range Comments POC Glucose (test code=POCGLUC) 140 mg/dL 70-115 If you consider your patient critically ill, the [facility] Accu-Chek InformII metershould not be used for Glucose determinations.Draw a venous Glucose and send to the Main Lab for Analysis. POC Glucose, [id number] 11:02:00* Test Item Value Reference Range Comments POC Glucose (test code=POCGLUC) 193 mg/dL 70-115 If you consider your patient critically ill, the [facility] Accu-Chek InformII metershould not be used for Glucose determinations.Draw a venous Glucose and send to the Main Lab for Analysis. CK [id number] 08:43:00* Test Item Value Reference Range Comments CK (test code=CK) n/a U/L 39-308 CKMB (test code=CKMB) 2.2 ng/mL 0.0-4.9 CKMB% (test code=CKMBP) n/a % 0.0-3.4 Vitamin [id number] 07:51:00* Test Item Value Reference Range Comments Vitamin B 12 (test code=VITB12) 463 pg/mL 211-946 Ferritin, [id number] 07:51:00* Test Item Value Reference Range Comments Ferritin (test code=FERR) 212 ng/mL 30-400 Thyroid Stimulating Hormone (TSH)2017-05-14 07:36:00* Test Item Value Reference Range Comments TSH (test code=TSH) 2.48 mIU/mL 0.270-4.200 Glycosylated [id number] 07:10:00* Test Item Value Reference Range Comments HBA1c (test code=HBA1C) 8.2 % 4.8-5.9 Troponin [id number] 07:09:00* Test Item Value Reference Range Comments Troponin T (test code=ABBEY) <0.010 ng/mL 0.000-0.090 Magnesium, [id number] 07:07:00* Test Item Value Reference Range Comments Magnesium (test code=MG) 2.0 mg/dL 1.7-2.5 Lipid [id number] 07:07:00* Test Item Value Reference Range Comments Cholesterol (test code=CHOL) 201 mg/dL 0-200 Triglycerides (test code=TRIG) 216 mg/dL 9-200 Unable to calculate, Trig >400 HDL (test code=HDL) 31 mg/dL 40-60 Chol/HDL (test code=CHOLPHDL) 6.5 Ratio 0.0-5.0 LDL, Calculated (test code=LDLC) 127 mg/dL 0-130 (NOTE)RISK OF HEART DISEASEPublished by Prydeinig Heart AssociationAnalyte Optimal Boderline Increased RiskCHOL <200 200-239 >240TRIG <150 150- 199 >200HDL Male: >60 <40HDL Female: >60 <50LDL <100 130-159 >160LDL NEAR OPTIMAL IS 100-129 VLDL (test code=VLDL) 43 mg/dL 5-40 LDL/HDL (test code=LDLPHDL) 4 Basic Metabolic [id number] 07:07:00* Test Item Value Reference Range Comments Sodium (test code=NA) 140 mmol/L 135-145 Potassium (test code=K) 4.4 mmol/L 3.5-5.1 Chloride (test code=CL) 104 mmol/L 98-105 Carbon Dioxide (test code=CO2) 26 mmol/L 22-29 Glucose (test code=GLU) 125 mg/dL 70-115 Blood Urea Nitrogen (test code=BUN) 31 mg/dL 8-23 Creatinine (test code=CREAT) 1.5 mg/dL 0.7-1.2 Calcium (test code=CA) 8.6 mg/dL 8.3-10.5 BUN/Creatinine Ratio (test code=BCRATIO) 20.7 Anion Gap (test code=AGAP) 10 mmol/L 7-16 Estimated GFR (test code=GFR) 49 mL/min/1.73m2 eGFR (estimated Glomerular Filtration Rate) is an estimated value,calculated from the patient's serum creatinine using the MDRD equation.It is NOT the patient's actual GFR. The eGFR provides a more clinicallyuseful measure of kidney disease than serum creatinine alone.This calculation takes sex and race into account, if the informationis provided. If the race is not provided, and the patient isAfrican-[place], multiply by 1.212. If sex is not provided, and thepatient is female, multiply by 0.742. Results for patients <18 years ofage have not been validated by the MDRD study and should be interpretedwith caution.eGFR Result Interpretation:eGFR > or=60 is in the Normal RangeeGFR < 60 may mean kidney diseaseeGFR < 15 may mean kidney failureRanges recommended by the National Kidney Foundat ion,http://nkdep.nih.gov [id number] 07:07:00* Test Item Value Reference Range Comments Phosphorus (test code=PO4) 4.5 mg/dL 2.70-4.50 Retic Count, [id number] 06:51:00* Test Item Value Reference Range Comments Retic % (test code=PRETIC) 2.8 % 0.8-2.6 POC Glucose, [id number] 06:44:00* Test Item Value Reference Range Comments POC Glucose (test code=POCGLUC) 137 mg/dL 70-115 If you consider your patient critically ill, the [facility] Accu-Chek InformII metershould not be used for Glucose determinations.Draw a venous Glucose and send to the Main Lab for Analysis. POC Glucose, [id number] 20:27:00* Test Item Value Reference Range Comments POC Glucose (test code=POCGLUC) 161 mg/dL 70-115 If you consider your patient critically ill, the [facility] Accu-Chek InformII metershould not be used for Glucose determinations.Draw a venous Glucose and send to the Main Lab for Analysis. Troponin [id number] 16:20:00* Test Item Value Reference Range Comments Troponin T (test code=ABBEY) <0.010 ng/mL 0.000-0.090 [id number] 15:10:00* Test Item Value Reference Range Comments NT ProBnp (test code=PBNP) 3468 pg/mL 0-124 Comprehensive Metabolic [id number] 15:10:00* Test Item Value Reference Range Comments Sodium (test code=NA) 138 mmol/L 135-145 Potassium (test code=K) 4.3 mmol/L 3.5-5.1 Chloride (test code=CL) 102 mmol/L 98-105 Carbon Dioxide (test code=CO2) 24 mmol/L 22-29 Glucose (test code=GLU) 123 mg/dL 70-115 Blood Urea Nitrogen (test code=BUN) 33 mg/dL 8-23 Creatinine (test code=CREAT) 1.4 mg/dL 0.7-1.2 Calcium (test code=CA) 8.7 mg/dL 8.3-10.5 Prot Total (test code=TP) 7.0 g/dL 6.4-8.3 Albumin (test code=ALB) 3.7 g/dL 3.5-5.2 A/G Ratio (test code=AGRATIO) 1.1 Ratio Globulin (test code=GLOB) 3.3 2.9-3.1 Bili Total (test code=TBIL) 0.3 mg/dL 0.1-0.9 Alk Phos (test code=APHOS) 101 U/L 40-129 AST (test code=AST) 18 U/L 1-40 ALT (test code=ALT) 13 U/L 1-41 BUN/Creatinine Ratio (test code=BCRATIO) 23.6 Anion Gap (test code=AGAP) 12 mmol/L 7-16 Estimated GFR (test code=GFR) 54 mL/min/1.73m2 eGFR (estimated Glomerular Filtration Rate) is an estimated value,calculated from the patient's serum creatinine using the MDRD equation.It is NOT the patient's actual GFR. The eGFR provides a more clinicallyuseful measure of kidney disease than serum creatinine alone.This calculation takes sex and race into account, if the informationis provided. If the race is not provided, and the patient isAfrican-[place], multiply by 1.212. If sex is not provided, and thepatient is female, multiply by 0.742. Results for patients <18 years ofage have not been validated by the MDRD study and should be interpretedwith caution.eGFR Result Interpretation:eGFR > or=60 is in the Normal RangeeGFR < 60 may mean kidney diseaseeGFR < 15 may mean kidney failureRanges recommended by the National Kidney Foundat ion,http://nkdep.nih.gov CBC with [id number] 15:02:00* Test Item Value Reference Range Comments WBC (test code=WBC) 8.3 K/cumm 4.4-10.5 RBC (test code=RBC) 2.86 M/cumm 4.10-5.70 Hemoglobin (test code=HGB) 8.3 gm/dL 13.4-17.4 Hematocrit (test code=HCT) 26.0 % 38.7-52.0 MCV (test code=MCV) 91.1 fL 80-100 MCH (test code=MCH) 29.2 pg 27.0-32.5 MCHC (test code=MCHC) 32.0 g/dL 32.0-37.5 RDW (test code=RDW) 13.4 % 11.5-14.5 Platelet Count (test code=PLTCT) 294 K/cumm 140-440 MPV (test code=MPV) 7.1 fL Diff Method (test code=DIFFM) Auto Neutrophil (test code=NEUT) 54.9 % 36-70 Lymphocyte (test code=LYMPH) 28.3 % 12-44 Monocyte (test code=MONO) 5.0 % 0-11 Eosinophil (test code=EOS) 10.8 % 0-7 Basophil (test code=BASO) 1.0 % 0-2 Neutro Abs (test code=ANEUT) 4.6 K/cumm 1.6-7.4 Lymph Abs (test code=ALYMPH) 2.4 K/cumm 0.5-4.6 [place] Abs (test code=AMONO) 0.4 K/cumm 0.0-1.2 Eos Abs (test code=AEOS) 0.90 K/cumm 0.00-0.74 Baso Abs (test code=ABASO) 0.1 K/cumm 0.00-0.21 XR CHEST 2V, [id number] 14:32:05EXAM: Chest x-ray, 2 viewsLOCATION: [id number]: Chest radiograph 08/06/2015INDICATION: CoughDISCUSSION:A single AP chest radiograph was submitted for interpretation. Theprojection is lordotic.There is diffuse interstitial prominence with mild bibasilar opacity.Both costophrenic angles are blunted. The cardiac silhouette is mildly enlarged. No acute osseous abnormalities are identified. IMPRESSION:1. Diffuse interstitial prominence may be due to interstitial edema.2. Nonspecific mild bibasilar opacities. Possible small bilateralpleural effusions.3. Mildly enlarged cardiac silhouette.
--- OUTSIDE RECORDS SUMMARY | 2018-06-04 16:07 | XMS REPORT | Summary of Care ---
Author Author Fortino GARDNER, [facility] Unknown Address Unknown Phone Unavailable Care Team Providers Care Sales Supervisor Name Role Phone SHAWNEE STEPHENS M.D. 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, E11.22) Status: Active Medications Name Dates Details HydrALAZINE HCl - 50 MG Oral Tablet Active Isosorbide Mononitrate ER 60 MG Oral Tablet Extended Release 24 Hour * Refills: 0 Active Aspirin 81 MG TABS * Refills: 0 Active Atorvastatin Calcium 80 MG Oral Tablet * Refills: 0 Active Bumetanide 2 MG Oral Tablet * Refills: 0 Active Famotidine 20 MG Oral Tablet * Refills: 0 Active Carvedilol 6.25 MG Oral Tablet * Refills: 0 Active Clopidogrel Bisulfate 75 MG Oral Tablet * Refills: 0 Active Warfarin Sodium 6 MG Oral Tablet * Refills: 0 Active Allergies and Adverse Reactions Name Dates Details Allergy history not documented Status: Procedures Procedure Dates Details [QLH] BASIC METABOLIC PANEL W/EGFR Date: 10-Mar-2018 [QLH] BASIC METABOLIC PANEL W/EGFR Date: 25-Mar-2018 [QLH] IRON AND TOTAL IRON BINDING CAPACITY Date: 25-Mar-2018 [QLH] FERRITIN Date: 25-Mar-2018 [QLH] URINALYSIS, COMPLETE Date: 25-Mar-2018 [QH] PROTEIN, TOTAL W/CREAT, RANDOM URINE Date: 25-Mar-2018 [QLH] VITAMIN D, 25-HYDROXY, LC/MS/MS Date: 25-Mar-2018 [QLH] PTH, INTACT (WITHOUT CALCIUM) Date: 25-Mar-2018 Immunization Name Dates Details Immunizations not documented Social History Name Dates Details Unknown if ever smoked Vital Signs Date Test Result Details [id number] BP Systolic 104 mm[Hg] Status: BP Diastolic 63 mm[Hg] Status: Height 65 in Status: Weight 167 lb Status: Body Mass Index Calculated 27.79 kg/m2 Status: Body Surface Area Calculated 1.83 m2 Status: Heart Rate 66 /min Status: Respiration Rate 18 /min Status: O2 SAT 93 % Status: Comments: Source: RA Results Date Description Value Details Results not documented Plan of Care Name Dates Details Planned Observations [QLH] BASIC METABOLIC PANEL W/EGFR Intent Comments: Approx [id number] [QLH] FERRITIN Intent Comments: Approx [id number] [QLH] VITAMIN D, 25-HYDROXY, LC/MS/MS Intent Comments: Approx [id number] [QLH] PTH, INTACT (WITHOUT CALCIUM) Intent Comments: Approx [id number] Planned Goals not documented Planned Encounters Appointment; SHAWNEE STEPHENS M.D. On: 29-Jul-2018 14:15 Interventions Provided Labs/Procedures/Imaging* [QH] PROTEIN, TOTAL W/CREAT, RANDOM URINE; To Be Done: 25 Mar 2018 * [QLH] IRON AND TOTAL IRON BINDING CAPACITY; To Be Done: 25 Mar 2018 * [QLH] URINALYSIS, COMPLETE; To Be Done: 25 Mar 2018 Instructions Name Dates Details Instructions not documented Encounters Appointment; SHAWNEE STEPHENS M.D. Encounter Diagnosis: Problem not documented On: 25-Mar-2018 14:00
--- NOTE | 2018-06-04 16:53 | NUR ---
Received patient from ER via wheelchair. AAOX4 to time, person, place, situation. Respirations even and unlabored. O2 83% on room air. Denies sob. Placed on 2L NC. SPO2 95%. Tele 2402 SR. Oriented patient to room. Voiced understanding. Patient states "I don't have a list of my medications and I don't know the names. Ask my daughter. " Called Pauline Worthington, patient's daughter with no response, left message to call back.
[2018-06-04 17:00] VITALS: BP 136/64
--- NOTE | 2018-06-04 17:00 | NUR ---
Right hand 22G IV started
[2018-06-04 17:32] VITALS: BP 136/64
[2018-06-04] MEDS: FUROSEMIDE INJ 10 MG/ML 4 ML VIAL IV SCH ×2 (18:22→21:24)
[2018-06-04 18:30] LABS: BASOPHILS % 0.3 % (0.0-1.0); EOSINOPHILS # (AUTO) 0.3 (0.0-0.4); EOSINOPHILS % 4.3 % (0.0-6.0); HEMATOCRIT 20.8 % (38.2-49.6); LYMPHOCYTES # (AUTO) 1.4 (1.0-3.2); LYMPHOCYTES % 21.8 % (18.0-39.1); MEAN CORPUSCULAR HEMOGLOBIN 29.8 pg (28-32); MEAN CORPUSCULAR HGB CONC 32.2 g/dL (31-35); MEAN CORPUSCULAR VOLUME 92.4 fL (81-99); MONOCYTES # (AUTO) 0.6 (0.2-0.8); MONOCYTES % 9.1 % (4.4-11.3); PLATELET COUNT 286 x10e3/uL (140-360); RED BLOOD COUNT 2.25 x10e6/uL (4.3-5.7); RED CELL DISTRIBUTION WIDTH 15.2 % (11.7-14.4)
[2018-06-04 18:50] LABS: HEMOGLOBIN 6.7 g/dL (14.0-18.0)
[2018-06-04 18:54] LABS: ALBUMIN 2.3 g/dL (3.5-5.0); ALBUMIN/GLOBULIN RATIO 0.5 (0.8-2.0); ANION GAP 14.1 mmol/L (8-16); CREATININE, SERUM 2.52 mg/dL (0.72-1.25); POTASSIUM 4.1 mmol/L (3.5-5.1)
--- NOTE | 2018-06-04 18:57 | NUR ---
Dr.Hamer Mustafa aware of Hgb see orders
[2018-06-04] MEDS ORDERED: SODIUM CHLORIDE 0.9% 250ML 250 ML IV ONE (19:00)
--- NOTE | 2018-06-04 19:00 | NUR ---
Report given to oncoming nurse of patient's status. No s/s of acute distress noted.
[2018-06-04] MEDS ORDERED: ZOLPIDEM TARTRATE 10 MG TAB PO PRN (20:15)
[2018-06-04] MEDS ORDERED: HYDRALAZINE HCL 20 MG/ML VIAL IV PRN (20:30)
--- NOTE | 2018-06-04 20:57 | NUR ---
medical technologist microbiology reported antibodies were found in patient's blood and their will be a day in blood transfusion, anticipated arrival is in the am.
[2018-06-04] MEDS: FUROSEMIDE INJ 10 MG/ML 4 ML VIAL IV ONE ×2 (21:23→21:24)
--- NOTE | 2018-06-04 21:31 | Diagnostic Imaging Report ---
CHEST 2 VIEWS, Technique: CHEST 2 VIEWS Comparison: None Clinical history: Congestive heart failure DISCUSSION: Cardiac silhouette is partially obscured but appears within normal limits. Central interstitial opacities. Small right pleural effusion with associated basilar/middle lobe opacity IMPRESSION: Findings which may reflect edema with small right effusion and associated atelectasis. Cannot exclude superimposed infection in the proper clinical setting. Signed by: Dr Ann Devries MD on 06/04/2018 9:28 PM
--- NOTE | 2018-06-04 21:39 | NUR ---
Per MD bladder scan done: 282mL
[2018-06-04 21:43] VITALS: BP 171/74
--- NOTE | 2018-06-04 22:29 | Consultation ---
DATE OF CONSULTATION: June 04, 2018 PULMONARY/CRITICAL CARE CONSULTATION CHIEF COMPLAINT: Dyspnea and history of heart problems. HISTORY OF PRESENT ILLNESS: The patient is a 67-year-old man. He reports being hospitalized at [facility] for several weeks in the spring and then again hospitalized at [facility] 3 or 4 months ago with heart problems and fluid overload. He previously had some stents placed. He also had a prior thoracentesis. The patient now complains of worsening dyspnea with exertion. He notes fatigue. He does not complain of chest pain. He has minimal cough. He has no wheezing. He does not note any fevers. PAST MEDICAL HISTORY: 1. Coronary artery disease. 2. Congestive heart failure. 3. He denies any prior kidney problems. PAST SURGICAL HISTORY: Status post stent placement. FAMILY HISTORY: Noncontributory. ALLERGIES: NO KNOWN DRUG ALLERGIES. SOCIAL HISTORY: He was a smoker up until about 8 years ago. He smoked about half a pack a day. He is not a drinker. REVIEW OF SYSTEMS: He has no fever. He has no headache. He has no neck pain. He is not having any chest pain. He does note dyspnea and difficulty breathing. He has no cough. He is not having any abdominal pain. He notes no nausea or vomiting. He specifically denies any blood in the stool or any blood in the urine. He has not vomited up any blood. PHYSICAL EXAMINATION: VITAL SIGNS: The patient is afebrile. Vital signs are stable. HEENT: No facial swelling. No erythema. The nasal mucosa is normal. The oropharynx is normal. LYMPHATIC: No submandibular, cervical or supraclavicular adenopathy. CARDIAC: Regular rate and rhythm with normal S1 and S2. There are no murmurs or rubs. LUNGS: Auscultation of the lungs reveals clear breath sounds bilaterally. There is no wheezing. ABDOMEN: Soft and nontender. There is no rebound or guarding. EXTREMITIES: No leg edema or calf tenderness. There is no cyanosis or clubbing. SKIN: No rashes. NEUROLOGIC: No focal abnormalities. LABORATORY DATA: BUN to creatinine ratio is 48 to 2.5. The hemoglobin is 6.7 with an MCV of 92 and platelet count of 286. IMPRESSION: 1. Vyfvp-eb-jpsqbku systolic heart failure. 2. Anemia secondary to chronic blood loss. 3. Xvgji-qm-hjnsusd renal insufficiency. 4. Coronary artery disease. 5. Prior smoking history. PLAN: 1. The patient will receive 2 units of packed red blood cells. 2. The patient will begin Lasix 80 mg IV q.8h. 3. PA and lateral chest x-ray. 4. Ultrasound of the kidneys. 5. Renal consultation. 6. Monitor blood counts, electrolytes and renal function closely. Job#: [id number] SUB
[2018-06-04 22:55] VITALS: BP 171/74
[2018-06-04 23:39] VITALS: BP 160/74
[2018-06-05] VITALS (7 sets, daily range): BP systolic 120–178; BP diastolic 58–87
[2018-06-05] MEDS: FUROSEMIDE INJ 10 MG/ML 4 ML VIAL IV SCH ×2 (05:51→21:52)
[2018-06-05 06:23] LABS: BASOPHILS % 0.3 % (0.0-1.0); EOSINOPHILS # (AUTO) 0.3 (0.0-0.4); LYMPHOCYTES # (AUTO) 1.5 (1.0-3.2); LYMPHOCYTES % 24.1 % (18.0-39.1); MEAN CORPUSCULAR HEMOGLOBIN 30.3 pg (28-32); MEAN CORPUSCULAR HGB CONC 32.8 g/dL (31-35); MEAN CORPUSCULAR VOLUME 92.3 fL (81-99); MONOCYTES # (AUTO) 0.7 (0.2-0.8); MONOCYTES % 10.3 % (4.4-11.3); NEUTROPHILS # (AUTO) 3.8 (2.1-6.9); NEUTROPHILS % 59.8 % (38.7-80.0); PLATELET COUNT 278 x10e3/uL (140-360); RED BLOOD COUNT 2.21 x10e6/uL (4.3-5.7); RED CELL DISTRIBUTION WIDTH 15.2 % (11.7-14.4)
[2018-06-05 06:26] LABS: HEMOGLOBIN 6.7 g/dL (14.0-18.0)
[2018-06-05 06:27] LABS: HEMATOCRIT 20.4 % (38.2-49.6)
--- NOTE | 2018-06-05 06:30 | NUR ---
Notified by lab blood is ready for transfusion
[2018-06-05 06:42] LABS: ALBUMIN 2.3 g/dL (3.5-5.0); ALBUMIN/GLOBULIN RATIO 0.5 (0.8-2.0); CALCIUM 8.4 mg/dL (8.4-10.2); CREATININE, SERUM 2.54 mg/dL (0.72-1.25); MAGNESIUM 1.6 MG/DL (1.3-2.1)
[2018-06-05] MEDS: HYDRALAZINE HCL 25 MG TAB PO SCH ×3 (09:00→20:40)
[2018-06-05] MEDS: CARVEDILOL 3.125 MG TAB PO SCH ×2 (09:00→17:50)
--- NOTE | 2018-06-05 10:49 | NUR ---
CASE MANAGEMENT INITIAL ASSESSMENT Director Digital Sales to bedside to discuss plan of care with patient/family. CM/SW role and care transitions discussed. Anticipated discharge plan discussed along with duration of care. CM/SW discussed patients right to make decisions in care. CM/SW work hours given. Patient lives: IN OWN HOME WITH FAMILY IN SINGLE STORY HOUSE Admit/Transfer: VIA ED FROM HOME POA/Emergency contact: ERMA HOPKINS Current/Previous Home Health: NONE PCP/Follow-up Care: DAVID Current/Previous DME: NONE Other Services: NONE Employment Status: RETIRED Areas of Concerns: NONE Referral Needs: NONE Education Needs: NONE IMM/SHORE given and signed (if applicable): ON ADMISSION Goal for discharge: RETURN HOME INDEPENDENTLY CM/SW left business card at the bedside with contact information. Name and number was also written on the patients whiteboard. Patient verbalized understanding of discussion. CM will follow-up with ongoing discharge and transition of care needs.
[2018-06-05] MEDS ORDERED: CARVEDILOL3.125 MG PO (13:43)
[2018-06-05] MEDS ORDERED: CLOPIDOGREL75 MG PO (13:43)
[2018-06-05] MEDS ORDERED: ASPIR-LOW81 MG PO (13:43)
[2018-06-05] MEDS ORDERED: ISOSORBIDE MONO20 MG PO (13:43)
[2018-06-05] MEDS ORDERED: ALBUTEROL SULFATE HFA 8GM INHALATION AEROSOL INH PRN (13:45)
[2018-06-05] MEDS ORDERED: BUMETANIDE1 MG PO (13:51)
[2018-06-05] MEDS ORDERED: VENTOLIN HFA18 GM INH (13:51)
[2018-06-05] MEDS ORDERED: LIPITOR20 MG PO (13:51)
[2018-06-05] MEDS ORDERED: HYDRALAZINE HCL25 MG PO (13:51)
[2018-06-05] MEDS ORDERED: RANITIDINE HCL150 M1 PO (13:51)
[2018-06-05] MEDS: CLOPIDOGREL BISULFATE 75 MG TAB PO SCH (14:00)
[2018-06-05] MEDS: ISOSORBIDE MONONITRATE 30 MG TAB CR PO SCH (14:00)
[2018-06-05] MEDS ORDERED: SODIUM CHLORIDE 0.9% 250ML 250 ML ONE ×2 (14:00→17:58)
--- NOTE | 2018-06-05 14:40 | Progress Note ---
DATE: June 05, 2018 PULMONARY CRITICAL CARE PROGRESS NOTE SUBJECTIVE: Patient had significant diuresis with Lasix yesterday. He had some improvement, but still feels weak. He reports difficulty breathing and shortness of breath with minimal exertion. PHYSICAL EXAMINATION VITAL SIGNS: The patient is afebrile. The vital signs are stable. HEENT: No facial swelling or erythema. CARDIAC: Regular rate and rhythm with normal S1 and S2. LUNGS: Auscultation of the lungs shows few crackles at the base. ABDOMEN: Soft and nontender. There is no rebound or guarding. EXTREMITIES: No leg edema or calf tenderness. IMPRESSION 1. Anemia secondary to chronic blood loss. 2. Bvqhx-xv-soqbkmo systolic congestive heart failure. 3. Ujhcz-ig-jfgghlb renal insufficiency. 4. Coronary artery disease. PLAN 1. Patient to receive 2 units of packed red blood cells today. 2. Continue Lasix. 3. Ultrasound of the kidney and nephrology evaluation is still pending. Job#: [id number] THIAGO
--- NOTE | 2018-06-05 15:53 | NUR ---
Nutrition Screen Note RD Recommendation for Physician: Continue Diet as ordered Plan of Care: RD following, monitoring for adequacy and tolerance Nutrition reason for involvement: MD Consult Primary Diagnose(s): systolic heart failure Ht: 65in Wt:174lbs BMI:29 kg/m2 IBW:136lbs RD Assessment:(06/05/2018) Initial encounter with patient. Pt speaks Kyrgyz and no [place]an. Pt has missing teeth. Good Po intake. No N, V or diarrhea. Current Diet: Cardiac diet Malnutrition Evaluation (06/05/2018) The patient does not meet criteria for a specified degree of malnutrition at this time. Will re-evaluate at follow-up as appropriate. Diet Education Needs Assessment: Diet education not indicated. Diet Adequacy: (Meeting calorie needs, Meeting protein needs, Meeting fluid needs Tolerance: Tolerating PO Nutrition Care Level:Akbar Clay RD, LD, CNSC
[2018-06-05] MEDS ORDERED: FUROSEMIDE INJ 10 MG/ML 4 ML VIAL IV ONE (17:30)
--- NOTE | 2018-06-05 19:04 | Consultation ---
DATE OF CONSULTATION: June 05, 2018 ATTENDING PHYSICIAN: Dr. Wander Villafuerte. REASON FOR CONSULTATION: Acute kidney injury, volume overload, severe anemia. HISTORY OF PRESENT ILLNESS: Patient is a very pleasant 67-year-old male with past medical history of diabetes for more than 10 years, hypertension, coronary artery disease status post stent, CHF with ejection fraction of 25% who was admitted with worsening shortness of breath and lower extremity swelling. Patient was found to have severe anemia, hemoglobin of 6.7, currently getting 2 units of PRBC. He was found to have a creatinine of 2.5. Patient also had a chest x-ray done that has evidence of pulmonary edema. Patient was started on Lasix 80 mg IV q.8 hours that was changed to 80 mg IV q.12 hours today. Patient's bilateral lower extremity swelling is better and he is already feeling better with his breathing. He is being followed by Dr. Hernandez as an outpatient and according to him, Dr. Hernandez already told him that his kidney function is low, but he does not know the number. PAST MEDICAL HISTORY: Coronary artery disease, CHF, CKD, unknown creatinine. PAST SURGICAL HISTORY: Cardiac stent placement. FAMILY HISTORY: No history of any kidney disease. ALLERGIES: NO KNOWN DRUG ALLERGIES. SOCIAL HISTORY: He used to smoke tobacco, quit 8 years ago, 1/2 a pack a day. No alcohol or intravenous drug abuse. REVIEW OF SYSTEMS GENERAL: Positive fatigue. No fever. No chills. HEENT: No headache or blurred vision. NECK: No dysphagia. CARDIOVASCULAR: No chest pain. No PND. No orthopnea. RESPIRATORY: Positive shortness of breath. Positive dyspnea on exertion. No cough. No hemoptysis. GI: No nausea, vomiting, diarrhea, constipation, abdominal pain, hematemesis, or melena. MUSCULOSKELETAL: Positive ankle swelling. NEUROLOGIC: No numbness, weakness, or tingling. SKIN: No new rash. MEDICATIONS: Currently, the patient is on hydralazine 25 mg p.o. t.i.d., Plavix, isosorbide, carvedilol, Lasix 80 mg IM q.8 hours, Ambien p.r.n. PHYSICAL EXAMINATION VITAL SIGNS: Blood pressure 156/66, pulse of 61, respirations 18, temperature 96.6, and 98% on 2 liters of nasal cannula. GENERAL: The patient is awake and alert, very pleasant, oriented x3. Not in apparent distress. HEENT: PERRLA. Extraocular muscles intact. NECK: No elevated JVD. HEART: S1 and S2. LUNGS: Bilateral basilar crackles. ABDOMEN: Soft. Bowel sounds positive. No tenderness to palpate. EXTREMITIES: Trace bilateral lower extremity swelling. NEUROLOGICAL: No focal deficits. SKIN: No new rash. LABORATORY DATA: Sodium 140, potassium 4, chloride 105, CO2 of 26, BUN 49, creatinine 2.54, glucose 97. White count 6.3, hemoglobin 6.7, platelet count is 278. AST 13, ALT 14, alk phos 99. EF according to an echo done yesterday was 25% ejection fraction. Chest x-ray showed central interstitial opacities, small right pleural effusion. ASSESSMENT AND PLAN 1. Acute kidney injury. Patient's baseline creatinine is unknown. Suspect patient has underlying CKD from diabetes plus/minus hypertension. Follow up on the renal ultrasound and will check urine protein creatinine ratio. Will continue with IV diuretics for now. Repeat the lab in the morning. Avoid nephrotoxic medications. 2. Ajeaw-oz-kqdasec systolic congestive heart failure. Continue with Lasix 80 mg IV q.12 hours. 3. Anemia. Currently, patient is getting PRBC. May have iron deficiency. Will get a fecal occult blood, urine protein creatinine ratio, and also check serum protein electrophoresis. Patient may have anemia secondary to CKD and may need Epogen as an outpatient. 4. Coronary artery disease, status post stent. No acute issues. I want to thank, Dr. Villafuerte for the consult. We will follow the patient with you. Job#: [id number] RTJuanis
[2018-06-05] MEDS ORDERED: ATORVASTATIN 20 MG TAB PO SCH (21:00)
[2018-06-05 23:22] LABS: BILIRUBIN,URINE NEGATIVE (NEGATIVE); CLARITY,URINE CLEAR (CLEAR); COLOR,URINE YELLOW (YELLOW); KETONES,URINE NEGATIVE (NEGATIVE); LEUKOCYTE ESTERASE ,URINE NEGATIVE (NEGATIVE); NITRITE,URINE NEGATIVE (NEGATIVE); PROTEIN,URINE DIPSTICK 2+ (NEGATIVE); URINE UROBILINOGEN 0.2 mg/dL (0.2 - 1)
[2018-06-05 23:28] LABS: BACTERIA,URINE RARE /HPF; EPITHELIAL CELLS,URINE RARE /LPF
[2018-06-06] VITALS: BP 156/74
[2018-06-06 00:27] LABS: CREATININE,URINE RANDOM 18.25 mg/dL (63-166)
[2018-06-06 04:00] VITALS: BP 134/61
[2018-06-06 06:07] LABS: BASOPHILS % 0.3 % (0.0-1.0); EOSINOPHILS # (AUTO) 0.5 (0.0-0.4); EOSINOPHILS % 6.4 % (0.0-6.0); HEMATOCRIT 30.3 % (38.2-49.6); HEMOGLOBIN 10.3 g/dL (14.0-18.0); LYMPHOCYTES # (AUTO) 1.1 (1.0-3.2); LYMPHOCYTES % 14.9 % (18.0-39.1); MEAN CORPUSCULAR HEMOGLOBIN 29.6 pg (28-32); MEAN CORPUSCULAR VOLUME 87.1 fL (81-99); MONOCYTES # (AUTO) 0.8 (0.2-0.8); MONOCYTES % 11.2 % (4.4-11.3); NEUTROPHILS # (AUTO) 4.7 (2.1-6.9); NEUTROPHILS % 66.6 % (38.7-80.0); PLATELET COUNT 279 x10e3/uL (140-360); RED BLOOD COUNT 3.48 x10e6/uL (4.3-5.7); RED CELL DISTRIBUTION WIDTH 16.5 % (11.7-14.4)
[2018-06-06 06:26] LABS: ALBUMIN 2.3 g/dL (3.5-5.0); ALBUMIN/GLOBULIN RATIO 0.5 (0.8-2.0); ANION GAP 13.9 mmol/L (8-16); CALCIUM 8.4 mg/dL (8.4-10.2); CREATININE, SERUM 2.43 mg/dL (0.72-1.25); POTASSIUM 3.9 mmol/L (3.5-5.1)
[2018-06-06 07:39] LABS: TOTAL PROTEIN, URINE 227.4 mg/dL (1-14)
[2018-06-06 08:09] VITALS: BP 107/60
[2018-06-06] MEDS: ISOSORBIDE MONONITRATE 30 MG TAB CR PO SCH (08:09)
[2018-06-06] MEDS: FUROSEMIDE INJ 10 MG/ML 4 ML VIAL IV SCH (08:09)
[2018-06-06] MEDS: CLOPIDOGREL BISULFATE 75 MG TAB PO SCH (08:09)
[2018-06-06] MEDS: HYDRALAZINE HCL 25 MG TAB PO SCH (08:09)
[2018-06-06] MEDS: CARVEDILOL 3.125 MG TAB PO SCH (08:09)
--- NOTE | 2018-06-06 08:09 | NUR ---
assessment complete no distress noted,updated on poc voiced understanding, denies pain at this time, r wrist 20g no ss of infiltration noted, l hand 22 g infiltrated, iv removed, covered with 2x2 and tape, no other co voiced call light in reach will continue ot monitor
--- NOTE | 2018-06-06 10:01 | Discharge Summary ---
FINAL DIAGNOSES 1. Acute systolic heart failure. 2. Renal insufficiency. 3. Anemia. PROCEDURE PERFORMED: On the patient include transfusion with 2 units of packed red blood cells. HOSPITAL COURSE: The patient was admitted from the office with severe dyspnea and fluid overload. The patient had an echocardiogram in the office which demonstrated an ejection fraction of 25%. On arrival the patient was noted to have a creatinine of 2.5 and the Nephrology consult was called. The patient was also noted to have a hemoglobin of 6.7. The patient was diuresed extensively with intravenous Lasix and the patient was given 2 units of packed red blood cells. Since the patient's creatinine was 2.5, the patient was not a candidate for LINDA inhibitor so angiotensin with septic blockers and the patient was continued on hydralazine and isosorbide for after load reduction. The patient was also discharged on carvedilol and atorvastatin. The patient was instructed to followup in the office in 1 week. The patient was instructed to follow a low salt diet. SIGIFREDO DWYER MD Job#: [id number] NICKI
[2018-06-06 12:05] VITALS: BP 119/66
== END 2018-06-06 12:22 | disposition home or self-care (01) | DRG 291 ==
LOC: ER 16:01 → ERHOLD 16:48 → MED/SURG 16:53
PROVIDERS: ADMIT Internal Medicine Cardiovascular Disease; ATTEND Internal Medicine Cardiovascular Disease
DX: I13.0 Hypertensive heart and chronic kidney disease with heart failure and stage 1 through stage 4 chronic kidney disease, or unspecified chronic kidney disease (principal); I50.23 Acute on chronic systolic (congestive) heart failure; N18.9 Chronic kidney disease, unspecified; E11.22 Type 2 diabetes mellitus with diabetic chronic kidney disease; Z79.4 Long term (current) use of insulin; I25.10 Atherosclerotic heart disease of native coronary artery without angina pectoris; Z95.5 Presence of coronary angioplasty implant and graft; D64.9 Anemia, unspecified; D63.1 Anemia in chronic kidney disease
CPT/HCPCS: 36415; 71046; 80053; 81001; 82270; 82570; 82948; 83735; 84152; 84156; 84165; 84166; 85025; 86850; 86870; 86880; 86900; 86905; 86920; 86922; 93306; 99001; J1940; J7050; P9016